=== PATIENT | male | born 1955 | race Caucasian/White ===

== ENCOUNTER 2018-02-12 11:57 | Outpatient (CLI) | payer BC ==
[~2018-02-12] VITALS: Ht 190.5 cm; Wt 103.5 kg
[2018-02-12] MEDS ORDERED: LEVO200T PO (12:11)
[2018-02-12] MEDS ORDERED: FLUO20CA25 PO (12:11)
[2018-02-12] MEDS ORDERED: TAMS0.4C2 PO (12:11)
[2018-02-12 12:22] VITALS: BP 145/84
== END 2018-02-12 12:58 | disposition home or self-care (01) ==
LOC: PREOP 11:57
PROVIDERS: ATTEND Podiatrist Foot & Ankle Surgery
DX: Z01.818 Encounter for other preprocedural examination (principal)
CPT/HCPCS: 87081

== ENCOUNTER 2018-02-24 06:19 | Day surgery (SDC) | payer BC ==
[~2018-02-24] VITALS: Ht 190.5 cm; Wt 103.5 kg
[~2018-02-24 06:19] MED LIST: FLUO20CA25 PO; LEVO200T PO; TAMS0.4C2 PO
[2018-02-24] MEDS ORDERED: LACTATED RINGERS 1,000 ML IV PRN (06:23)
[2018-02-24] MEDS ORDERED: ceFAZolin INJECTION 1,000 MG in NS (IVPB) 50 ML IV ONE (06:30)
[2018-02-24 06:35] VITALS: BP 141/84
--- OUTSIDE RECORDS SUMMARY | 2018-02-24 06:42 | XMS REPORT ---
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 Active 98563819 Problem Major depressive disorder, single episode, unspecified F32.9 Active 53008207 Problem Hypocalcemia E83.51 Active 6297581 Problem Cochlear implant in place Z96.21 Active 403821631 Problem Cellulitis of head except face L03.811 Active 201517485 Problem Malignant neoplasm of brain C71.9 Active 876402868 Problem Dermatophytosis of groin and perianal area B35.6 Active 763725977 Problem Unspecified psychosis F29 Active 07540884 Problem Neoplasm of brain D49.6 Active 125438185 Problem Tobacco abuse Z72.0 Active 109698976 Problem Tobacco abuse counseling Z71.6 Active 214747206 Problem Cardiac arrhythmia, unspecified cardiac arrhythmia type I49.9 Active 67247407 Problem Crohn's disease, unspecified, with other complication K50.918 Active 57203665 Problem Foot pain, left M79.672 Active 35830932 Problem Hypercalcemia E83.52 Active 17877045 ALLERGIES Substance Reaction Event Type Date Status Aspirin crohns Drug Allergy Jan, Active ENCOUNTERS Encounter Location Date Diagnosis [facility] [address] [place] [address] Jan, Bone spur of foot M77.50 and Foot pain, left M79.672 [facility] [address] [place] [address] Dec, Difficulty swallowing solids R13.10 ; Fatigue, unspecified type R53.83 ; Hyperparathyroidism E21.3 and 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 [facility] [address] [place] [address] [place] [address] Dec, [facility] [place] [address] [place] [address] Oct, Post- surgical hypothyroidism E89.0 [facility] [place] [address] [place] [address] May, Hyperparathyroidism E21.3 [facility] [place] [address] [place] [address] Mar, Hyperparathyroidism E21.3 ; Hypocalcemia E83.51 and Major depressive disorder, single episode, unspecified F32.9 [facility] [place] [address] [place] [address] Mar, Cellulitis of head except face L03.811 and Cochlear implant in place Z96.21 [facility] [place] [address] [place] [address] Feb, [facility] [place] [address] [place] [address] Feb, 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 [facility] [place] [address] [place] [address] Nov, Hyperparathyroidism E21.3 [facility] [place] [address] [place] [address] Oct, Hyperparathyroidism E21.3 [facility] [place] [address] [place] [address] Oct, [facility] [place] [address] [place] [address] Oct, [facility] [place] [address] [place] [address] Oct, [facility] [place] [address] [place] [address] Oct, [facility] [place] [address] [facility] [id number] [address] Oct, [facility] [place] [address] [place] [address] September, 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 [facility] [place] [address] [place] [address] September, Hypocalcemia E83.51 ; 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 and Major depressive disorder, single episode, unspecified F32.9 [facility] [address] [place] [address] September, Suicidal ideation R45.851 [facility] [address] [place] [address] Aug, Hypocalcemia E83.51 [facility] [place] [address] [place] [address] Jul, 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 [facility] [address] [place] [address] Jul, Hypercalcemia E83.52 [facility] [place] [address] [place] [address] Jul, Cellulitis of neck L03.221 [facility] [address] [place] [address] Jul, Cellulitis of other specified site L03.818 and Infected incision, initial encounter T81.4XXA [facility] [address] [place] [address] Jun, Hypercalcemia E83.52 [facility] [place] [address] [place] [address] Apr, Hypercalcemia E83.52 and Hyperparathyroidism E21.3 [facility] [place] [address] [place] [address] Apr, Hypercalcemia E83.52 [facility] [place] [address] [place] [address] Apr, Cardiac arrhythmia, unspecified cardiac arrhythmia type I49.9 and Pre-op evaluation Z01.818 [facility] [place] [address] [place] [address] 29 Oct, 2016 Cellulitis of head except face L03.811 [facility] [address] [place] [address] Oct, [facility] [address] [place] [address] Oct, Foot pain, left M79.672 ; Cardiac arrhythmia, unspecified cardiac arrhythmia type I49.9 ; Tobacco abuse Z72.0 ; Tobacco abuse counseling Z71.6 and Crohn's disease, unspecified, with other complication K50.[address] [address] Oct, Screening PSA (prostate specific antigen) Z12.[address] [address] Mar, Otitis externa of right ear H60.91 and Otitis media, right H66.[address] [address] Dec, Visit for suture removal V58.[address] [place] [address] Aug, [address] [place] [address] Aug, [facility] [address] [place] [address] Jun, [address] [place] [address] Jun, [facility] [address] [place] [address] Mar, [facility] [place] [address] [place], [place] [id number] [place] [address] Mar, [address] [address] Jan, [facility] [place] [address] [place], [place] [id number] [place] [address] Jan, [facility] [address] [place] [address] Jan, [facility] [place] [address] [facility] [id number], [place] [address] Jan, [facility] [address] [facility] [id number], [place] [address] Jan, [facility] [address] [facility] [id number], [place] [address] Dec, [facility] [place] [address] [place] [address] Dec, [facility] [place] [address] [place] [address] Dec, [facility] [address] [facility] [id number], [place] [address] Dec, [facility] [place] [address] [place] [address] Nov, [facility] [place] [address] [id number], [place] [address] Nov, [facility] [place] [address] [id number], [place] [address] Oct, [facility] [place] [address] [place] [address] Oct, [facility] [place] [address] [place] [address] Oct, [facility] [place] [address] [id number], [place] [address] Oct, [facility] [place] [address] [place] [address] September, [facility] [place] [address] [id number], [place] [address] September, [facility] [place] [address] [place] [address] Aug, [facility] [place] [address] [place] [address] Aug, [facility] [address] [id number], [place] [address] Aug, [facility] [place] [address], [place] [address] Aug, [facility] [address] [place] [address] Aug, [facility] [place] [address], [place] [address] Aug, [facility] [place] [address] May, [facility] [place] [address] [place] [address] May, [facility] [place] [address] Apr, [facility] [place] [id number] [place] [address] Apr, [facility] [place] [address] Feb, [facility] [place] [id number] [place] [address] Feb, [facility] [id number] [place] [address] Jan, [facility] [place] [address] [place] [address] Dec, [facility] [address] [place] [address] Dec, [address] [address] Dec, IMMUNIZATIONS No Known Immunizations SOCIAL HISTORY Never Assessed REASON FOR VISIT pre surgery physical , Bone spur surgery Nemo RN PLAN OF CARE Activity Details Follow Up prn Reason: VITAL SIGNS Height 73 in 2018-02-12 Weight 226.7 lbs 2018-02-12 Temperature 97.9 degrees Fahrenheit 2018-02-12 Heart Rate 67 bpm 2018-02-12 Respiratory Rate 16 2018-02-12 BMI 29.91 kg/m2 2018-02-12 Blood pressure systolic 136 mmHg 2018-02-12 Blood pressure diastolic 68 mmHg 2018-02-12 MEDICATIONS Medication Instructions Dosage Frequency Start Date End Date Duration Status Tums 500 mg Orally Four times a day 2 tablets 6h Active Synthroid 200 MCG Orally Once a day 1 tablet on an empty stomach in the morning 24h Feb, 30 day(s) Active Tamsulosin HCl 0.4 1 tab daily Active Fluoxetine HCl 20 mg Orally Once a day 1 capsule in the morning 24h 30 Active RESULTS No Results PROCEDURES No Known procedures INSTRUCTIONS MEDICATIONS ADMINISTERED No Known Medications MEDICAL (GENERAL) HISTORY Type Description Date Medical History Neoplasm of unspecified nature of brain Medical History Intracranial abscess Medical History Malignant neoplasm of brain, unspecified site Medical History Dermatophytosis of groin and perianal area Medical History Hematuria, unspecified Medical History Calculus of kidney Medical History Impacted cerumen Medical History Acute sinusitis, unspecified Medical History Fever, unspecified Medical History Unspecified psychosis Medical History Calculus of ureter Medical History Other bilateral bundle branch block Medical History Other specified cardiac dysrhythmias Medical History Benign neoplasm of bone and articular cartilage, site unspecified Medical History Regional enteritis of unspecified site Medical History Dysfunction of Eustachian tube Medical History Acute suppurative otitis media without spontaneous rupture of eardrum Medical History parathyroid/thyroid removal Medical History Intracranial abscess Medical History Dysfunction of Eustachian tube Medical History Calculus of ureter Medical History Regional enteritis of unspecified site Surgical History TUMOR REMOVAL Surgical History thyroidectomy, complete Hospitalization History Surgery(s) only
--- OUTSIDE RECORDS SUMMARY | 2018-02-24 06:42 | XMS REPORT | Referral Summary ---
Author Author [facility] Organization [facility] Address Unknown Phone Unavailable Care Team Providers Care Coroner Forensic Technician Name Role Phone Bennie Mcmillan PCP Encounter VC Date(s): 06/06/16 - 06/08/16 [facility] [address] [place] [address] Discharge Disposition: 01-Home or Self Care Attending Physician: Jeff Trevizo MD Admitting Physician: Jeff Trevizo MD Vital Signs Most recent to 1 oldest [Reference Range]: Temperature Oral 36.8 degC [35.8-37.3 degC] (06/08/16 12:27 PM) Temperature Skin 37.9 degC [36-37 degC] *HI* (06/07/16 2:15 PM) Temperature Temporal 36.4 degC Artery [36.3-37.8 (06/06/16 6:00 AM) degC] Peripheral Pulse 52 bpm Rate [60-100 bpm] *LOW* (06/08/16 12:27 PM) Heart Rate Monitored 69 bpm [60-100 bpm] (06/07/16 2:59 PM) Respiratory Rate 18 br/min [14-20 br/min] (06/08/16 12:27 PM) Blood Pressure 116/74 mmHg [90-140/60-90 mmHg] (06/08/16 12:27 PM) Mean Arterial 101 mmHg Pressure, Cuff (06/07/16 2:45 PM) SpO2 93 % (06/08/16 12:27 PM) Problem List Condition Effective Dates Status Health Status Informant Acute Active pain(Confirmed) Hypercalcemia(Confir Active patient med) Impaired skin Active integrity(Confirmed) 1 1Problem added automatically by system based on initiation of Impaired Skin Integrity Plan of Care Allergies, Adverse Reactions, Alerts No Known Medication Allergies Medications Percocet 5/325 oral tablet 1-2 tabs, Oral, q4hr, Pain Moderate (4-6), 0 Refill(s) Start Date: 06/08/16 Status: Ordered Rocaltrol 0.25 mcg oral capsule 0.5 mcg 2 caps, Oral, BID, # 120 caps, 0 Refill(s), Pharmacy: [facility], 2 caps Oral BID Start Date: 06/08/16 Status: Ordered tamsulosin 0.4 mg oral capsule 0.4 mg 1 caps, Oral, Daily, 0 Refill(s) Start Date: 06/05/16 Status: Ordered Tums 500 mg oral tablet, chewable 1,000 mg 2 tabs, Oral, QID, # 240 tabs, 0 Refill(s), Pharmacy: [facility], 2 tabs Oral QID Start Date: 06/08/16 Status: Ordered Results Hematology Most recent to 1 oldest [Reference Range]: WBC [4.8-10.8 8.0 10*3/uL 10*3/uL] (06/06/16 6:32 AM) RBC [4.60-6.20] 5.73 (06/06/16 6:32 AM) Hgb [14.0-18.0 17.0 gm/dL gm/dL] (06/06/16 6:32 AM) Hct [42.0-52.0 %] 52.0 % (06/06/16 6:32 AM) MCV [82.0-99.0 fL] 90.8 fL (06/06/16 6:32 AM) MCH [27.0-32.0 pg] 29.7 pg (06/06/16 6:32 AM) MCHC [32.0-36.0 32.7 gm/dL gm/dL] (06/06/16 6:32 AM) RDW [11.5-14.5 %] 13.1 % (06/06/16 6:32 AM) Platelet [150-400 237 10*3/uL 10*3/uL] (06/06/16 6:32 AM) MPV [9.4-12.3 fL] 10.2 fL (06/06/16 6:32 AM) Immature 0.4 % Granulocytes (06/06/16 6:32 AM) [0.0-1.0 %] Neutrophils [51-75 66 % %] (06/06/16 6:32 AM) Lymphocytes [20-46 17 % %] *LOW* (06/06/16 6:32 AM) Monocytes [4-11 %] 9 % (06/06/16 6:32 AM) Eosinophils [0-4 %] 6 % *HI* (06/06/16 6:32 AM) Basophils [0-2 %] 1 % (06/06/16 6:32 AM) Neutro Absolute 5.28 [1.90-7.00] (06/06/16 6:32 AM) Lymph Absolute 1.36 [0.80-3.30] (06/06/16 6:32 AM) Andrews Absolute 0.72 [0.30-1.00] (06/06/16 6:32 AM) Eos Absolute 0.51 [0.00-0.50] *HI* (06/06/16 6:32 AM) Baso Absolute 0.08 [0.00-0.20] (06/06/16 6:32 AM) Nucleated RBC 0.0 /100 WBC Automated [0 /100 (06/06/16 6:32 AM) WBC] Chemistry Most recent to 1 oldest [Reference Range]: Sodium Lvl [136-144 140 mEq/L mEq/L] (06/06/16 6:32 AM) Potassium Lvl 4.3 mEq/L 1 [3.6-5.1 mEq/L] (06/06/16 6:32 AM) Chloride [99-109 108 mEq/L mEq/L] (06/06/16 6:32 AM) CO2 [22-32 mEq/L] 23 mEq/L (06/06/16 6:32 AM) AGAP [3-20] 9 (06/06/16 6:32 AM) BUN [4-20 mg/dL] 12 mg/dL (06/06/16 6:32 AM) Glucose Lvl [70-100 94 mg/dL mg/dL] (06/06/16 6:32 AM) Creatinine Lvl 1.39 mg/dL [0.64-1.27 mg/dL] *HI* (06/06/16 6:32 AM) eGFR [>60] 52 2 *ABN* (06/06/16 6:32 AM) Calcium Lvl 8.4 mg/dL [8.6-10.0 mg/dL] *LOW* (06/08/16 1:26 PM) Albumin Lvl [3.5-4.8 3.7 gm/dL gm/dL] (06/06/16 6:32 AM) Total Protein 7.1 gm/dL [6.1-7.9 gm/dL] (06/06/16 6:32 AM) Globulin [1.9-4.3 3.4 gm/dL gm/dL] (06/06/16 6:32 AM) ALT [17-63 U/L] 19 U/L (06/06/16 6:32 AM) AST [15-41 U/L] 23 U/L (06/06/16 6:32 AM) Alk Phos [26-104 136 U/L U/L] *HI* (06/06/16 6:32 AM) Bili Total [0.2-1.2 0.8 mg/dL 3 mg/dL] (06/06/16 6:32 AM) Surg. Parathyroid 181.2 pg/mL Hormone (06/06/16 7:20 AM) Blood Glucose, 102 mg/dL Capillary [70-100 *HI* mg/dL] (06/07/16 10:21 AM) 1Result Comment: Hemolyzed specimen. The following tests may be affected: ALT, AST, Ammonia, Iron, Potassium, LDH, Amylase, CPK, and Total Bilirubin. 2Result Comment: Multiply eGFR results by 1.21 for race. 3Result Comment: Naproxen, specifically the metabolite O-desmethylnaproxen, may cause spurious elevation in Total Bilirubin levels. Blood Bank Results Most recent to 1 oldest [Reference Range]: ABO/Rh A POS (06/06/16 6:32 AM) Antibody Screen Tube NEG (06/06/16 6:32 AM) Immunizations Given and Recorded Vaccine Date Status Refusal Reason pneumococcal 23-polyvalent vaccine 06/08/16 Given Procedures Procedure Date Related Diagnosis Body Site Thyroidectomy1 06/07/16 Parathyroidectomy2 06/06/16 Anal fistula operation Bone3 Bone (organ)4 Colonoscopy Granuloma5 Hemorrhoidectomy 1auto-populated from documented surgical case 2auto-populated from documented surgical case 3RESTORATION - 2013 4REMOVAL R/T STAPH INFECTION 2013 5REMOVAL RAPA VATIVE GRANULOMA 2014 Social History Social History Type Response Smoking Status Current every day smoker; Tobacco use per day: 1 Pack Assessment and Plan No data available for this section
--- OUTSIDE RECORDS SUMMARY | 2018-02-24 06:42 | XMS REPORT ---
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 Active 32226951 Problem Major depressive disorder, single episode, unspecified F32.9 Active 09496186 Problem Hypocalcemia E83.51 Active 9676163 Problem Cochlear implant in place Z96.21 Active 720279622 Problem Cellulitis of head except face L03.811 Active 180457326 Problem Malignant neoplasm of brain C71.9 Active 522125638 Problem Dermatophytosis of groin and perianal area B35.6 Active 000719476 Problem Unspecified psychosis F29 Active 95904988 Problem Neoplasm of brain D49.6 Active 307657032 Problem Tobacco abuse Z72.0 Active 924552145 Problem Tobacco abuse counseling Z71.6 Active 160203055 Problem Cardiac arrhythmia, unspecified cardiac arrhythmia type I49.9 Active 20331248 Problem Crohn's disease, unspecified, with other complication K50.918 Active 34607099 Problem Foot pain, left M79.672 Active 31060003 Problem Hypercalcemia E83.52 Active 32884756 ALLERGIES Substance Reaction Event Type Date Status Aspirin crohns Drug Allergy Dec, Active ENCOUNTERS Encounter Location Date Diagnosis [facility] [address] [place] [address] Jan, [facility] [address] [place] [address] Dec, Difficulty swallowing solids R13.10 ; Fatigue, unspecified type R53.83 ; Hyperparathyroidism E21.3 and 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 [facility] [address] [address] [place] [address] Dec, [facility] [place] [address] [place] [address] Oct, Post- surgical hypothyroidism E89.0 [facility] [place] [address] [place] [address] May, Hyperparathyroidism E21.3 [facility] [place] [address] [place] [address] Mar, Hyperparathyroidism E21.3 ; Hypocalcemia E83.51 and Major depressive disorder, single episode, unspecified F32.9 [facility] [place] [address] [place] [address] Mar, Cellulitis of head except face L03.811 and Cochlear implant in place Z96.21 [facility] [place] [address] [place] [address] Feb, [facility] [place] [address] [place] [address] Feb, 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 [facility] [place] [address] [place] [address] Nov, Hyperparathyroidism E21.3 [facility] [place] [address] [place] [address] Oct, Hyperparathyroidism E21.3 [facility] [place] [address] [place] [address] Oct, [facility] [place] [address] [place] [address] Oct, [facility] [place] [address] [place] [address] Oct, [facility] [place] [address] [place] [address] Oct, [facility] [address] [facility] [id number] [place] [address] Oct, [facility] [place] [address] [place] [address] September, 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 [facility] [place] [address] [place] [address] September, Hypocalcemia E83.51 ; 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 and Major depressive disorder, single episode, unspecified F32.9 [facility] [place] [address] [place] [address] September, Suicidal ideation R45.851 [facility] [address] [place] [address] Aug, Hypocalcemia E83.51 [facility] [place] [address] [place] [address] Jul, 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 [facility] [place] [address] [place] [address] Jul, Hypercalcemia E83.52 [facility] [place] [address] [place] [address] Jul, Cellulitis of neck L03.221 [facility] [address] [place] [address] Jul, Cellulitis of other specified site L03.818 and Infected incision, initial encounter T81.4XXA [facility] [address] [place] [address] Jun, Hypercalcemia E83.52 [facility] [address] [place] [address] Apr, Hypercalcemia E83.52 and Hyperparathyroidism E21.3 [facility] [place] [address] [place] [address] Apr, Hypercalcemia E83.52 [facility] [place] [address] [place] [address] Apr, Cardiac arrhythmia, unspecified cardiac arrhythmia type I49.9 and Pre-op evaluation Z01.818 [facility] [place] [address] [place] [address] Feb, Cellulitis of head except face L03.811 [facility] [place] [address] [place] [address] Oct, [facility] [address] [place] [address] Oct, Foot pain, left M79.672 ; Cardiac arrhythmia, unspecified cardiac arrhythmia type I49.9 ; Tobacco abuse Z72.0 ; Tobacco abuse counseling Z71.6 and Crohn's disease, unspecified, with other complication K50.918 [facility] [address] [place] [address] Oct, Screening PSA (prostate specific antigen) Z12.5 [facility] [address] [address] [place] [address] Mar, Otitis externa of right ear H60.91 and Otitis media, right H66.[address] [address] Dec, Visit for suture removal V58.32 [address] [place] [address] Aug, [address] [place] [address] Aug, [facility] [address] [place] [address] Jun, [address] [place] [address] Jun, [facility] [address] [place] [address] Mar, [address] [address] Mar, [facility] [address] [place] [address] Jan, [address] [place] [address] Jan, [facility] [address] [place] [address] Jan, [place] [id number] [address] Jan, [facility] [address] [facility] [id number] [address] Jan, [facility] [address] [place] [id number] [address] Dec, [facility] [place] [address] [place] [address] Dec, [facility] [place] [address] [place] [address] Dec, [facility] [id number] [address] Dec, [facility] [place] [address] [place] [address] Nov, [facility] [id number] [address] Nov, [facility] [id number] [address] Oct, [facility] [place] [address] [place] [address] Oct, [facility] [place] [address] [place] [address] Oct, [facility] [id number] [address] Oct, [facility] [place] [address] [place] [address] September, [facility] [address] [id number] [address] September, [facility] [place] [address] [place] [address] Aug, [facility] [place] [address] [place] [address] Aug, [facility] [id number] [address] Aug, [facility] [address] [address] Aug, [facility] [address] [place] [address] Aug, [facility] [address] [address] Aug, [facility] [place] [address] May, [facility] [id number] [place] [address] May, [facility] [address] [place] [address] Apr, [facility] [address] [place] [address] [id number] [place] [address] Apr, [facility] [address] [place] [address] Feb, [place] [id number] [place] [address] Feb, [place] [id number] [place] [address] Jan, [place] [address] [place] [address] Dec, [address] [address] Dec, [address] [address] Dec, IMMUNIZATIONS No Known Immunizations SOCIAL HISTORY Never Assessed REASON FOR VISIT difficulty breathing/swallowing and neck will get sore; muscles in left leg tighten up; pt wondering if his thyroid med needs adjustment -- been on current dose since last ........lwileyrn PLAN OF CARE Activity Details Follow Up 2 Weeks Reason: VITAL SIGNS Height 73 in 2018-01-01 Weight 229.1 lbs 2018-01-01 Temperature 97.9 degrees Fahrenheit 2018-01-01 Heart Rate 64 bpm 2018-01-01 Respiratory Rate 16 2018-01-01 BMI 30.22 kg/m2 2018-01-01 Blood pressure systolic 142 mmHg 2018-01-01 Blood pressure diastolic 86 mmHg 2018-01-01 MEDICATIONS Medication Instructions Dosage Frequency Start Date End Date Duration Status Synthroid 200 MCG Orally Once a day 1 tablet on an empty stomach in the morning 24h Feb, 30 day(s) Active Tamsulosin HCl 0.4 1 tab daily Active Tums 500 mg Orally Four times a day 2 tablets 6h Active RESULTS No Results PROCEDURES Procedure Date Ordered Result Body Site X-RAY EXAM CHEST 2 VIEWS Jan 01, 2018 MANUAL CELL COUNT, EACH Jan 01, 2018 ASSAY THYROID STIM HORMONE Jan 01, 2018 COMPREHEN METABOLIC PANEL Jan 01, 2018 VENIPUNCT, ROUTINE* Jan 01, 2018 ASSAY OF FREE THYROXINE Jan 01, 2018 INSTRUCTIONS MEDICATIONS ADMINISTERED No Known Medications MEDICAL [...]
--- OUTSIDE RECORDS SUMMARY | 2018-02-24 06:42 | XMS REPORT | Referral Summary ---
Author Author Via Organization Via Address Unknown Phone Unavailable Care Team Providers Care Interior Wirer Name Role Phone Bennie Mcmillan PCP Encounter [facility] [id number] Date(s): 05/23/16 - 05/23/16 [facility] [address] [place], [place] [address] Discharge Disposition: 01-Home or Self Care Attending Physician: Bennie Mcmillan MD Vital Signs No data available for this section Problem List No data available for this section Allergies, Adverse Reactions, Alerts No data available for this section Medications No data available for this section Results No data available for this section Immunizations No data available for this section Procedures No data available for this section Social History No data available for this section Assessment and Plan No data available for this section
--- OUTSIDE RECORDS SUMMARY | 2018-02-24 06:42 | XMS REPORT ---
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 Active 38002491 Problem Cellulitis of neck L03.221 Active 60429291 Problem Difficulty swallowing solids R13.10 Active 953987583 Problem Post-surgical hypothyroidism E89.0 Active 47322399 Problem Major depressive disorder, single episode, unspecified F32.9 Active 23721183 Problem Hypocalcemia E83.51 Active 8369336 Problem Cochlear implant in place Z96.21 Active 388713744 Problem Cellulitis of head except face L03.811 Active 142503858 Problem Malignant neoplasm of brain C71.9 Active 746117169 Problem Dermatophytosis of groin and perianal area B35.6 Active 008261736 Problem Unspecified psychosis F29 Active 10120189 Problem Neoplasm of brain D49.6 Active 538435394 Problem Tobacco abuse Z72.0 Active 348812139 Problem Tobacco abuse counseling Z71.6 Active 094584704 Problem Cardiac arrhythmia, unspecified cardiac arrhythmia type I49.9 Active 62616237 Problem Crohn's disease, unspecified, with other complication K50.918 Active 61707045 Problem Foot pain, left M79.672 Active 95386062 Problem Hypercalcemia E83.52 Active 38439910 ALLERGIES No Information ENCOUNTERS Encounter Location Date Diagnosis [facility] [address] [place] [address] Jan, [facility] [address] [place] [address] Dec, Difficulty swallowing solids R13.10 ; Fatigue, unspecified type R53.83 ; Hyperparathyroidism E21.3 and 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 [facility] [place] [address] [place] [address] Dec, [facility] [place] [address] [place] [address] Oct, Post- surgical hypothyroidism E89.0 [facility] [place] [address] [place] [address] May, Hyperparathyroidism E21.3 [facility] [place] [address] [place] [address] Mar, Hyperparathyroidism E21.3 ; Hypocalcemia E83.51 and Major depressive disorder, single episode, unspecified F32.9 [facility] [place] [address] [place] [address] Mar, Cellulitis of head except face L03.811 and Cochlear implant in place Z96.21 [facility] [place] [address] [place] [address] Feb, [facility] [place] [address] [place] [address] Feb, 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 [facility] [place] [address] [place] [address] Nov, Hyperparathyroidism E21.3 [facility] [place] [address] [place] [address] Oct, Hyperparathyroidism E21.3 [facility] [place] [address] [place] [address] Oct, [facility] [place] [address] [place] [address] Oct, [facility] [place] [address] [place] [address] Oct, [facility] [place] [address] [place] [address] Oct, [facility] [address] [facility] [id number] [address] Oct, [facility] [place] [address] [place] [address] September, 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 [facility] [place] [address] [place] [address] September, Hypocalcemia E83.51 ; 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 and Major depressive disorder, single episode, unspecified F32.9 [facility] [place] [address] [place] [address] September, Suicidal ideation R45.851 [facility] [place] [address] [place] [address] Aug, Hypocalcemia E83.51 [facility] [place] [address] [place] [address] Jul, 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 [facility] [place] [address] [place] [address] Jul, Hypercalcemia E83.52 [facility] [address] [place] [address] Jul, Cellulitis of neck L03.221 [facility] [address] [place] [address] Jul, Cellulitis of other specified site L03.818 and Infected incision, initial encounter T81.4XXA [facility] [address] [place] [address] Jun, Hypercalcemia E83.52 [facility] [place] [address] [place] [address] Apr, Hypercalcemia E83.52 and Hyperparathyroidism E21.3 [facility] [address] [place] [address] Apr, Hypercalcemia E83.52 [facility] [place] [address] [place] [address] Apr, Cardiac arrhythmia, unspecified cardiac arrhythmia type I49.9 and Pre-op evaluation Z01.818 [facility] [place] [address] [place] [address] Feb, Cellulitis of head except face L03.811 [facility] [place] [address] [place] [address] Oct, [facility] [address] [place] [address] Oct, Foot pain, left M79.672 ; Cardiac arrhythmia, unspecified cardiac arrhythmia type I49.9 ; Tobacco abuse Z72.0 ; Tobacco abuse counseling Z71.6 and Crohn's disease, unspecified, with other complication K50.918 [facility] [address] [place] [address] Oct, Screening PSA (prostate specific antigen) Z12.5 [facility] [address] [place] [address] Mar, Otitis externa of right ear H60.91 and Otitis media, right H66.[address] [address] Dec, Visit for suture removal V58.32 [place] [id number] [place] [address] Aug, [place] [id number] [place] [address] Aug, [facility] [address] [place] [address] Jun, [place] [id number] [place] [address]- [address] Jun, [address] [address] Mar, [place] [id number] [place] [address] Mar, [address] [address] Jan, [place] [id number] [place] [address] Jan, [address] [address] Jan, [place] [id number] [place] [address] Jan, [facility] [address] [facility] [address] [id number] [address] Jan, [facility] [address] [place] [id number] [address] Dec, [facility] [place] [address] [place] [address] Dec, [facility] [place] [address] [place] [address] Dec, [facility] [id number] [address] Dec, [facility] [place] [address] [place] [address] Nov, [facility] [address] [id number] [address] Nov, [facility] [address] [id number], [place] [address] Oct, [facility] [place] [address] [place] [address] Oct, [facility] [place] [address] [place] [address] Oct, [facility] [address] [id number] [address] Oct, [facility] [place] [address] [place] [address] September, [facility] [address] [id number] [address] September, [facility] [place] [address] [place] [address] Aug, [facility] [place] [address] [place] [address] Aug, [facility] [id number] [address] Aug, [facility] [address] [id number] [address] Aug, [facility] [address] [place] [address] Aug, [facility] [address] [place] [id number] [place] [address] Aug, [facility] [address] [place] [address] May, [place] [id number] [place] [address] May, [facility] [address] [place] [address] Apr, [place] [id number] [place] [address] Apr, [facility] [address] [place] [address] Feb, [place] [id number] [place] [address]- [address] Feb, [address] [place] [address]- [address] Jan, [place] [id number] [place] [address] Dec, [address] [address] Dec, [address] [address] Dec, IMMUNIZATIONS No Known Immunizations SOCIAL HISTORY Never Assessed REASON FOR VISIT medication reaction PLAN OF CARE VITAL SIGNS MEDICATIONS Unknown Medications RESULTS No Results PROCEDURES No Known procedures [...]
--- OUTSIDE RECORDS SUMMARY | 2018-02-24 06:43 | XMS REPORT ---
Author Author OTIS KEMP [facility] Address [address] [place] [address] Care Team Providers Care Automotive Service Professional Name Role Phone OTIS KEMP Unavailable PROBLEMS Type Condition ICD9-CM Code IOM64-VN Code Onset Dates Condition Status SNOMED Code Problem Fever, unspecified 780.60 Active 923722239 Problem Hematuria, unspecified 599.70 Active 63803318 Problem Calculus of ureter 592.1 Active 75868925 Problem Calculus of kidney 592.0 Active 86818936 Problem Tobacco abuse Z72.0 Active 241600386 Problem Regional enteritis of unspecified site 555.9 Active 34750722 Problem Tobacco abuse counseling Z71.6 Active 966913115 Problem Acute sinusitis, unspecified 461.9 Active 19463640 Problem Cardiac arrhythmia, unspecified cardiac arrhythmia type I49.9 Active 20799191 Problem Crohn's disease, unspecified, with other complication K50.918 Active 13568734 Problem Foot pain, left M79.672 Active 83599287 Problem Major depressive disorder, single episode, unspecified F32.9 Active 53508777 Problem Hypocalcemia E83.51 Active 4781116 Problem Acute suppurative otitis media without spontaneous rupture of eardrum 382.00 Active 18735867 Problem Other bilateral bundle branch block 426.53 Active 19024079 Problem Other specified cardiac dysrhythmias 427.89 Active 634560793 Problem Hyperparathyroidism E21.3 Active 08382793 Problem Hypercalcemia E83.52 Active 17894743 Problem 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 Active 80350658 Problem Cellulitis of neck L03.221 Active 87181217 Problem 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 Active 99753971 Problem Unspecified psychosis 298.9 Active 27585939 Problem Dysfunction of Eustachian tube 381.81 Active 77675400 Problem Impacted cerumen 380.4 Active 90532589 Problem Malignant neoplasm of brain, unspecified site 191.9 Active 060538663 Problem Dermatophytosis of groin and perianal area 110.3 Active 343777050 Problem Neoplasm of unspecified nature of brain 239.6 Active 036493670 Problem Benign neoplasm of bone and articular cartilage, 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 Active 43436319 ALLERGIES No Information SOCIAL HISTORY Never Assessed PLAN OF CARE VITAL SIGNS MEDICATIONS Unknown Medications RESULTS Name Result Date Reference Range CALCIUM 2016-06-29 Request Problem Calcium, Serum PROCEDURES Procedure Date Ordered Result Body Site ASSAY OF CALCIUM Jun 29, 2016 VENIPUNCT, ROUTINE* Jun 29, 2016 IMMUNIZATIONS No Known Immunizations MEDICAL (GENERAL) HISTORY Type Description Date Medical [...] rupture of eardrum Medical History parathyroid/thyroid removal Surgical History TUMOR REMOVAL Surgical History thyroidectomy, complete Hospitalization History Surgery(s) only
--- OUTSIDE RECORDS SUMMARY | 2018-02-24 06:43 | XMS REPORT ---
Author [facility] Address [address] [place] [address] Care Team Providers Care Generation Technologist Name Role Phone OTIS KEMP Unavailable PROBLEMS Type Condition ICD9-CM Code TUT04-PN Code Onset Dates Condition Status SNOMED Code Problem Fever, unspecified 780.60 Active 422146583 Problem Hematuria, unspecified 599.70 Active 48681257 Problem Calculus of ureter 592.1 Active 11656572 Problem Calculus of kidney 592.0 Active 18249575 Problem Regional enteritis of unspecified site 555.9 Active 27571655 Problem Acute sinusitis, unspecified 461.9 Active 52567613 Problem Tobacco abuse counseling Z71.6 Active 201553945 Problem Other specified cardiac dysrhythmias 427.89 Active 369926222 Problem Foot pain, left M79.672 Active 81578250 Problem Other bilateral bundle branch block 426.53 Active 01140378 Problem Crohn's disease, unspecified, with other complication K50.918 Active 08761143 Problem Hyperparathyroidism E21.3 Active 84791448 Problem Hypercalcemia E83.52 Active 74272995 Problem Cochlear implant in place Z96.21 Active 971860112 Problem Cellulitis of head except face L03.811 Active 210103819 Problem Impacted cerumen 380.4 Active 71453387 Problem Dysfunction of Eustachian tube 381.81 Active 99073679 Problem Acute suppurative otitis media without spontaneous rupture of eardrum 382.00 Active 47217233 Problem 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 Active 85650350 Problem Cellulitis of neck L03.221 Active 64559193 Problem Major depressive disorder, single episode, unspecified F32.9 Active 79959925 Problem Hypocalcemia E83.51 Active 3923961 Problem Neoplasm of unspecified nature of brain 239.6 Active 216433797 Problem Benign neoplasm of bone and articular cartilage, 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 Active 33909980 Problem 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 Active 47995757 Problem Unspecified psychosis 298.9 Active 37041555 Problem Cardiac arrhythmia, unspecified cardiac arrhythmia type I49.9 Active 35000337 Problem Tobacco abuse Z72.0 Active 160957988 Problem Malignant neoplasm of brain, unspecified site 191.9 Active 820587819 Problem Dermatophytosis of groin and perianal area 110.3 Active 505559483 ALLERGIES Substance Reaction Event Type Date Status Aspirin crohns Drug Allergy September, Active SOCIAL HISTORY Never Assessed PLAN OF CARE Activity Details Follow Up 3 Weeks Reason:labs VITAL SIGNS Height 74 in 2016-09-26 Weight 228.6 lbs 2016-09-26 Temperature 98.9 degrees Fahrenheit 2016-09-26 Heart Rate 62 bpm 2016-09-26 Respiratory Rate 18 2016-09-26 Oximetry 98 % 2016-09-26 BMI 29.35 kg/m2 2016-09-26 Blood pressure systolic 126 mmHg 2016-09-26 Blood pressure diastolic 76 mmHg 2016-09-26 MEDICATIONS Medication Instructions Dosage Frequency Start Date End Date Duration Status Tamsulosin HCl 0.4 MG Orally Once a day 1 capsule 30 minutes after the same meal each day 24h Active Calcitriol 0.5 MCG Orally Twice a day 1 capsule 12h Active Prozac 10 MG Orally Once a day 1 capsule in the morning 24h Active Augmentin 875-125 MG Orally every 12 hrs 1 tablet 12h Active Synthroid 175 MCG Orally Once a day 1 tablet on an empty stomach in the morning 24h Active RESULTS No Results PROCEDURES Procedure Date Ordered Result Body Site MEASURE BLOOD OXYGEN LEVEL September 26, 2016 IMMUNIZATIONS No Known Immunizations MEDICAL (GENERAL) [...]
--- OUTSIDE RECORDS SUMMARY | 2018-02-24 06:43 | XMS REPORT ---
Author Author FRANCISCA SAMANIEGO Organization [facility] [address] Address [address] [place] [address] Care Team Providers Care Developer Programmer Analyst Name Role Phone FRANCISCA SAMANIEGO Unavailable PROBLEMS Type Condition ICD9-CM Code EQF07-BU Code Onset Dates Condition Status SNOMED Code Problem Hyperparathyroidism E21.3 Active 67068642 Problem 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 Active 06193057 Problem Cellulitis of neck L03.221 Active 64244808 Problem Difficulty swallowing solids R13.10 Active 086257528 Problem Post-surgical hypothyroidism E89.0 Active 43794541 Problem Major depressive disorder, single episode, unspecified F32.9 Active 95613858 Problem Hypocalcemia E83.51 Active 7151252 Problem Cochlear implant in place Z96.21 Active 162193657 Problem Cellulitis of head except face L03.811 Active 853865395 Problem Malignant neoplasm of brain C71.9 Active 405452865 Problem Dermatophytosis of groin and perianal area B35.6 Active 681198716 Problem Unspecified psychosis F29 Active 44137886 Problem Neoplasm of brain D49.6 Active 641618661 Problem Tobacco abuse Z72.0 Active 322395678 Problem Tobacco abuse counseling Z71.6 Active 169710390 Problem Cardiac arrhythmia, unspecified cardiac arrhythmia type I49.9 Active 94419559 Problem Crohn's disease, unspecified, with other complication K50.918 Active 44669708 Problem Foot pain, left M79.672 Active 91775574 Problem Hypercalcemia E83.52 Active 50215512 ALLERGIES No Information ENCOUNTERS Encounter Location Date Diagnosis [facility] [address] [place] [address] 15 Dec, 2017 Difficulty swallowing solids R13.10 ; Fatigue, unspecified type R53.83 ; Hyperparathyroidism E21.3 and 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 [facility] [address] [place] [address] Dec, [facility] [address] [place] [address] Oct, Post- surgical hypothyroidism E89.0 [facility] [address] [place] [address] May, Hyperparathyroidism E21.3 [facility] [address] [place] [address] Mar, Hyperparathyroidism E21.3 ; Hypocalcemia E83.51 and Major depressive disorder, single episode, unspecified F32.9 [facility] [address] [place] [address] Mar, Cellulitis of head except face L03.811 and [address] implant in place Z96.21 [facility] [address] [place] [address] Feb, [facility] [address] [place] [address] Feb, 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 [facility] [address] [place] [address] Nov, Hyperparathyroidism E21.3 [facility] [address] [place] [address] Oct, Hyperparathyroidism E21.3 [facility] [address] [place] [address] Oct, [facility] [address] [place] [address] Oct, [facility] [address] [place] [address] Oct, [facility] [address] [place] [address] Oct, [facility] [address] [facility] [id number] [address] Oct, [facility] [address] [place] [address] September, 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 [facility] [address] [place] [address] September, Hypocalcemia E83.51 ; 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 and Major depressive disorder, single episode, unspecified F32.[address] [address] September, Suicidal ideation R45.[address] [address] Aug, Hypocalcemia E83.[address] [address] Jul, 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 [address] Jul, Hypercalcemia E83.[address] [address] Jul, Cellulitis of neck L03.[address] [address] Jul, Cellulitis of other specified site L03.818 and Infected incision, initial encounter T81.4XXA [address] [address] Jun, Hypercalcemia E83.[address] [address] Apr, Hypercalcemia E83.52 and Hyperparathyroidism E21.[address] [address] Apr, Hypercalcemia E83.[address] [address] Apr, Cardiac arrhythmia, unspecified cardiac arrhythmia type I49.9 and Pre-op evaluation Z01.[address] [address] Feb, Cellulitis of head except face L03.[address] [address] Oct, [address] [address] 07 Oct, 2015 Foot pain, left M79.672 ; Cardiac arrhythmia, unspecified cardiac arrhythmia type I49.9 ; Tobacco abuse Z72.0 ; Tobacco abuse counseling Z71.6 and Crohn's disease, unspecified, with other complication K50.918 [facility] [address] [place] [address] Oct, Screening PSA (prostate specific antigen) Z12.[address] [address] Mar, Otitis externa of right ear H60.91 and Otitis media, right H66.[address] [address] Dec, Visit for suture removal V58.32 [facility] [place] [address] [place], [place] [id number] [place] [address] Aug, [facility] [place] [address] [place] [id number] [place] [address] Aug, [address] [address] Jun, [facility] [place] [address] [place] [id number] [place] [address] Jun, [address] [address] Mar, [facility] [place] [address] [place] [id number] [place] [address] Mar, [address] [address] Jan, [facility] [place] [address] [place] [address] [address] Jan, [address] [address] Jan, [facility] [place] [address] [place] [address] [address] Jan, [facility] [place] [address] [place] [id number] [place] [address] Jan, [facility] [place] [address] [address] Dec, [address] [address] Dec, [address] [place] [address] Dec, [facility] [address] [id number] [address] Dec, [facility] [address] [place] [address] Nov, [facility] [address] [id number] [address] Nov, [facility] [address] [id number] [address] Oct, [facility] [address] [place] [address] Oct, [facility] [address] [place] [address] Oct, [facility] [address] [id number] [address] Oct, [facility] [address] [place] [address] September, [facility] [address] [id number] [address] September, [facility] [address] [place] [address] Aug, [facility] [address] [place] [address] Aug, [facility] [address] [id number] [address] Aug, [facility] [address] [id number] [address] Aug, [facility] [address] [place] [address] Aug, [facility] [address] [id number] [address] Aug, [facility] [address] [place] [address] May, [facility] [address] [id number] [address] May, [facility] [address] [place] [address] Apr, [facility] [place] [address] [place] [id number] [address] Apr, [address] [address] Feb, [id number] [address] Feb, [address] [id number] [address] Jan, [address] [id number] [place] [address] Dec, [address] [address] Dec, [address] [address] Dec, IMMUNIZATIONS No Known Immunizations SOCIAL HISTORY Never Assessed REASON FOR VISIT Lab (walk-in) Shiela, please fax results to Dr Trevizo at [phone] PLAN OF CARE Activity Details Follow Up prn Reason: VITAL SIGNS MEDICATIONS No Known Medications RESULTS Name Result Date Reference Range TSH 2017-11-11 TSH 0.02 0.40-4.50 PROCEDURES Procedure Date Ordered Result Body Site ASSAY THYROID STIM HORMONE November 11, 2017 VENIPUNCT, ROUTINE* November 11, 2017 INSTRUCTIONS MEDICATIONS ADMINISTERED No Known Medications MEDICAL [...]
--- OUTSIDE RECORDS SUMMARY | 2018-02-24 06:43 | XMS REPORT ---
Author Author ROSALIE CRAIN Organization [facility] Address [address] [place] [address] Care Team Providers Care Vp Ad Sales West Name Role Phone ROSALIE CRAIN Unavailable PROBLEMS Type Condition ICD9-CM Code ZOY59-TS Code Onset Dates Condition Status SNOMED Code Problem Fever, unspecified 780.60 Active 431559035 Problem Hematuria, unspecified 599.70 Active 24424184 Problem Calculus of ureter 592.1 Active 82576706 Problem Calculus of kidney 592.0 Active 14156814 Problem Tobacco abuse Z72.0 Active 507567849 Problem Regional enteritis of unspecified site 555.9 Active 31390672 Problem Tobacco abuse counseling Z71.6 Active 639469153 Problem Acute sinusitis, unspecified 461.9 Active 58147192 Problem Cardiac arrhythmia, unspecified cardiac arrhythmia type I49.9 Active 47504759 Problem Crohn's disease, unspecified, with other complication K50.918 Active 82561384 Problem Foot pain, left M79.672 Active 15107624 Problem Major depressive disorder, single episode, unspecified F32.9 Active 58383059 Problem Hypocalcemia E83.51 Active 6262900 Problem Acute suppurative otitis media without spontaneous rupture of eardrum 382.00 Active 34809004 Problem Other bilateral bundle branch block 426.53 Active 32746323 Problem Other specified cardiac dysrhythmias 427.89 Active 497205233 Problem Hyperparathyroidism E21.3 Active 84071284 Problem Hypercalcemia E83.52 Active 61437766 Problem 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 Active 02576962 Problem Cellulitis of neck L03.221 Active 59163738 Problem 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 Active 04526462 Problem Unspecified psychosis 298.9 Active 85111866 Problem Dysfunction of Eustachian tube 381.81 Active 28518751 Problem Impacted cerumen 380.4 Active 40659019 Problem Malignant neoplasm of brain, unspecified site 191.9 Active 288337348 Problem Dermatophytosis of groin and perianal area 110.3 Active 792782897 Problem Neoplasm of unspecified nature of brain 239.6 Active 805679545 Problem Benign neoplasm of bone and articular cartilage, 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 Active 70125097 ALLERGIES Substance Reaction Event Type Date Status Aspirin crohns Drug Allergy Jul, Active SOCIAL HISTORY Never Assessed PLAN OF CARE Activity Details Follow Up prn Reason: VITAL SIGNS Height 74 in 2016 Weight 241.8 lbs 2016 Temperature 98.2 degrees Fahrenheit 2016 Heart Rate 64 bpm 2016 Respiratory Rate 18 2016 BMI 31.04 kg/m2 2016 Blood pressure systolic 128 mmHg 2016 Blood pressure diastolic 78 mmHg 2016 MEDICATIONS Medication Instructions Dosage Frequency Start Date End Date Duration Status Synthroid 125 MCG Orally Once a day 1 tablet on an empty stomach in the morning 24h Active Tamsulosin HCl 0.4 MG Orally Once a day 1 capsule 30 minutes after the same meal each day 24h Active Cephalexin 250 MG Orally Four times a day 1 capsule 6h Active Lortab 5 500-5 MG Orally every 6 hrs 1 tablet as needed 6h Active Cephalexin 500 MG Orally every 12 hrs 1 capsule 12h Jul, Jul, 10 day(s) Active RESULTS No Results PROCEDURES No Known procedures IMMUNIZATIONS No Known Immunizations MEDICAL (GENERAL) HISTORY [...]
--- OUTSIDE RECORDS SUMMARY | 2018-02-24 06:43 | XMS REPORT ---
Author Author [facility]P [facility] Address [address] [place] [address] Care Team Providers Care Linux Network Administrator Name Role Phone OTIS KEMP Unavailable PROBLEMS Type Condition ICD9-CM Code ZAN96-WR Code Onset Dates Condition Status SNOMED Code Problem Fever, unspecified 780.60 Active 659921263 Problem Hematuria, unspecified 599.70 Active 22950061 Problem Calculus of ureter 592.1 Active 86873968 Problem Calculus of kidney 592.0 Active 78123592 Problem Regional enteritis of unspecified site 555.9 Active 63958940 Problem Acute sinusitis, unspecified 461.9 Active 94262025 Problem Tobacco abuse counseling Z71.6 Active 799265472 Problem Other specified cardiac dysrhythmias 427.89 Active 487763627 Problem Foot pain, left M79.672 Active 01879217 Problem Other bilateral bundle branch block 426.53 Active 43471640 Problem Crohn's disease, unspecified, with other complication K50.918 Active 89989141 Problem Hyperparathyroidism E21.3 Active 21171781 Problem Hypercalcemia E83.52 Active 09688633 Problem Cochlear implant in place Z96.21 Active 850326263 Problem Cellulitis of head except face L03.811 Active 527675635 Problem Impacted cerumen 380.4 Active 77749084 Problem Dysfunction of Eustachian tube 381.81 Active 99912277 Problem Acute suppurative otitis media without spontaneous rupture of eardrum 382.00 Active 28268888 Problem 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 Active 83320526 Problem Cellulitis of neck L03.221 Active 25696149 Problem Major depressive disorder, single episode, unspecified F32.9 Active 55975733 Problem Hypocalcemia E83.51 Active 3828062 Problem Neoplasm of unspecified nature of brain 239.6 Active 443724805 Problem Benign neoplasm of bone and articular cartilage, 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 Active 52127640 Problem 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 Active 84989785 Problem Unspecified psychosis 298.9 Active 55620141 Problem Cardiac arrhythmia, unspecified cardiac arrhythmia type I49.9 Active 86302668 Problem Tobacco abuse Z72.0 Active 440523210 Problem Malignant neoplasm of brain, unspecified site 191.9 Active 367322073 Problem Dermatophytosis of groin and perianal area 110.3 Active 219968976 ALLERGIES No Information ENCOUNTERS Encounter Location Date Diagnosis [facility] [place] [address] [place] [address] [address] [id number] [place] [id number] May, Hyperparathyroidism E21.3 [facility] [place] [address] [place] [address] [address] [id number] [place] [id number] Mar, Hyperparathyroidism E21.3 ; Hypocalcemia E83.51 and Major depressive disorder, single episode, unspecified F32.9 [facility] [place] [address] [place] [address] C [id number] [place] [id number] Mar, Cellulitis of head except face L03.811 and Cochlear implant in place Z96.21 [facility] [place] [address] [place] [address] [address] [id number] [place] [id number] Feb, [facility] [place] [address] [place] [address] [address] [id number] [place] [id number] Feb, 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 [facility] [place] [address] [place] [address] [address] [id number] [place] [id number] Nov, Hyperparathyroidism E21.3 [facility] [place] [address] [place] [address] C [id number] [place] [id number] Oct, Hyperparathyroidism E21.3 [facility] [place] [address] [place] [address] [address] [id number] [place] [id number] Oct, [facility] [place] [address] [place] [address] [address] [id number] [place] [id number] Oct, [facility] [place] [address] [place] [address] [address] [id number] [place] [id number] Oct, [facility] [place] [address] [place] [address] [address] [id number] [place] [id number] Oct, [facility] [address] [facility] [id number] [place] [address] Oct, [facility] [place] [address] [facility] C [id number] [place] [id number] September, 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 [facility] [place] [address] [place] [address] C [id number] [place] [id number] September, Hypocalcemia E83.51 ; 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 and Major depressive disorder, single episode, unspecified F32.9 [facility] [place] [address] [place] [address] [address] [id number] [place] [id number] September, Suicidal ideation R45.851 [facility] [place] [address] [place] [address] C [id number] [place] [id number] Aug, Hypocalcemia E83.51 [facility] [place] [address] [place] [address] C [id number] [place] [id number] Jul, 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 [facility] [place] [address] [place] [address] [address] [id number] [place] [id number] Jul, Hypercalcemia E83.52 [facility] [place] [address] [place] [address] C [id number] [place] [id number] Jul, Cellulitis of neck L03.221 [facility] [place] [address] [place] [address] C [id number] [place] [id number] Jul, Cellulitis of other specified site L03.818 and Infected incision, initial encounter T81.4XXA [facility] [place] [address] [place] [address] [address] [id number] [place] [id number] Jun, Hypercalcemia E83.52 [facility] [place] [address] [place] [address] C [id number] [place] [id number] Apr, Hypercalcemia E83.52 and Hyperparathyroidism E21.3 [facility] [place] [address] [place] [address] C [id number] [place] [id number] Apr, Hypercalcemia E83.52 [facility] [place] [address] [place] [address] C [id number] [place] [id number] Apr, Cardiac arrhythmia, unspecified cardiac arrhythmia type I49.9 and Pre-op evaluation Z01.818 [facility] [place] [address] [facility] [address] [id number] [place] [id number] Feb, Cellulitis of head except face L03.811 [facility] [place] [address] [facility] [address] [id number] [place] [id number] Oct, [facility] [place] [address] [facility] [address] [id number] [place] [id number] Oct, Foot pain, left M79.672 ; Cardiac arrhythmia, unspecified cardiac arrhythmia type I49.9 ; Tobacco abuse Z72.0 ; Tobacco abuse counseling Z71.6 and Crohn's disease, unspecified, with other complication K50.918 [facility] [place] [address] [facility] [address] [id number] [place] [id number] Oct, Screening PSA (prostate specific antigen) Z12.5 [facility] [place] [address] [place] [address] [address] [id number] [place] [id number] Mar, Otitis externa of right ear H60.91 and Otitis media, right H66.91 [facility] [place] [address] [place] [address] [address] [id number] [place] [id number] Dec, Visit for suture removal V58.32 [facility] [address] [address] Aug, [facility] [id number] [address] Aug, [facility] [place] [address] [place] [address] [address] [id number] [place] [id number] Jun, [facility] [address] [facility] [id number] [address] Jun, [facility] [place] [address] [place] [address] [address] [id number] [place] [id number] Mar, [facility] [address] [address] Mar, [facility] [place] [address] [facility] [address] [id number] [place] [id number] Jan, [facility] [place] [facility] [address] [id number] [place] [address] Jan, [facility] [place] [address] [id number] [place] [id number] Jan, [facility] [place] [facility] [address] [id number] [place] [address] Jan, [facility] [place] [facility] [address] [id number] [place] [address] Jan, [facility] [place] [facility] [address] [id number] [place] [address] Dec, [facility] [place] [address] [id number] [place] [id number] Dec, [facility] [place] [address] [id number] [place] [id number] Dec, [facility] [place] [facility] [address] [id number] [place] [address] Dec, [facility] [place] [address] [id number] [place] [id number] Nov, [facility] [place] [facility] [address] [id number] [place] [address] Nov, [facility] [place] [facility] [address] [id number] [place] [address] Oct, [facility] [place] [address] [id number] [place] [id number] Oct, [facility] [place] [address] [id number] [place] [id number] Oct, [facility] [place] [facility] [address] [id number] [place] [address] Oct, [facility] [place] [address] [id number] [place] [id number] September, [facility] [place] [facility] [address] [id number] [place] [address] September, [facility] [place] [address] [id number] [place] [id number] Aug, [facility] [place] [address] [facility] [address] [id number] [place] [id number] Aug, [facility] [place] [facility] [address] [id number] [facility] [place] [address] Aug, [facility] [address] [facility] [id number] [facility] [place] [address] Aug, [facility] [place] [address] [facility] [address] [id number] [place] [id number] Aug, [facility] [address] [id number] [place] [address] Aug, [facility] [place] [address] [facility] [address] [id number] [place] [id number] May, [facility] [address] [facility] [id number] [place] [address] May, [facility] [place] [address] [facility] [address] [id number] [place] [id number] Apr, [facility] [address] [facility] [id number] [facility] [place] [address] Apr, [facility] [place] [address] [facility] [address] [id number] [place] [id number] Feb, [facility] [address] [facility] [id number] [place] [address] Feb, [facility] [address] [facility] [id number] [place] [address] Jan, [facility] [address] [facility] [id number] [place] [address] Dec, [facility] [place] [address] [facility] [address] [id number] [place] [id number] Dec, [facility] [place] [address] [facility] [address] [id number] [place] [id number] Dec, IMMUNIZATIONS No Known Immunizations SOCIAL HISTORY Never Assessed REASON FOR VISIT Lab (walk-in), [facility] PLAN OF CARE Activity Details Follow Up prn Reason: VITAL SIGNS MEDICATIONS Unknown Medications RESULTS Name Result Date Reference Range TSH 2016-11-19 TSH 1.620 0.450-4.500 PROCEDURES Procedure Date Ordered Result Body Site VENIPUNCT, ROUTINE* November 19, 2016 ASSAY THYROID STIM HORMONE November 19, 2016 INSTRUCTIONS MEDICATIONS ADMINISTERED No Known Medications MEDICAL [...]
--- OUTSIDE RECORDS SUMMARY | 2018-02-24 06:43 | XMS REPORT ---
Author Author OTIS KEMP [facility] Address [address] [place] [address] Care Team Providers Care Tuber Helper Name Role Phone OTIS KEMP Unavailable PROBLEMS Type Condition ICD9-CM Code WIP48-VX Code Onset Dates Condition Status SNOMED Code Problem Fever, unspecified 780.60 Active 293492049 Problem Hematuria, unspecified 599.70 Active 78687490 Problem Calculus of ureter 592.1 Active 15280315 Problem Calculus of kidney 592.0 Active 08337902 Problem Tobacco abuse Z72.0 Active 808791228 Problem Regional enteritis of unspecified site 555.9 Active 32936263 Problem Tobacco abuse counseling Z71.6 Active 038595131 Problem Acute sinusitis, unspecified 461.9 Active 60323992 Problem Cardiac arrhythmia, unspecified cardiac arrhythmia type I49.9 Active 91812908 Problem Crohn's disease, unspecified, with other complication K50.918 Active 07399352 Problem Foot pain, left M79.672 Active 81469157 Problem Major depressive disorder, single episode, unspecified F32.9 Active 13182485 Problem Hypocalcemia E83.51 Active 1045038 Problem Acute suppurative otitis media without spontaneous rupture of eardrum 382.00 Active 04197078 Problem Other bilateral bundle branch block 426.53 Active 27373282 Problem Other specified cardiac dysrhythmias 427.89 Active 642950787 Problem Hyperparathyroidism E21.3 Active 27737665 Problem Hypercalcemia E83.52 Active 44503768 Problem 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 Active 49924760 Problem Cellulitis of neck L03.221 Active 55977045 Problem 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 Active 14372667 Problem Unspecified psychosis 298.9 Active 81470234 Problem Dysfunction of Eustachian tube 381.81 Active 25871264 Problem Impacted cerumen 380.4 Active 24224730 Problem Malignant neoplasm of brain, unspecified site 191.9 Active 702499107 Problem Dermatophytosis of groin and perianal area 110.3 Active 046229979 Problem Neoplasm of unspecified nature of brain 239.6 Active 842883513 Problem Benign neoplasm of bone and articular cartilage, 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
--- OUTSIDE RECORDS SUMMARY | 2018-02-24 06:44 | XMS REPORT ---
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 Active Problem Malignant neoplasm of brain, unspecified site 191.9 Active Problem Neoplasm of unspecified nature of brain 239.6 Active Problem Calculus of kidney 592.0 Active Problem Impacted cerumen 380.4 Active Problem Dermatophytosis of groin and perianal area 110.3 Active Problem Hematuria, unspecified 599.70 Active Assessment Visit for suture removal V58.32 Active Problem Acute suppurative otitis media without spontaneous rupture of eardrum 382.00 Active Problem Benign neoplasm of bone and articular cartilage, 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 Active Problem Other specified cardiac dysrhythmias 427.89 Active Problem Dysfunction of Eustachian tube 381.81 Active Problem Other bilateral bundle branch block 426.53 Active Problem Regional enteritis of unspecified site 555.9 Active Problem Calculus of ureter 592.1 Active Medications No Known Medications Procedures Procedure Coding System Code Date Office Visit, Est Pt., Level 3 CPT-4 79025 Jan 11, 2015 REMOV SUTS; NOT WHO CLOS WND CPT-4 S0630 Jan 11, 2015 Vital Signs Date/Time: Jan 11, 2015 Temperature 98.5 F Weight 222.4 lbs Height 74 in BMI 28.55 Index Blood Pressure Diastolic 70 mmHg Blood Pressure Systolic 110 mmHg Cardiac Monitoring Heart Rate 60 bpm Results Name Result Date Reference Range Unit Abnormality Flag SUTURE REMOVAL Summary Purpose [employer] Submission
--- OUTSIDE RECORDS SUMMARY | 2018-02-24 06:44 | XMS REPORT ---
Author TARAN Zambrano [facility] [employer] Address Unknown Phone Unavailable Care Team Providers Care Linux Architect Name Role Phone TARAN RAMIREZ CP Unavailable Allergies, Adverse Reactions, Alerts Substance Reaction Event Type Aspirin crohns Drug Allergy Problems Problem Type Condition Code Onset Dates Condition Status Problem Hematuria, unspecified 599.70 Active Problem Malignant neoplasm of brain, unspecified site 191.9 Active Problem Dermatophytosis of groin and perianal area 110.3 Active Problem Cardiac arrhythmia, unspecified cardiac arrhythmia type I49.9 Active Problem Dysfunction of Eustachian tube 381.81 Active Problem Tobacco abuse Z72.0 Active Problem Acute suppurative otitis media without spontaneous rupture of eardrum 382.00 Active Assessment Cellulitis of head except face L03.811 Active Problem Foot pain, left M79.672 Active Problem Neoplasm of unspecified nature of brain 239.6 Active Problem 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 Active Problem Tobacco abuse counseling Z71.6 Active Problem Crohn's disease, unspecified, with other complication K50.918 Active Problem Other specified cardiac dysrhythmias 427.89 Active Problem Other bilateral bundle branch block 426.53 Active Problem Regional enteritis of unspecified site 555.9 Active Problem Benign neoplasm of bone and articular cartilage, 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 Active Problem Fever, unspecified 780.60 Active Problem Acute sinusitis, unspecified 461.9 Active Problem Calculus of ureter 592.1 Active Problem Impacted cerumen 380.4 Active Problem Unspecified psychosis 298.9 Active Problem Calculus of kidney 592.0 Active Medications Medication Code System Code Instructions Start Date End Date Status Dosage Cephalexin [facility] [address]-17 500 MG Orally 3 times a day Mar 17, 2016 Mar 24, 2016 1 capsule Chantix Starting Month Albino [facility] [address]-70 0.5 MG X 11 & 1 MG X 42 Orally October 25, 2015 as directed Tamsulosin HCl [facility] [address]-62 0.4 MG Orally Once a day 1 capsule 30 minutes after the same meal each day Procedures Procedure Coding System Code Date Office Visit, Est Pt., Level 3 CPT-4 45241 Mar 17, 2016 Vital Signs Date/Time: Mar 17, 2016 Cardiac Monitoring Heart Rate 62 bpm Weight 230.4 lbs Height 74 in BMI 29.58 Index Blood Pressure Diastolic 87 mmHg Blood Pressure Systolic 123 mmHg Results No Known Results Summary Purpose [employer] Submission
--- OUTSIDE RECORDS SUMMARY | 2018-02-24 06:44 | XMS REPORT ---
Author Author OTIS KEMP [facility] [employer] Address Unknown Phone Unavailable Care Team Providers Care Pari Mutuel Ticket Seller Name Role Phone OTIS KEMP CP Unavailable Allergies, Adverse Reactions, Alerts Substance Reaction Event Type Aspirin crohns Drug Allergy Problems Problem Type Condition Code Onset Dates Condition Status Assessment Crohn's disease, unspecified, with other complication K50.918 Active Assessment Tobacco abuse counseling Z71.6 Active Problem Impacted cerumen 380.4 Active Assessment Tobacco abuse Z72.0 Active Problem Calculus of kidney 592.0 Active Assessment Cardiac arrhythmia, unspecified cardiac arrhythmia type I49.9 Active Problem Hematuria, unspecified 599.70 Active Problem Malignant neoplasm of brain, unspecified site 191.9 Active Problem Dermatophytosis of groin and perianal area 110.3 Active Problem Cardiac arrhythmia, unspecified cardiac arrhythmia type I49.9 Active Problem Tobacco abuse Z72.0 Active Problem Dysfunction of Eustachian tube 381.81 Active Problem Acute suppurative otitis media without spontaneous rupture of eardrum 382.00 Active Problem Foot pain, left M79.672 Active Assessment Foot pain, left M79.672 Active Problem Neoplasm [...] Problem Calculus of ureter 592.1 Active Problem Unspecified psychosis 298.9 Active Medications Medication Code System Code Instructions Start Date End Date Status Dosage Chantix Starting Month [facility] [address]-09 0.5 MG X 11 & 1 MG X 42 Orally October 25, 2015 as directed Tamsulosin HCl [facility] [address]-06 0.4 MG Orally Once a day 1 capsule 30 minutes after the same meal each day Procedures Procedure Coding System Code Date Office Visit, Est Pt., Level 3 CPT-4 35762 October 25, 2015 ASSAY OF BLOOD/URIC ACID CPT-4 35726 October 25, 2015 X-RAY EXAM OF FOOT CPT-4 76127 October 25, 2015 VENIPUNCT, ROUTINE* CPT-4 60823 October 25, 2015 Vital Signs Date/Time: October 25, 2015 Cardiac Monitoring Heart Rate 78 bpm Weight 229.2 lbs Height 74 in Blood Pressure Diastolic 76 mmHg Blood Pressure Systolic 134 mmHg Results No Known Results Summary Purpose [employer] Submission
--- OUTSIDE RECORDS SUMMARY | 2018-02-24 06:44 | XMS REPORT ---
Author [facility]P [facility] Address [address] [place] [address] Care Team Providers Care Log Deckman Name Role Phone OTIS KEMP Unavailable PROBLEMS Type Condition ICD9-CM Code [id number] Code Onset Dates Condition Status SNOMED Code Problem Fever, unspecified 780.60 Active 356099932 Problem Hematuria, unspecified 599.70 Active 03216781 Problem Calculus of ureter 592.1 Active 25145298 Problem Calculus of kidney 592.0 Active 19049499 Problem Regional enteritis of unspecified site 555.9 Active 60963269 Problem Acute sinusitis, unspecified 461.9 Active 12548066 Problem Tobacco abuse counseling Z71.6 Active 518824573 Problem Other specified cardiac dysrhythmias 427.89 Active 832349688 Problem Foot pain, left M79.672 Active 53696589 Problem Other bilateral bundle branch block 426.53 Active 00554947 Problem Crohn's disease, unspecified, with other complication K50.918 Active 37127293 Problem Hyperparathyroidism E21.3 Active 44820772 Problem Hypercalcemia E83.52 Active 92354547 Problem Cochlear implant in place Z96.21 Active 770658612 Problem Cellulitis of head except face L03.811 Active 859164583 Problem Impacted cerumen 380.4 Active 74344732 Problem Dysfunction of Eustachian tube 381.81 Active 98313849 Problem Acute suppurative otitis media without spontaneous rupture of eardrum 382.00 Active 70156363 Problem 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 Active 61345721 Problem Cellulitis of neck L03.221 Active 97885906 Problem Major depressive disorder, single episode, unspecified F32.9 Active 33227862 Problem Hypocalcemia E83.51 Active 3223929 Problem Neoplasm of unspecified nature of brain 239.6 Active 717770733 Problem Benign neoplasm of bone and articular cartilage, 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 Active 68926638 Problem 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 Active 69984389 Problem Unspecified psychosis 298.9 Active 84038396 Problem Cardiac arrhythmia, unspecified cardiac arrhythmia type I49.9 Active 83329584 Problem Tobacco abuse Z72.0 Active 127246608 Problem Malignant neoplasm of brain, unspecified site 191.9 Active 399002589 Problem Dermatophytosis of groin and perianal area 110.3 Active 773245864 ALLERGIES No Information SOCIAL HISTORY Never Assessed PLAN OF CARE VITAL SIGNS MEDICATIONS Medication Instructions Dosage Frequency Start Date End Date Duration Status Synthroid 25 MCG Orally Once a day 1 tablet on an empty stomach in the morning 24h Active RESULTS No Results PROCEDURES No Known [...]
--- OUTSIDE RECORDS SUMMARY | 2018-02-24 06:44 | XMS REPORT ---
Author Author [facility] Address [address] [place] [address] Care Team Providers Care [employer] Teacher Name Role Phone OTIS KEMP Unavailable PROBLEMS Type Condition ICD9-CM Code [id number] Code Onset Dates Condition Status SNOMED Code Problem Fever, unspecified 780.60 Active 501820626 Problem Hematuria, unspecified 599.70 Active 59373807 Problem Calculus of ureter 592.1 Active 72647050 Problem Calculus of kidney 592.0 Active 37697128 Problem Regional enteritis of unspecified site 555.9 Active 33660986 Problem Acute sinusitis, unspecified 461.9 Active 32545264 Problem Tobacco abuse counseling Z71.6 Active 647040042 Problem Other specified cardiac dysrhythmias 427.89 Active 915983955 Problem Foot pain, left M79.672 Active 48595763 Problem Other bilateral bundle branch block 426.53 Active 36740581 Problem Crohn's disease, unspecified, with other complication K50.918 Active 54408594 Problem Hyperparathyroidism E21.3 Active 34133789 Problem Hypercalcemia E83.52 Active 35768687 Problem Cochlear implant in place Z96.21 Active 854999168 Problem Cellulitis of head except face L03.811 Active 420006068 Problem Impacted cerumen 380.4 Active 86528677 Problem Dysfunction of Eustachian tube 381.81 Active 68058594 Problem Acute suppurative otitis media without spontaneous rupture of eardrum 382.00 Active 43651895 Problem 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 Active 83031973 Problem Cellulitis of neck L03.221 Active 84963857 Problem Major depressive disorder, single episode, unspecified F32.9 Active 76845540 Problem Hypocalcemia E83.51 Active 5702092 Problem Neoplasm of unspecified nature of brain 239.6 Active 315983165 Problem Benign neoplasm of bone and articular cartilage, 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 Active 34253728 Problem 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 Active 24577808 Problem Unspecified psychosis 298.9 Active 53689068 Problem Cardiac arrhythmia, unspecified cardiac arrhythmia type I49.9 Active 26385806 Problem Tobacco abuse Z72.0 Active 488549011 Problem Malignant neoplasm of brain, unspecified site 191.9 Active 356345665 Problem Dermatophytosis of groin and perianal area 110.3 Active 214599264 ALLERGIES No Information ENCOUNTERS Encounter Location Date Diagnosis [facility] [place] [address] [place] [address] [address] [id number] [place] [id number] May, Hyperparathyroidism E21.[address] [facility] [place] [address] [place] [address] [address] [id number] [place] [id number] Mar, Hyperparathyroidism E21.3 ; Hypocalcemia E83.51 and Major depressive disorder, single episode, unspecified F32.9 [facility] [place] [address] [place] [address] [address] [id number] [place] [id number] Mar, Cellulitis of head except face L03.811 and Cochlear implant in place Z96.21 [facility] [place] [address] [place] [address] [address] [id number] [place] [id number] Feb, [facility] [place] [address] [place] [address] [address] [id number] [place] [id number] Feb, 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 [facility] [place] [address] [place] [address] [address] [id number] [place] [id number] Nov, Hyperparathyroidism E21.3 [facility] [place] [address] [place] [address] [address] [id number] [place] [id number] Oct, Hyperparathyroidism E21.3 [facility] [place] [address] [place] [address] [address] [id number] [place] [id number] Oct, [facility] [place] [address] [place] [address] [address] [id number] [place] [id number] Oct, [facility] [place] [address] [place] [address] [address] [id number] [place] [id number] Oct, [facility] [place] [address] [place] [address] [address] [id number] [place] [id number] Oct, [facility] [address] [facility] [id number] [place] [address] Oct, [facility] [place] [address] [facility] [address] [id number] [place] [id number] September, 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 [facility] [place] [address] [place] [address] C [id number] [place] [id number] September, Hypocalcemia E83.51 ; 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 and Major depressive disorder, single episode, unspecified F32.9 [facility] [place] [address] [place] [address] [address] [id number] [place] [id number] September, Suicidal ideation R45.851 [facility] [place] [address] [place] [address] C [id number] [place] [id number] Aug, Hypocalcemia E83.51 [facility] [place] [address] [place] [address] [address] [id number] [place] [id number] Jul, 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 [facility] [place] [address] [place] [address] [address] [id number] [place] [id number] Jul, Hypercalcemia E83.52 [facility] [place] [address] [place] [address] C [id number] [place] [id number] Jul, Cellulitis of neck L03.221 [facility] [place] [address] [place] [address] C [id number] [place] [id number] Jul, Cellulitis of other specified site L03.818 and Infected incision, initial encounter T81.4XXA [facility] [place] [address] [place] [address] [address] [id number] [place] [id number] Jun, Hypercalcemia E83.52 [facility] [place] [address] [place] [address] C [id number] [place] [id number] Apr, Hypercalcemia E83.52 and Hyperparathyroidism E21.3 [facility] [place] [address] [place] [address] C [id number] [place] [id number] Apr, Hypercalcemia E83.52 [facility] [place] [address] [place] [address] C [id number] [place] [id number] Apr, Cardiac arrhythmia, unspecified cardiac arrhythmia type I49.9 and Pre-op evaluation Z01.818 [facility] [place] [address] [facility] [address] [id number] [place] [id number] Feb, Cellulitis of head except face L03.811 [facility] [place] [address] [facility] [address] [id number] [place] [id number] Oct, [facility] [place] [address] [facility] [address] [id number] [place] [id number] Oct, Foot pain, left M79.672 ; Cardiac arrhythmia, unspecified cardiac arrhythmia type I49.9 ; Tobacco abuse Z72.0 ; Tobacco abuse counseling Z71.6 and Crohn's disease, unspecified, with other complication K50.918 [facility] [place] [address] [facility] [address] [id number] [place] [id number] Oct, Screening PSA (prostate specific antigen) Z12.5 [facility] [place] [address] [place] [address] [address] [id number] [place] [id number] Mar, Otitis externa of right ear H60.91 and Otitis media, right H66.91 [facility] [place] [address] [place] [address] [address] [id number] [place] [id number] Dec, Visit for suture removal V58.32 [facility] [address] [address] Aug, [facility] [address] [id number] [address] Aug, [facility] [place] [address] [place] [address] [address] [id number] [place] [id number] Jun, [facility] [address] [facility] [id number], [place] [address] Jun, [facility] [place] [address] [place] [address] [address] [id number] [place] [id number] Mar, [facility] [address] [address] Mar, [facility] [place] [address] [facility] [address] [id number] [place] [id number] Jan, [facility] [place] [facility] [address] [id number] [place] [address] Jan, [facility] [place] [address] [id number] [place] [id number] Jan, [facility] [place] [facility] [address] [id number] [place] [address] Jan, [facility] [place] [facility] [address] [id number] [place] [address] Jan, [facility] [place] [facility] [address] [id number] [place] [address] Dec, [facility] [place] [address] [id number] [place] [id number] Dec, [facility] [place] [address] [id number] [place] [id number] Dec, [facility] [place] [facility] [address] [id number] [place] [address] Dec, [facility] [place] [address] [id number] [place] [id number] Nov, [facility] [place] [facility] [address] [id number] [place] [address] Nov, [facility] [place] [facility] [address] [id number] [place] [address] Oct, [facility] [place] [address] [id number] [place] [id number] Oct, [facility] [place] [address] [id number] [place] [id number] Oct, [facility] [place] [facility] [address] [id number] [place] [address] Oct, [facility] [place] [address] [id number] [place] [id number] September, [facility] [place] [facility] [address] [id number] [place] [address] September, [facility] [place] [address] [id number] [place] [id number] Aug, [facility] [place] [address] [facility] [address] [id number] [place] [id number] Aug, [facility] [address] [facility] [id number] [facility] [place] [address] Aug, [facility] [address] [facility] [id number] [place] [address] Aug, [facility] [place] [address] [facility] [address] [id number] [place] [id number] Aug, [facility] [address] [facility] [id number] [place] [address] Aug, [facility] [place] [address] [facility] [address] [id number] [place] [id number] May, [facility] [address] [facility] [id number] [facility] [place] [address] May, [facility] [place] [address] [facility] [address] [id number] [place] [id number] Apr, [facility] [address] [facility] [id number] [place] [address] Apr, [facility] [place] [address] [facility] [address] [id number] [place] [id number] Feb, [facility] [address] [facility] [id number] [facility] [place] [address] Feb, [facility] [address] [facility] [id number] [facility] [place] [address] Jan, [facility] [address] [facility] [id number] [place] [address] Dec, [facility] [place] [address] [facility] [address] [id number] [place] [id number] Dec, [facility] [place] [address] [facility] [address] [id number] [place] [id number] Dec, IMMUNIZATIONS No Known Immunizations SOCIAL HISTORY Never Assessed REASON FOR VISIT labs ordered by dr quiñones via randy Richardson RN PLAN OF CARE VITAL SIGNS MEDICATIONS Medication Instructions Dosage Frequency Start Date End Date Duration Status Lortab 5 500-5 MG Orally every 6 hrs 1 tablet as needed 6h Not- Taking Bactroban 2 % Externally Three times a day 1 application to affected area 8h Jul, Not-Taking Tums 500 mg Orally Four times a day 2 tablets 6h Not-Taking Tamsulosin HCl 0.4 1 tab daily Active Tamsulosin HCl 0.4 MG Orally Once a day 1 capsule 30 minutes after the same meal each day 24h Active Prozac 10 MG Orally Once a day 1 capsule in the morning 24h Active Calcitriol 0.5 MCG Orally Twice a day 1 capsule 12h Active Augmentin 875-125 MG Orally every 12 hrs 1 tablet 12h Active Synthroid 25 MCG Orally Once a day 1 tablet on an empty stomach in the morning 24h Active RESULTS Name Result Date Reference Range TSH 2017-03-08 TSH 0.13 0.40-4.50 PROCEDURES Procedure Date Ordered Result Body Site ROUTINE VENIPUNCTURE 2017-03-08 N/A ASSAY THYROID STIM HORMONE Mar 08, 2017 INSTRUCTIONS MEDICATIONS ADMINISTERED No Known Medications [...]
--- OUTSIDE RECORDS SUMMARY | 2018-02-24 06:44 | XMS REPORT ---
Author Author [facility]EMP [facility] Address [address] [place] [address] Care Team Providers Care Clinical Specialty Rep Name Role Phone OTIS KEMP Unavailable PROBLEMS Type Condition ICD9-CM Code KUG70-KM Code Onset Dates Condition Status SNOMED Code Problem Fever, unspecified 780.60 Active 159721218 Problem Hematuria, unspecified 599.70 Active 59502511 Problem Calculus of ureter 592.1 Active 61066949 Problem Calculus of kidney 592.0 Active 78474846 Problem Tobacco abuse Z72.0 Active 168351018 Problem Regional enteritis of unspecified site 555.9 Active 75002273 Problem Tobacco abuse counseling Z71.6 Active 626398864 Problem Acute sinusitis, unspecified 461.9 Active 84704398 Problem Cardiac arrhythmia, unspecified cardiac arrhythmia type I49.9 Active 53223846 Problem Crohn's disease, unspecified, with other complication K50.918 Active 14212729 Problem Foot pain, left M79.672 Active 94502604 Problem Major depressive disorder, single episode, unspecified F32.9 Active 43379489 Problem Hypocalcemia E83.51 Active 6279855 Problem Acute suppurative otitis media without spontaneous rupture of eardrum 382.00 Active 50895685 Problem Other bilateral bundle branch block 426.53 Active 07380403 Problem Other specified cardiac dysrhythmias 427.89 Active 556297965 Problem Hyperparathyroidism E21.3 Active 53234006 Problem Hypercalcemia E83.52 Active 60153981 Problem 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 Active 40220609 Problem Cellulitis of neck L03.221 Active 01793840 Problem 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 Active 11022308 Problem Unspecified psychosis 298.9 Active 04303739 Problem Dysfunction of Eustachian tube 381.81 Active 77209849 Problem Impacted cerumen 380.4 Active 35805342 Problem Malignant neoplasm of brain, unspecified site 191.9 Active 833605501 Problem Dermatophytosis of groin and perianal area 110.3 Active 196237370 Problem Neoplasm of unspecified nature of brain 239.6 Active 768366056 Problem Benign neoplasm of bone and articular cartilage, 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
--- OUTSIDE RECORDS SUMMARY | 2018-02-24 06:45 | XMS REPORT ---
Author Author OTIS KEMP [facility] Address [address] [place] [address] Care Team Providers Care Chopper Feeder Name Role Phone OTIS KEMP Unavailable PROBLEMS Type Condition ICD9-CM Code EPI02-SU Code Onset Dates Condition Status SNOMED Code Problem Fever, unspecified 780.60 Active 420432569 Problem Hematuria, unspecified 599.70 Active 58322968 Problem Calculus of ureter 592.1 Active 37055911 Problem Calculus of kidney 592.0 Active 95513137 Problem Regional enteritis of unspecified site 555.9 Active 46628544 Problem Acute sinusitis, unspecified 461.9 Active 50650342 Problem Tobacco abuse counseling Z71.6 Active 163720284 Problem Other specified cardiac dysrhythmias 427.89 Active 518724637 Problem Foot pain, left M79.672 Active 62732266 Problem Other bilateral bundle branch block 426.53 Active 70585946 Problem Crohn's disease, unspecified, with other complication K50.918 Active 65141552 Problem Hyperparathyroidism E21.3 Active 48921488 Problem Hypercalcemia E83.52 Active 10019401 Problem Cochlear implant in place Z96.21 Active 390330831 Problem Cellulitis of head except face L03.811 Active 377072854 Problem Impacted cerumen 380.4 Active 45262659 Problem Dysfunction of Eustachian tube 381.81 Active 02578926 Problem Acute suppurative otitis media without spontaneous rupture of eardrum 382.00 Active 55653409 Problem 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 Active 91719970 Problem Cellulitis of neck L03.221 Active 51236103 Problem Major depressive disorder, single episode, unspecified F32.9 Active 74859730 Problem Hypocalcemia E83.51 Active 8725604 Problem Neoplasm of unspecified nature of brain 239.6 Active 995941968 Problem Benign neoplasm of bone and articular cartilage, 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 Active 26778825 Problem 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 Active 72630073 Problem Unspecified psychosis 298.9 Active 18771754 Problem Cardiac arrhythmia, unspecified cardiac arrhythmia type I49.9 Active 75318801 Problem Tobacco abuse Z72.0 Active 114836737 Problem Malignant neoplasm of brain, unspecified site 191.9 Active 800661180 Problem Dermatophytosis of groin and perianal area 110.3 Active 490795634 ALLERGIES No Information ENCOUNTERS Encounter Location Date Diagnosis [facility] [place] [address] [place] [address] [address] [id number] [place] [id number] May, Hyperparathyroidism E21.3 [facility] [place] [address] [place] [address] [address] [id number] [place] [id number] Mar, Hyperparathyroidism E21.3 ; Hypocalcemia E83.51 and Major depressive disorder, single episode, unspecified F32.9 [facility] [place] [address] [place] [address] C [id number] [place] [id number] Mar, Cellulitis of head except face L03.811 and [address] implant in place Z96.21 [facility] [place] [address] [place] [address] [address] [id number] [place] [id number] Feb, [facility] [place] [address] [place] [address] [address] [id number] [place] [id number] Feb, 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 [facility] [place] [address] [place] [address] [address] [id number] [place] [id number] Nov, Hyperparathyroidism E21.3 [facility] [place] [address] [place] [address] C [id number] [place] [id number] Oct, Hyperparathyroidism E21.3 [facility] [place] [address] [place] [address] [address] [id number] [place] [id number] Oct, [facility] [place] [address] [place] [address] [address] [id number] [place] [id number] Oct, [facility] [place] [address] [place] [address] [address] [id number] [place] [id number] Oct, [facility] [place] [address] [place] [address] [address] [id number] [place] [id number] Oct, [facility] [address] [facility] [id number] [place] [address] Oct, [facility] [place] [address] [facility] C [id number] [place] [id number] September, 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 [facility] [place] [address] [place] [address] C [id number] [place] [id number] September, Hypocalcemia E83.51 ; 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 and Major depressive disorder, single episode, unspecified F32.9 [facility] [place] [address] [place] [address] [address] [id number] [place] [id number] September, Suicidal ideation R45.851 [facility] [place] [address] [place] [address] C [id number] [place] [id number] Aug, Hypocalcemia E83.51 [facility] [place] [address] [place] [address] C [id number] [place] [id number] Jul, 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 [facility] [place] [address] [place] [address] [address] [id number] [place] [id number] Jul, Hypercalcemia E83.52 [facility] [place] [address] [place] [address] C [id number] [place] [id number] Jul, Cellulitis of neck L03.221 [facility] [place] [address] [place] [address] C [id number] [place] [id number] Jul, Cellulitis of other specified site L03.818 and Infected incision, initial encounter T81.4XXA [facility] [place] [address] [place] [address] [address] [id number] [place] [id number] Jun, Hypercalcemia E83.52 [facility] [place] [address] [place] [address] C [id number] [place] [id number] Apr, Hypercalcemia E83.52 and Hyperparathyroidism E21.3 [facility] [place] [address] [place] [address] C [id number] [place] [id number] Apr, Hypercalcemia E83.52 [facility] [place] [address] [place] [address] C [id number] [place] [id number] Apr, Cardiac arrhythmia, unspecified cardiac arrhythmia type I49.9 and Pre-op evaluation Z01.818 [facility] [place] [address] [facility] [address] [id number] [place] [id number] Feb, Cellulitis of head except face L03.811 [facility] [place] [address] [facility] [address] [id number] [place] [id number] Oct, [facility] [place] [address] [facility] [address] [id number] [place] [id number] Oct, Foot pain, left M79.672 ; Cardiac arrhythmia, unspecified cardiac arrhythmia type I49.9 ; Tobacco abuse Z72.0 ; Tobacco abuse counseling Z71.6 and Crohn's disease, unspecified, with other complication K50.918 [facility] [place] [address] [facility] [address] [id number] [place] [id number] Oct, Screening PSA (prostate specific antigen) Z12.5 [facility] [place] [address] [place] [address] [address] [id number] [place] [id number] Mar, Otitis externa of right ear H60.91 and Otitis media, right H66.91 [facility] [place] [address] [place] [address] [address] [id number] [place] [id number] Dec, Visit for suture removal V58.32 [facility] [address] [address] Aug, [facility] [address] [id number] [address] Aug, [facility] [place] [address] [place] [address] [address] [id number] [place] [id number] Jun, [facility] [address] [facility] [id number] [address] Jun, [facility] [place] [address] [place] [address] [address] [id number] [place] [id number] Mar, [facility] [address] [address] Mar, [facility] [place] [address] [facility] [address] [id number] [place] [id number] Jan, [facility] [place] [facility] [address] [id number] [place] [address] Jan, [facility] [place] [address] [id number] [place] [id number] Jan, [facility] [place] [facility] [address] [id number] [place] [address] Jan, [facility] [place] [facility] [address] [id number] [place] [address] Jan, [facility] [place] [facility] [address] [id number] [place] [address] Dec, [facility] [place] [address] [id number] [place] [id number] Dec, [facility] [place] [address] [id number] [place] [id number] Dec, [facility] [place] [facility] [address] [id number] [place] [address] Dec, [facility] [place] [address] [id number] [place] [id number] Nov, [facility] [place] [facility] [address] [id number] [place] [address] Nov, [facility] [place] [facility] [address] [id number] [place] [address] Oct, [facility] [place] [address] [id number] [place] [id number] Oct, [facility] [place] [address] [id number] [place] [id number] Oct, [facility] [place] [facility] [address] [id number] [place] [address] Oct, [facility] [place] [address] [id number] [place] [id number] September, [facility] [place] [facility] [address] [id number] [place] [address] September, [facility] [place] [address] [id number] [place] [id number] Aug, [facility] [place] [address] [facility] [address] [id number] [place] [id number] Aug, [facility] [place] [facility] [address] [facility] [id number] [place] [address] Aug, [facility] [address] [facility] [id number] [place] [address] Aug, [facility] [place] [address] [facility] [address] [id number] [place] [id number] Aug, [facility] [address] [facility] [id number] [place] [address] Aug, [facility] [place] [address] [facility] [address] [id number] [place] [id number] May, [facility] [address] [facility] [id number] [place] [address] May, [facility] [place] [address] [facility] [address] [id number] [place] [id number] Apr, [facility] [address] [facility] [id number] [place] [address] Apr, [facility] [place] [address] [facility] [address] [id number] [place] [id number] Feb, [facility] [address] [facility] [id number] [place] [address] Feb, [facility] [address] [facility] [id number] [place] [address] Jan, [facility] [address] [facility] [id number] [place] [address] Dec, [facility] [place] [address] [facility] [address] [id number] [place] [id number] Dec, [facility] [place] [address] [facility] [address] [id number] [place] [id number] Dec, IMMUNIZATIONS No Known Immunizations SOCIAL HISTORY Never Assessed REASON FOR VISIT labs, Dian Dylan RN PLAN OF CARE Activity Details Follow Up prn Reason: VITAL SIGNS MEDICATIONS Unknown Medications RESULTS No Results PROCEDURES Procedure Date Ordered Result Body Site ROUTINE VENIPUNCTURE 2016-10-17 N/A ASSAY THYROID STIM HORMONE October 17, 2016 FREE ASSAY (FT-3) October 17, 2016 ASSAY OF FREE THYROXINE October 17, 2016 ASSAY OF PARATHORMONE October 17, 2016 ASSAY OF CALCIUM October 17, 2016 INSTRUCTIONS MEDICATIONS ADMINISTERED No Known Medications [...]
--- OUTSIDE RECORDS SUMMARY | 2018-02-24 06:45 | XMS REPORT ---
Author Author [facility]P [facility] Address [address] [place] [address] Care Team Providers Care Sheet Rock Layer Name Role Phone OTIS KEMP Unavailable PROBLEMS Type Condition ICD9-CM Code [id number] Code Onset Dates Condition Status SNOMED Code Problem Fever, unspecified 780.60 Active 070919150 Problem Hematuria, unspecified 599.70 Active 86846593 Problem Calculus of ureter 592.1 Active 40791066 Problem Calculus of kidney 592.0 Active 18146960 Problem Regional enteritis of unspecified site 555.9 Active 01867776 Problem Acute sinusitis, unspecified 461.9 Active 94835723 Problem Tobacco abuse counseling Z71.6 Active 556311726 Problem Other specified cardiac dysrhythmias 427.89 Active 072132313 Problem Foot pain, left M79.672 Active 63915612 Problem Other bilateral bundle branch block 426.53 Active 35571761 Problem Crohn's disease, unspecified, with other complication K50.918 Active 28483613 Problem Hyperparathyroidism E21.3 Active 50120158 Problem Hypercalcemia E83.52 Active 72959984 Problem Cochlear implant in place Z96.21 Active 552763377 Problem Cellulitis of head except face L03.811 Active 540101157 Problem Impacted cerumen 380.4 Active 22438095 Problem Dysfunction of Eustachian tube 381.81 Active 14705306 Problem Acute suppurative otitis media without spontaneous rupture of eardrum 382.00 Active 92807698 Problem 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 Active 00956021 Problem Cellulitis of neck L03.221 Active 90085757 Problem Major depressive disorder, single episode, unspecified F32.9 Active 16170593 Problem Hypocalcemia E83.51 Active 8864853 Problem Neoplasm of unspecified nature of brain 239.6 Active 326866735 Problem Benign neoplasm of bone and articular cartilage, 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
--- OUTSIDE RECORDS SUMMARY | 2018-02-24 06:45 | XMS REPORT ---
Author Author [facility] Address [address] [place] [address] Care Team Providers Care Assembly Room Supervisor Name Role Phone OTIS KEMP Unavailable PROBLEMS Type Condition ICD9-CM Code PWL16-DE Code Onset Dates Condition Status SNOMED Code Problem Fever, unspecified 780.60 Active 745773729 Problem Hematuria, unspecified 599.70 Active 04120352 Problem Calculus of ureter 592.1 Active 40738882 Problem Calculus of kidney 592.0 Active 42407383 Problem Regional enteritis of unspecified site 555.9 Active 49265943 Problem Acute sinusitis, unspecified 461.9 Active 94706973 Problem Tobacco abuse counseling Z71.6 Active 792869952 Problem Other specified cardiac dysrhythmias 427.89 Active 873828516 Problem Foot pain, left M79.672 Active 30535325 Problem Other bilateral bundle branch block 426.53 Active 40269042 Problem Crohn's disease, unspecified, with other complication K50.918 Active 72773876 Problem Hyperparathyroidism E21.3 Active 26169709 Problem Hypercalcemia E83.52 Active 09093933 Problem Cochlear implant in place Z96.21 Active 803969297 Problem Cellulitis of head except face L03.811 Active 839004864 Problem Impacted cerumen 380.4 Active 08015599 Problem Dysfunction of Eustachian tube 381.81 Active 56391806 Problem Acute suppurative otitis media without spontaneous rupture of eardrum 382.00 Active 61813590 Problem 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 Active 37535697 Problem Cellulitis of neck L03.221 Active 08255877 Problem Major depressive disorder, single episode, unspecified F32.9 Active 68908409 Problem Hypocalcemia E83.51 Active 9207949 Problem Neoplasm of unspecified nature of brain 239.6 Active 365156644 Problem Benign neoplasm of bone and articular cartilage, 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 Active 76479872 Problem 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 Active 78037453 Problem Unspecified psychosis 298.9 Active 72186099 Problem Cardiac arrhythmia, unspecified cardiac arrhythmia type I49.9 Active 92825201 Problem Tobacco abuse Z72.0 Active 055666835 Problem Malignant neoplasm of brain, unspecified site 191.9 Active 358832496 Problem Dermatophytosis of groin and perianal area 110.3 Active 594950428 ALLERGIES No Information ENCOUNTERS Encounter Location Date Diagnosis [facility] [place] [address] [place] [address] [address] [id number] [place] [id number] May, Hyperparathyroidism E21.3 [facility] [place] [address] [place] [address] [address] [id number] [place] [id number] Mar, Hyperparathyroidism E21.3 ; Hypocalcemia E83.51 and Major depressive disorder, single episode, unspecified F32.9 [facility] [place] [address] [place] [address] C [id number] [place] [id number] Mar, Cellulitis of head except face L03.811 and [address] implant in place Z96.21 [facility] [place] [address] [place] [address] [address] [id number] [place] [id number] Feb, [facility] [place] [address] [place] [address] [address] [id number] [place] [id number] Feb, 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 [facility] [place] [address] [place] [address] [address] [id number] [place] [id number] Nov, Hyperparathyroidism E21.[address] [facility] [place] [address] [place] [address] C [id number] [place] [id number] Oct, Hyperparathyroidism E21.3 [facility] [place] [address] [place] [address] [address] [id number] [place] [id number] Oct, [facility] [place] [address] [place] [address] [address] [id number] [place] [id number] Oct, [facility] [place] [address] [place] [address] [address] [id number] [place] [id number] Oct, [facility] [place] [address] [place] [address] [address] [id number] [place] [id number] Oct, [facility] [address] [facility] [id number] [place] [address] Oct, [facility] [place] [address] [facility] [address] [id number] [place] [id number] September, 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 [facility] [place] [address] [place] [address] C [id number] [place] [id number] September, Hypocalcemia E83.51 ; 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 and Major depressive disorder, single episode, unspecified F32.9 [facility] [place] [address] [place] [address] [address] [id number] [place] [id number] September, Suicidal ideation R45.851 [facility] [place] [address] [place] [address] C [id number] [place] [id number] Aug, Hypocalcemia E83.51 [facility] [place] [address] [place] [address] C [id number] [place] [id number] Jul, 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 [facility] [place] [address] [place] [address] [address] [id number] [place] [id number] Jul, Hypercalcemia E83.52 [facility] [place] [address] [place] [address] C [id number] [place] [id number] Jul, Cellulitis of neck L03.221 [facility] [place] [address] [place] [address] C [id number] [place] [id number] Jul, Cellulitis of other specified site L03.818 and Infected incision, initial encounter T81.4XXA [facility] [place] [address] [place] [address] [address] [id number] [place] [id number] Jun, Hypercalcemia E83.52 [facility] [place] [address] [place] [address] C [id number] [place] [id number] Apr, Hypercalcemia E83.52 and Hyperparathyroidism E21.3 [facility] [place] [address] [place] [address] C [id number] [place] [id number] Apr, Hypercalcemia E83.52 [facility] [place] [address] [place] [address] C [id number] [place] [id number] Apr, Cardiac arrhythmia, unspecified cardiac arrhythmia type I49.9 and Pre-op evaluation Z01.818 [facility] [place] [address] [facility] [address] [id number] [place] [id number] Feb, Cellulitis of head except face L03.811 [facility] [place] [address] [facility] [address] [id number] [place] [id number] Oct, [facility] [place] [address] [facility] [address] [id number] [place] [id number] Oct, Foot pain, left M79.672 ; Cardiac arrhythmia, unspecified cardiac arrhythmia type I49.9 ; Tobacco abuse Z72.0 ; Tobacco abuse counseling Z71.6 and Crohn's disease, unspecified, with other complication K50.918 [facility] [place] [address] [facility] [address] [id number] [place] [id number] Oct, Screening PSA (prostate specific antigen) Z12.5 [facility] [place] [address] [place] [address] [address] [id number] [place] [id number] Mar, Otitis externa of right ear H60.91 and Otitis media, right H66.91 [facility] [place] [address] [place] [address] [address] [id number] [place] [id number] Dec, Visit for suture removal V58.32 [facility] [address], [place] [address] Aug, [facility] [address] [id number] [address] Aug, [facility] [place] [address] [place] [address] [address] [id number] [place] [id number] Jun, [facility] [address] [facility] [id number], [place] [address] Jun, [facility] [place] [address] [place] [address] [address] [id number] [place] [id number] Mar, [facility] [address], [place] [address] Mar, [facility] [place] [address] [facility] [address] [id number] [place] [id number] Jan, [facility] [place] [facility] [address] [id number] [place] [address] Jan, [facility] [place] [address] [id number] [place] [id number] Jan, [facility] [place] [facility] [address] [id number] [place] [address] Jan, [facility] [place] [facility] [address] [id number] [place] [address] Jan, [facility] [place] [facility] [address] [id number] [place] [address] Dec, [facility] [place] [address] [id number] [place] [id number] Dec, [facility] [place] [address] [id number] [place] [id number] Dec, [facility] [place] [facility] [address] [id number] [place] [address] Dec, [facility] [place] [address] [id number] [place] [id number] Nov, [facility] [place] [facility] [address] [id number] [place] [address] Nov, [facility] [place] [facility] [address] [id number] [place] [address] Oct, [facility] [place] [address] [id number] [place] [id number] Oct, [facility] [place] [address] [id number] [place] [id number] Oct, [facility] [place] [facility] [address] [id number] [place] [address] Oct, [facility] [place] [address] [id number] [place] [id number] September, [facility] [place] [facility] [address] [id number] [place] [address] September, [facility] [place] [address] [id number] [place] [id number] Aug, [facility] [place] [address] [facility] [address] [id number] [place] [id number] Aug, [facility] [address] [facility] [id number] [facility] [place] [address] Aug, [facility] [place] [facility] [address] [facility] [id number] [facility] [place] [address] Aug, [facility] [place] [address] [facility] [address] [id number] [place] [id number] Aug, [facility] [place] [facility] [address] [facility] [id number] [place] [address] Aug, [facility] [place] [address] [facility] [address] [id number] [place] [id number] May, [facility] [address] [facility] [id number] [facility] [place] [address] May, [facility] [place] [address] [facility] [address] [id number] [place] [id number] Apr, [facility] [address] [facility] [id number] [facility] [place] [address] Apr, [facility] [place] [address] [facility] [address] [id number] [place] [id number] Feb, [facility] [address] [facility] [id number] [place] [address] Feb, [facility] [address] [facility] [id number] [place] [address] Jan, [facility] [place] [facility] [address] [facility] [id number] [place] [address] Dec, [facility] [place] [address] [facility] [address] [id number] [place] [id number] Dec, [facility] [place] [address] [facility] [address] [id number] [place] [id number] Dec, IMMUNIZATIONS No Known Immunizations SOCIAL HISTORY Never Assessed REASON FOR VISIT PTH redraw labs, needs thyroid labs drawn on 10/17/16 faxed to [facility] [employer] [facility] [phone] -MAYELIN Pastor PLAN OF CARE Activity Details Follow Up prn Reason: VITAL SIGNS MEDICATIONS Unknown Medications RESULTS Name Result Date Reference Range PTH (INTACT) 2016-11-15 PTH, Intact 37 15-65 PROCEDURES Procedure Date Ordered Result Body Site ASSAY OF PARATHORMONE November 15, 2016 VENIPUNCT, ROUTINE* November 15, 2016 INSTRUCTIONS MEDICATIONS ADMINISTERED No Known Medications [...]
--- OUTSIDE RECORDS SUMMARY | 2018-02-24 06:45 | XMS REPORT ---
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 Active 57694196 Problem Crohn's disease, unspecified, with other complication K50.918 Active 14525587 Problem Other specified cardiac dysrhythmias 427.89 Active 956012337 Problem Tobacco abuse counseling Z71.6 Active 531473391 Problem Other bilateral bundle branch block 426.53 Active 41598164 Problem Tobacco abuse Z72.0 Active 714832826 Problem Foot pain, left M79.672 Active 16781574 Problem Cardiac arrhythmia, unspecified cardiac arrhythmia type I49.9 Active 43991218 Problem Major depressive disorder, single episode, unspecified F32.9 Active 57159402 Problem Hypocalcemia E83.51 Active 5751481 Problem Fever, unspecified 780.60 Active 636240835 Problem Unspecified psychosis 298.9 Active 73400583 Problem Calculus of ureter 592.1 Active 60121707 Problem Hyperparathyroidism E21.3 Active 50596886 Problem Hypercalcemia E83.52 Active 16268253 Problem 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 Active 38729401 Problem Cellulitis of neck L03.221 Active 79766359 Problem Calculus of kidney 592.0 Active 54478926 Problem Hematuria, unspecified 599.70 Active 06572056 Problem Acute sinusitis, unspecified 461.9 Active 14563056 Problem Impacted cerumen 380.4 Active 32662805 Problem 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 Active 30500551 Problem Neoplasm of unspecified nature of brain 239.6 Active 432620945 Problem Dermatophytosis of groin and perianal area 110.3 Active 061604185 Problem Malignant neoplasm of brain, unspecified site 191.9 Active 935137001 ALLERGIES Substance Reaction Event Type Date Status Aspirin crohns Drug Allergy Apr, Active SOCIAL HISTORY No smoking Hx information available PLAN OF CARE Activity Details Follow Up 2 Weeks, prn Reason: VITAL SIGNS Height 74 in 2016-05-11 Weight 237.4 lbs 2016-05-11 Temperature 98.0 degrees Fahrenheit 2016-05-11 Heart Rate 80 bpm 2016-05-11 Respiratory Rate 20 2016-05-11 BMI 30.48 kg/m2 2016-05-11 Blood pressure systolic 144 mmHg 2016-05-11 Blood pressure diastolic 88 mmHg 2016-05-11 MEDICATIONS Medication Instructions Dosage Frequency Start Date End Date Duration Status Lortab 5 500-5 MG Orally every 6 hrs 1 tablet as needed 6h Active Tamsulosin HCl 0.4 MG Orally Once a day 1 capsule 30 minutes after the same meal each day 24h Active Cephalexin 250 MG Orally Four times a day 1 capsule 6h Active RESULTS Name Result Date Reference Range TSH W/ FREE T4 2016-05-11 TSH 0.741 0.450-4.500 T4,Free(Direct) 1.47 0.82-1.77 NUCLEAR MED: Parathyroid Scan 2016-05-23 PROCEDURES Procedure Date Ordered Related Diagnosis Body Site Office Visit, Est Pt., Level 3 May 11, 2016 ASSAY THYROID STIM HORMONE May 11, 2016 VENIPUNCT, ROUTINE* May 11, 2016 ASSAY OF FREE THYROXINE May 11, 2016 IMMUNIZATIONS No Known Immunizations
--- OUTSIDE RECORDS SUMMARY | 2018-02-24 06:45 | XMS REPORT ---
Author Author [facility] Address [address] [place] [address] Care Team Providers Care Business Editor Name Role Phone OTIS KEMP Unavailable PROBLEMS Type Condition ICD9-CM Code NVH52-YB Code Onset Dates Condition Status SNOMED Code Problem Fever, unspecified 780.60 Active 300318291 Problem Hematuria, unspecified 599.70 Active 48465401 Problem Calculus of ureter 592.1 Active 34906551 Problem Calculus of kidney 592.0 Active 94518590 Problem Regional enteritis of unspecified site 555.9 Active 49663226 Problem Acute sinusitis, unspecified 461.9 Active 89999790 Problem Tobacco abuse counseling Z71.6 Active 679779260 Problem Other specified cardiac dysrhythmias 427.89 Active 241699490 Problem Foot pain, left M79.672 Active 02067437 Problem Other bilateral bundle branch block 426.53 Active 29948516 Problem Crohn's disease, unspecified, with other complication K50.918 Active 55153635 Problem Hyperparathyroidism E21.3 Active 97952918 Problem Hypercalcemia E83.52 Active 47905121 Problem Cochlear implant in place Z96.21 Active 995193000 Problem Cellulitis of head except face L03.811 Active 635115578 Problem Impacted cerumen 380.4 Active 49157893 Problem Dysfunction of Eustachian tube 381.81 Active 05039217 Problem Acute suppurative otitis media without spontaneous rupture of eardrum 382.00 Active 64027980 Problem 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 Active 91454032 Problem Cellulitis of neck L03.221 Active 61854070 Problem Major depressive disorder, single episode, unspecified F32.9 Active 35168438 Problem Hypocalcemia E83.51 Active 3981255 Problem Neoplasm of unspecified nature of brain 239.6 Active 476475616 Problem Benign neoplasm of bone and articular cartilage, 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 Active 10801522 Problem 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 Active 54335820 Problem Unspecified psychosis 298.9 Active 78407563 Problem Cardiac arrhythmia, unspecified cardiac arrhythmia type I49.9 Active 72893725 Problem Tobacco abuse Z72.0 Active 081404056 Problem Malignant neoplasm of brain, unspecified site 191.9 Active 706774646 Problem Dermatophytosis of groin and perianal area 110.3 Active 724983340 ALLERGIES No Information ENCOUNTERS Encounter Location Date Diagnosis [facility] [place] [address] [place] [address] [address] [id number] [place] [id number] May, Hyperparathyroidism E21.3 [facility] [place] [address] [place] [address] [address] [id number] [place] [id number] Mar, Hyperparathyroidism E21.3 ; Hypocalcemia E83.51 and Major depressive disorder, single episode, unspecified F32.9 [facility] [place] [address] [place] [address] C [id number] [place] [id number] Mar, Cellulitis of head except face L03.811 and Cochlear implant in place Z96.21 [facility] [place] [address] [place] [address] [address] [id number] [place] [id number] Feb, [facility] [place] [address] [place] [address] [address] [id number] [place] [id number] Feb, 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 [facility] [place] [address] [place] [address] [address] [id number] [place] [id number] Nov, Hyperparathyroidism E21.[address] [facility] [place] [address] [place] [address] C [id number] [place] [id number] Oct, Hyperparathyroidism E21.3 [facility] [place] [address] [place] [address] [address] [id number] [place] [id number] Oct, [facility] [place] [address] [place] [address] [address] [id number] [place] [id number] Oct, [facility] [place] [address] [place] [address] [address] [id number] [place] [id number] Oct, [facility] [place] [address] [place] [address] [address] [id number] [place] [id number] Oct, [facility] [address] [facility] [id number] [place] [address] Oct, [facility] [place] [address] [facility] C [id number] [place] [id number] September, 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 [facility] [place] [address] [place] [address] C [id number] [place] [id number] September, Hypocalcemia E83.51 ; 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 and Major depressive disorder, single episode, unspecified F32.9 [facility] [place] [address] [place] [address] [address] [id number] [place] [id number] September, Suicidal ideation R45.851 [facility] [place] [address] [place] [address] C [id number] [place] [id number] Aug, Hypocalcemia E83.51 [facility] [place] [address] [place] [address] C [id number] [place] [id number] Jul, 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 [facility] [place] [address] [place] [address] [address] [id number] [place] [id number] Jul, Hypercalcemia E83.52 [facility] [place] [address] [place] [address] C [id number] [place] [id number] Jul, Cellulitis of neck L03.221 [facility] [place] [address] [place] [address] C [id number] [place] [id number] Jul, Cellulitis of other specified site L03.818 and Infected incision, initial encounter T81.4XXA [facility] [place] [address] [place] [address] [address] [id number] [place] [id number] Jun, Hypercalcemia E83.52 [facility] [place] [address] [place] [address] C [id number] [place] [id number] Apr, Hypercalcemia E83.52 and Hyperparathyroidism E21.3 [facility] [place] [address] [place] [address] C [id number] [place] [id number] Apr, Hypercalcemia E83.52 [facility] [place] [address] [place] [address] C [id number] [place] [id number] Apr, Cardiac arrhythmia, unspecified cardiac arrhythmia type I49.9 and Pre-op evaluation Z01.818 [facility] [place] [address] [facility] [address] [id number] [place] [id number] Feb, Cellulitis of head except face L03.811 [facility] [place] [address] [facility] [address] [id number] [place] [id number] Oct, [facility] [place] [address] [facility] [address] [id number] [place] [id number] Oct, Foot pain, left M79.672 ; Cardiac arrhythmia, unspecified cardiac arrhythmia type I49.9 ; Tobacco abuse Z72.0 ; Tobacco abuse counseling Z71.6 and Crohn's disease, unspecified, with other complication K50.918 [facility] [place] [address] [facility] [address] [id number] [place] [id number] Oct, Screening PSA (prostate specific antigen) Z12.5 [facility] [place] [address] [place] [address] [address] [id number] [place] [id number] Mar, Otitis externa of right ear H60.91 and Otitis media, right H66.91 [facility] [place] [address] [place] [address] [address] [id number] [place] [id number] Dec, Visit for suture removal V58.32 [facility] [address] [address] Aug, [facility] [address] [id number] [address] Aug, [facility] [place] [address] [place] [address] [address] [id number] [place] [id number] Jun, [facility] [address] [facility] [id number], [place] [address] Jun, [facility] [place] [address] [place] [address] [address] [id number] [place] [id number] Mar, [facility] [address] [address] Mar, [facility] [place] [address] [facility] [address] [id number] [place] [id number] Jan, [facility] [place] [facility] [address] [id number] [place] [address] Jan, [facility] [place] [address] [id number] [place] [id number] Jan, [facility] [place] [facility] [address] [id number] [place] [address] Jan, [facility] [place] [facility] [address] [id number] [place] [address] Jan, [facility] [place] [facility] [address] [id number] [place] [address] Dec, [facility] [place] [address] [id number] [place] [id number] Dec, [facility] [place] [address] [id number] [place] [id number] Dec, [facility] [place] [facility] [address] [id number] [place] [address] Dec, [facility] [place] [address] [id number] [place] [id number] Nov, [facility] [place] [facility] [address] [id number] [place] [address] Nov, [facility] [place] [facility] [address] [id number] [place] [address] Oct, [facility] [place] [address] [id number] [place] [id number] Oct, [facility] [place] [address] [id number] [place] [id number] Oct, [facility] [place] [facility] [address] [id number] [place] [address] Oct, [facility] [place] [address] [id number] [place] [id number] September, [facility] [place] [facility] [address] [id number] [place] [address] September, [facility] [place] [address] [id number] [place] [id number] Aug, [facility] [place] [address] [facility] [address] [id number] [place] [id number] Aug, [facility] [address] [facility] [id number] [place] [address] Aug, [facility] [place] [facility] [address] [facility] [id number] [facility] [place] [address] Aug, [facility] [place] [address] [facility] [address] [id number] [place] [id number] Aug, [facility] [place] [facility] [address] [facility] [id number] [place] [address] Aug, [facility] [place] [address] [facility] [address] [id number] [place] [id number] May, [facility] [address] [facility] [id number] [place] [address] May, [facility] [place] [address] [facility] [address] [id number] [place] [id number] Apr, [facility] [place] [facility] [address] [facility] [id number] [place] [address] Apr, [facility] [place] [address] [facility] [address] [id number] [place] [id number] Feb, [facility] [address] [facility] [id number] [place] [address] Feb, [facility] [address] [facility] [id number] [place] [address] Jan, [facility] [place] [facility] [address] [facility] [id number] [place] [address] Dec, [facility] [place] [address] [facility] [address] [id number] [place] [id number] Dec, [facility] [place] [address] [facility] [address] [id number] [place] [id number] Dec, IMMUNIZATIONS No Known Immunizations SOCIAL HISTORY Never Assessed REASON FOR VISIT Lab (walk-in)/has orders with him, [facility] PLAN OF CARE Activity Details Follow Up prn Reason: VITAL SIGNS MEDICATIONS Unknown Medications RESULTS Name Result Date Reference Range TSH 2017-06-12 TSH 0.11 0.40-4.50 PROCEDURES Procedure Date Ordered Result Body Site ASSAY THYROID STIM HORMONE Jun 12, 2017 VENIPUNCT, ROUTINE* Jun 12, 2017 INSTRUCTIONS MEDICATIONS ADMINISTERED No Known Medications [...]
--- OUTSIDE RECORDS SUMMARY | 2018-02-24 06:45 | XMS REPORT ---
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 Active 37045625 Problem Crohn's disease, unspecified, with other complication K50.918 Active 86249008 Problem Other specified cardiac dysrhythmias 427.89 Active 293715533 Problem Tobacco abuse counseling Z71.6 Active 734854509 Problem Other bilateral bundle branch block 426.53 Active 81049812 Problem Tobacco abuse Z72.0 Active 634608514 Problem Foot pain, left M79.672 Active 34740573 Problem Cardiac arrhythmia, unspecified cardiac arrhythmia type I49.9 Active 47480531 Problem Major depressive disorder, single episode, unspecified F32.9 Active 91558346 Problem Hypocalcemia E83.51 Active 7512868 Problem Fever, unspecified 780.60 Active 087288752 Problem Unspecified psychosis 298.9 Active 56614036 Problem Calculus of ureter 592.1 Active 17568972 Problem Hyperparathyroidism E21.3 Active 68810315 Problem Hypercalcemia E83.52 Active 66873698 Problem 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 Active 31009973 Problem Cellulitis of neck L03.221 Active 22624013 Problem Calculus of kidney 592.0 Active 58513320 Problem Hematuria, unspecified 599.70 Active 27311176 Problem Acute sinusitis, unspecified 461.9 Active 18395609 Problem Impacted cerumen 380.4 Active 43836109 Problem 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 Active 77631905 Problem Neoplasm of unspecified nature of brain 239.6 Active 142104631 Problem Dermatophytosis of groin and perianal area 110.3 Active 135910745 Problem Malignant neoplasm of brain, unspecified site 191.9 Active 783002691 ALLERGIES Unknown Allergies SOCIAL HISTORY No smoking Hx information available PLAN OF CARE Activity Details Follow Up prn Reason: VITAL SIGNS MEDICATIONS Unknown Medications RESULTS Name Result Date Reference Range PTH (INTACT) 2016-05-03 PTH, Intact 130 15-65 PROCEDURES Procedure Date Ordered Related Diagnosis Body Site ROUTINE VENIPUNCTURE 2016-05-03 N/A ASSAY OF PARATHORMONE May 03, 2016 VENIPUNCT, ROUTINE* May 03, 2016 IMMUNIZATIONS No Known Immunizations
--- OUTSIDE RECORDS SUMMARY | 2018-02-24 06:46 | XMS REPORT ---
Author Author [facility] Address [address] [place] [address] Care Team Providers Care Ice Cream Mixer Name Role Phone OTIS KEMP Unavailable PROBLEMS Type Condition ICD9-CM Code AZR81-CR Code Onset Dates Condition Status SNOMED Code Problem Fever, unspecified 780.60 Active 051375991 Problem Hematuria, unspecified 599.70 Active 50420736 Problem Calculus of ureter 592.1 Active 60435056 Problem Calculus of kidney 592.0 Active 13753461 Problem Regional enteritis of unspecified site 555.9 Active 27935427 Problem Acute sinusitis, unspecified 461.9 Active 33407213 Problem Tobacco abuse counseling Z71.6 Active 913568398 Problem Other specified cardiac dysrhythmias 427.89 Active 452794020 Problem Foot pain, left M79.672 Active 56823632 Problem Other bilateral bundle branch block 426.53 Active 06473360 Problem Crohn's disease, unspecified, with other complication K50.918 Active 48925863 Problem Hyperparathyroidism E21.3 Active 61079354 Problem Hypercalcemia E83.52 Active 22890936 Problem Cochlear implant in place Z96.21 Active 629426887 Problem Cellulitis of head except face L03.811 Active 305698947 Problem Impacted cerumen 380.4 Active 85767007 Problem Dysfunction of Eustachian tube 381.81 Active 53171315 Problem Acute suppurative otitis media without spontaneous rupture of eardrum 382.00 Active 13583437 Problem 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 Active 52640869 Problem Cellulitis of neck L03.221 Active 82031813 Problem Major depressive disorder, single episode, unspecified F32.9 Active 79435853 Problem Hypocalcemia E83.51 Active 2834348 Problem Neoplasm of unspecified nature of brain 239.6 Active 664546842 Problem Benign neoplasm of bone and articular cartilage, 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 Active 15540568 Problem 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 Active 50889295 Problem Unspecified psychosis 298.9 Active 30629252 Problem Cardiac arrhythmia, unspecified cardiac arrhythmia type I49.9 Active 19817865 Problem Tobacco abuse Z72.0 Active 223053235 Problem Malignant neoplasm of brain, unspecified site 191.9 Active 746301440 Problem Dermatophytosis of groin and perianal area 110.3 Active 834323532 ALLERGIES No Information ENCOUNTERS Encounter Location Date Diagnosis [facility] [place] [address] [place] [address] [address] [id number] [place] [id number] May, Hyperparathyroidism E21.3 [facility] [place] [address] [place] [address] [address] [id number] [place] [id number] Mar, Hyperparathyroidism E21.3 ; Hypocalcemia E83.51 and Major depressive disorder, single episode, unspecified F32.9 [facility] [place] [address] [place] [address] C [id number] [place] [id number] Mar, Cellulitis of head except face L03.811 and Cochlear implant in place Z96.21 [facility] [place] [address] [place] [address] [address] [id number] [place] [id number] Feb, [facility] [place] [address] [place] [address] [address] [id number] [place] [id number] Feb, 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 [facility] [place] [address] [place] [address] [address] [id number] [place] [id number] Nov, Hyperparathyroidism E21.3 [facility] [place] [address] [place] [address] C [id number] [place] [id number] Oct, Hyperparathyroidism E21.3 [facility] [place] [address] [place] [address] [address] [id number] [place] [id number] Oct, [facility] [place] [address] [place] [address] [address] [id number] [place] [id number] Oct, [facility] [place] [address] [place] [address] [address] [id number] [place] [id number] Oct, [facility] [place] [address] [place] [address] [address] [id number] [place] [id number] Oct, [facility] [address] [facility]NOTE 3] [id number] [place] [address] Oct, [facility] [place] [address] [facility] [address] [id number] [place] [id number] September, 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 [facility] [place] [address] [place] [address] C [id number] [place] [id number] September, Hypocalcemia E83.51 ; 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 and Major depressive disorder, single episode, unspecified F32.9 [facility] [place] [address] [place] [address] [address] [id number] [place] [id number] September, Suicidal ideation R45.851 [facility] [place] [address] [place] [address] C [id number] [place] [id number] Aug, Hypocalcemia E83.51 [facility] [place] [address] [place] [address] C [id number] [place] [id number] Jul, 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 [facility] [place] [address] [place] [address] [address] [id number] [place] [id number] Jul, Hypercalcemia E83.52 [facility] [place] [address] [place] [address] C [id number] [place] [id number] Jul, Cellulitis of neck L03.221 [facility] [place] [address] [place] [address] C [id number] [place] [id number] Jul, Cellulitis of other specified site L03.818 and Infected incision, initial encounter T81.4XXA [facility] [place] [address] [place] [address] [address] [id number] [place] [id number] Jun, Hypercalcemia E83.52 [facility] [place] [address] [place] [address] C [id number] [place] [id number] Apr, Hypercalcemia E83.52 and Hyperparathyroidism E21.3 [facility] [place] [address] [place] [address] C [id number] [place] [id number] Apr, Hypercalcemia E83.52 [facility] [place] [address] [place] [address] C [id number] [place] [id number] Apr, Cardiac arrhythmia, unspecified cardiac arrhythmia type I49.9 and Pre-op evaluation Z01.818 [facility] [place] [address] [facility] [address] [id number] [place] [id number] Feb, Cellulitis of head except face L03.[address] [facility] [place] [address] [facility] [address] [id number] [place] [id number] Oct, [facility] [place] [address] [facility] [address] [id number] [place] [id number] Oct, Foot pain, left M79.672 ; Cardiac arrhythmia, unspecified cardiac arrhythmia type I49.9 ; Tobacco abuse Z72.0 ; Tobacco abuse counseling Z71.6 and Crohn's disease, unspecified, with other complication K50.918 [facility] [place] [address] [facility] [address] [id number] [place] [id number] Oct, Screening PSA (prostate specific antigen) Z12.5 [facility] [place] [address] [place] [address] [address] [id number] [place] [id number] Mar, Otitis externa of right ear H60.91 and Otitis media, right H66.91 [facility] [place] [address] [place] [address] [address] [id number] [place] [id number] Dec, Visit for suture removal V58.32 [facility] [address] [address] Aug, [facility] [id number] [address] Aug, [facility] [place] [address] [place] [address] [address] [id number] [place] [id number] Jun, [facility] [address] [facility]NOTE 3] [id number] [address] Jun, [facility] [place] [address] [place] [address] [address] [id number] [place] [id number] Mar, [facility] [address] [address] Mar, [facility] [place] [address] [facility] [address] [id number] [place] [id number] Jan, [facility] [place] [facility] [address] [id number] [place] [address] Jan, [facility] [place] [address] [id number] [place] [id number] Jan, [facility] [place] [facility] [address] [id number] [place] [address] Jan, [facility] [place] [facility] [address] [id number] [place] [address] Jan, [facility] [place] [facility] [address] [id number] [place] [address] Dec, [facility] [place] [address] [id number] [place] [id number] Dec, [facility] [place] [address] [id number] [place] [id number] Dec, [facility] [place] [facility] [address] [id number] [place] [address] Dec, [facility] [place] [address] [id number] [place] [id number] Nov, [facility] [place] [facility] [address] [id number] [place] [address] Nov, [facility] [place] [facility] [address] [id number] [place] [address] Oct, [facility] [place] [address] [id number] [place] [id number] Oct, [facility] [place] [address] [id number] [place] [id number] Oct, [facility] [place] [facility] [address] [id number] [place] [address] Oct, [facility] [place] [address] [id number] [place] [id number] September, [facility] [place] [facility] [address] [id number] [place] [address] September, [facility] [place] [address] [id number] [place] [id number] Aug, [facility] [place] [address] [facility] [address] [id number] [place] [id number] Aug, [facility] [place] [facility] [address] [facility][NOTE 3] [id number] [place] [address] Aug, [facility] [address] [facility]NOTE 3] [id number] [facility] [place] [address] Aug, [facility] [place] [address] [facility] [address] [id number] [place] [id number] Aug, [facility] [address] [facility]NOTE 3] [id number] [place] [address] Aug, [facility] [place] [address] [facility] [address] [id number] [place] [id number] May, [facility] [address] [facility][NOTE 3] [id number] [place] [address] May, [facility] [place] [address] [facility] [address] [id number] [place] [id number] Apr, [facility] [address] [facility][NOTE 3] [id number] [place] [address] Apr, [facility] [place] [address] [facility] [address] [id number] [place] [address] Feb, [facility] [address] [facility][NOTE 3] [id number] [place] [address] Feb, [facility] [address] [facility][NOTE 3] [id number] [place] [address] Jan, [facility] [address] [facility][NOTE 3] [id number] [place] [address] Dec, [facility] [place] [address] [facility] [address] [id number] [place] [address] Dec, [facility] [place] [address] [facility] [address] [id number] [place] [id number] Dec, IMMUNIZATIONS No Known Immunizations SOCIAL HISTORY Never Assessed REASON FOR VISIT PLAN OF CARE VITAL SIGNS MEDICATIONS Medication Instructions Dosage Frequency Start Date End Date Duration Status Synthroid 200 MCG Orally Once a day 1 tablet on an empty stomach in the morning 24h Feb, 30 day(s) Active RESULTS No Results PROCEDURES No [...]
--- OUTSIDE RECORDS SUMMARY | 2018-02-24 06:46 | XMS REPORT ---
Author Author YUDI BORREGO [facility] Address Unknown Phone Unavailable Care Team Providers Care Stationary Fireman Name Role Phone YUDI BORREGO CP Unavailable Allergies, Adverse Reactions, Alerts Substance Reaction Event Type Aspirin crohns Drug Allergy Problems Problem Type Condition Code Onset Dates Condition Status Problem Unspecified [...] Active Problem Hematuria, unspecified 599.70 Active Assessment Otitis externa of right ear H60.91 Active Problem Acute suppurative otitis media without spontaneous rupture of eardrum 382.00 Active Assessment Otitis media, right H66.91 Active Problem Benign neoplasm of bone and articular cartilage, 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 [address]-00 0.4 MG Orally Once a day 1 capsule 30 minutes after the same meal each day Cortisporin [facility] [address]-36 3.5-98732-6 Otic Three times a day Mar 24, 2015 4 drops into affected ear Zithromax Tri-Albino [facility] [address]-24 500 MG Orally Once a day 1 TAB Procedures Procedure Coding System Code Date Office Visit, Est Pt., Level 3 CPT-4 79398 Mar 24, 2015 Vital Signs Date/Time: Mar 24, 2015 Temperature 97.8 F Weight 220.6 lbs Height 74 in BMI 28.32 Index Blood Pressure Diastolic 76 mmHg Blood Pressure Systolic 114 mmHg Cardiac Monitoring Heart Rate 76 bpm Results No Known Results Summary Purpose eClinicalWorks Submission
--- OUTSIDE RECORDS SUMMARY | 2018-02-24 06:46 | XMS REPORT ---
Author Author [facility]P [facility] Address [address] [place] [address] Care Team Providers Care University Demonstrator Name Role Phone OTIS KEMP Unavailable PROBLEMS Type Condition ICD9-CM Code EMN13-ZZ Code Onset Dates Condition Status SNOMED Code Problem Fever, unspecified 780.60 Active 125448513 Problem Hematuria, unspecified 599.70 Active 06243563 Problem Calculus of ureter 592.1 Active 75679305 Problem Calculus of kidney 592.0 Active 63230291 Problem Regional enteritis of unspecified site 555.9 Active 61495371 Problem Acute sinusitis, unspecified 461.9 Active 35625294 Problem Tobacco abuse counseling Z71.6 Active 522864206 Problem Other specified cardiac dysrhythmias 427.89 Active 295708192 Problem Foot pain, left M79.672 Active 43737867 Problem Other bilateral bundle branch block 426.53 Active 40193268 Problem Crohn's disease, unspecified, with other complication K50.918 Active 73015681 Problem Hyperparathyroidism E21.3 Active 66008202 Problem Hypercalcemia E83.52 Active 44773617 Problem Cochlear implant in place Z96.21 Active 295990625 Problem Cellulitis of head except face L03.811 Active 452516793 Problem Impacted cerumen 380.4 Active 94103636 Problem Dysfunction of Eustachian tube 381.81 Active 68765757 Problem Acute suppurative otitis media without spontaneous rupture of eardrum 382.00 Active 58823056 Problem 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 Active 43915848 Problem Cellulitis of neck L03.221 Active 47303098 Problem Major depressive disorder, single episode, unspecified F32.9 Active 10925738 Problem Hypocalcemia E83.51 Active 0105647 Problem Neoplasm of unspecified nature of brain 239.6 Active 705744410 Problem Benign neoplasm of bone and articular cartilage, 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
--- OUTSIDE RECORDS SUMMARY | 2018-02-24 06:47 | XMS REPORT | Clinical Summary ---
Author Author Admin, E Organization [facility] Address Unknown Phone Unavailable Allergies, Adverse Reactions, Alerts Allergy Name Reaction Description Start Date Severity Status Provider IMURAN Critical Active Leonila Mckeon MD Conditions or Problems Problem Name Problem Code Onset Date Status Entry Date Provider Comment Standard Description Annotate HEMATURIA 599.70 Active Leonila Mckeon MD Hematuria, unspecified U T I-ACUTE 599.0 Active Leonila Mckeon MD Urinary tract infection, site not specified CALCULUS OF KIDNEY 592.0 Active Leonila Mckeon MD Calculus of kidney RENAL CALCULUS 592.9 Active Leonila Mckeon MD Urinary calculus, unspecified URETERAL CALCULUS 592.1 Active Leonila Mckeon MD Calculus of ureter [facility] Active Leonila Mckeon MD Hypertrophy ( benign) of prostate without urinary obstruction and other lower urinary tract ( LUTS) Hx of kidney stones V13.01 Active Leonila Mckeon MD Personal history of urinary calculi Medication List Medication Instructions Start Date Stop Date Generic Name NDC Status Provider Patient Instruction SYNTHROID 200 MCG ORAL TABLET 1 tablet by mouth daily LEVOTHYROXINE SODIUM 75087399161 Active Leonila Mckeon MD Active TAMSULOSIN HCL 0.4 MG ORAL CAPSULE Take one tablet daily TAMSULOSIN HCL 87823130536 Active Leonila Mckeon MD Active TAMSULOSIN HCL 0.4 MG ORAL CAPSULE 1 cap 30min after the same meal each day, once a day TAMSULOSIN HCL 58665407666 No Longer Active Leonila Mckeon MD Active SEROQUEL 100 MG ORAL TABLET QUETIAPINE FUMARATE 59677500513 No Longer Active Leonila Mckeon MD Active ROCEPHIN 1 GM INJECTION SOLUTION RECONSTITUTED CEFTRIAXONE SODIUM 44509584042 No Longer Active Leonila Mckeon MD Active BENADRYL ALLERGY 25 MG ORAL CAPSULE 2 caps DIPHENHYDRAMINE HCL 80919314921 No Longer Active Leonila Mckeon MD Active COLACE 100 MG ORAL CAPSULE BID DOCUSATE SODIUM 12875034973 No Longer Active Leonila Mckeon MD Active PEPCID 40 MG ORAL TABLET FAMOTIDINE 07316937978 No Longer Active Leonila Mckeon MD Active TAMSULOSIN HCL 0.4 MG ORAL CAPSULE 1 tab daily TAMSULOSIN HCL 94902103435 No Longer Active Leonila Mckeon MD Active METHOTREXATE SODIUM 25 MG/ML SOLN 1 ml injection 1 x weekly METHOTREXATE SODIUM 15670369166 No Longer Active Leonila Mckeon MD Active FLAGYL 500 MG ORAL TABLET 1 tablet by mouth bid METRONIDAZOLE 77183193656 No Longer Active Leonila Mckeon MD Active KEFLEX 500 MG ORAL CAPSULE 1 tablet three times a day CEPHALEXIN 05598870851 No Longer Active Steph GORE Active HUMIRA PEN 40 MG/0.8ML KIT 1 pen subcutaneous q 14 days ADALIMUMAB 93721735508 No Longer Active Leonila Mckeon MD Active FLAGYL 500 MG ORAL TABLET 1 tablet by mouth bid FLAGYL 500 MG ORAL TABLET 889775 METRONIDAZOLE Inactive METHOTREXATE SODIUM 25 MG/ML SOLN 1 ml injection 1 x weekly METHOTREXATE SODIUM 25 MG/ML SOLN METHOTREXATE SODIUM Inactive PEPCID 40 MG ORAL TABLET PEPCID 40 MG ORAL TABLET 617067 FAMOTIDINE Inactive COLACE 100 MG ORAL CAPSULE BID COLACE 100 MG ORAL CAPSULE 0418757 DOCUSATE SODIUM Inactive BENADRYL ALLERGY 25 MG ORAL CAPSULE 2 caps BENADRYL ALLERGY 25 MG ORAL CAPSULE 4649863 DIPHENHYDRAMINE HCL Inactive ROCEPHIN 1 GM INJECTION SOLUTION RECONSTITUTED ROCEPHIN 1 GM INJECTION SOLUTION RECONSTITUTED 5149564 CEFTRIAXONE SODIUM Inactive SEROQUEL 100 MG ORAL TABLET SEROQUEL 100 MG ORAL TABLET 057189 QUETIAPINE FUMARATE Inactive TAMSULOSIN HCL 0.4 MG ORAL CAPSULE 1 cap 30min after the same meal each day, once a day TAMSULOSIN HCL 0.4 MG ORAL CAPSULE 731372 TAMSULOSIN HCL Inactive HUMIRA PEN 40 MG/0.8ML KIT 1 pen subcutaneous q 14 days HUMIRA PEN 40 MG/0.8ML KIT ADALIMUMAB Inactive KEFLEX 500 MG ORAL CAPSULE 1 tablet three times a day KEFLEX 500 MG ORAL CAPSULE 708026 CEPHALEXIN Inactive TAMSULOSIN HCL 0.4 MG ORAL CAPSULE 1 tab daily TAMSULOSIN HCL 0.4 MG ORAL CAPSULE 330140 TAMSULOSIN HCL Inactive Advance Directives Directive Description Start Date PERMISSION TO SHARE Vital Signs Date Name Value Unit Range Description blood pressure, diastolic, repeated by physician 85 BP dunne blood pressure, diastolic 85 mm[Hg] BP dunne blood pressure, systolic, repeated by physician 152 BP sys blood pressure, systolic 152 mm[Hg] BP sys height E&M 73 [in_us] Bdy height pulse rate E&M 55 /min Heart rate temperature E&M 97.6 [degF] Body temperature weight E&M 226 [lb_av] Weight Measured Encounters Code Encounter Date Provider Facility CPT-74082 Level 3 Est. Patient 16:00:06 CDT Leonila Mckeno MD [facility] CPT-42947 Level 3 Est. Patient 02:50:42 CDT Leonila Mckeon MD [facility] CPT-17173 Level 3 Est. Patient 15:47:48 CDT Leonila Mckeon MD [facility] CPT-36463 Level 3 Est. Patient 18:22:46 CDT Leonila Mckeon MD [facility] CPT-15457 Level 3 Est. Patient 07:54:29 CDT Leonila Mckeon MD [facility] CPT-40292 Level 3 Est. Patient 19:49:47 CDT Leonila Mckeon MD [facility] [place] CPT-68145 Level 3 Est. Patient 16:58:22 CDT Leonila Mckeon MD [facility] [place] Procedures Code Procedure Name Date Entry Date Standard Description CPT-62480 Bladder Scan 16:00:06 CDT CPT-02912 Abdomen, 1 view 15:23:45 CDT CPT-23503 Postop F/U Visit 17:25:50 CDT CPT-55912 Abd single AP View 13:20:43 CDT CPT-48249 Postop F/U Visit 15:06:29 CDT CPT-31363 Abd single AP View 08:57:17 CDT CPT-13901 Cystoscopy 19:49:47 CDT CPT-37779 Bladder Scan 19:49:47 CDT CPT-93121 Urine Dip (Floor Use Only) 16:58:22 CDT
--- OUTSIDE RECORDS SUMMARY | 2018-02-24 06:47 | XMS REPORT | Clinical Summary ---
Author Author Admin, E Organization [facility] [place] Address Unknown Phone Unavailable Allergies, Adverse Reactions, [...] Instructions Start Date Stop Date Generic Name ND Status Provider Patient Instruction SYNTHROID 200 MCG ORAL TABLET 1 tablet by mouth daily LEVOTHYROXINE SODIUM 80303921959 Active Leonila Mckeon MD Active TAMSULOSIN HCL 0.4 MG ORAL CAPSULE Take one tablet daily TAMSULOSIN HCL 41019448607 Active Yvonne Brown Active TAMSULOSIN HCL 0.4 MG ORAL CAPSULE 1 cap 30min after the same meal each day, once a day TAMSULOSIN HCL 80300769205 No Longer Active Leonila Mckeon MD Active SEROQUEL 100 MG ORAL TABLET QUETIAPINE FUMARATE 19025096292 No Longer Active Leonila Mckeon MD Active ROCEPHIN 1 GM INJECTION SOLUTION RECONSTITUTED CEFTRIAXONE SODIUM 61343479854 No Longer Active Leonila Mckeon MD Active BENADRYL ALLERGY 25 MG ORAL CAPSULE 2 caps DIPHENHYDRAMINE HCL 39415200513 No Longer Active Leonila Mckeon MD Active COLACE 100 MG ORAL CAPSULE BID DOCUSATE SODIUM 13169976688 No Longer Active Leonila Mckeon MD Active PEPCID 40 MG ORAL TABLET FAMOTIDINE 51057156190 No Longer Active Leonila Mckeon MD Active TAMSULOSIN HCL 0.4 MG ORAL CAPSULE 1 tab daily TAMSULOSIN HCL 15563391662 No Longer Active Leonila Mckeon MD Active METHOTREXATE SODIUM 25 MG/ML SOLN 1 ml injection 1 x weekly METHOTREXATE SODIUM 10098364506 No Longer Active Leonila Mckeon MD Active FLAGYL 500 MG ORAL TABLET 1 tablet by mouth bid METRONIDAZOLE 48538159653 No Longer Active Leonila Mckeon MD Active KEFLEX 500 MG ORAL CAPSULE 1 tablet three times a day CEPHALEXIN 71328151731 No Longer Active Steph GORE Active HUMIRA PEN 40 MG/0.8ML KIT 1 pen subcutaneous q 14 days ADALIMUMAB 27098008517 No Longer Active Leonila Mckeon MD Active FLAGYL 500 MG ORAL TABLET 1 tablet by mouth bid FLAGYL 500 MG ORAL TABLET 528930 METRONIDAZOLE Inactive METHOTREXATE SODIUM 25 MG/ML SOLN 1 ml injection 1 x weekly METHOTREXATE SODIUM 25 MG/ML SOLN METHOTREXATE SODIUM Inactive PEPCID 40 MG ORAL TABLET PEPCID 40 MG ORAL TABLET 474547 FAMOTIDINE Inactive COLACE 100 MG ORAL CAPSULE BID COLACE 100 MG ORAL CAPSULE 0868844 DOCUSATE SODIUM Inactive BENADRYL ALLERGY 25 MG ORAL CAPSULE 2 caps BENADRYL ALLERGY 25 MG ORAL CAPSULE 8419772 DIPHENHYDRAMINE HCL Inactive ROCEPHIN 1 GM INJECTION SOLUTION RECONSTITUTED ROCEPHIN 1 GM INJECTION SOLUTION RECONSTITUTED 9290281 CEFTRIAXONE SODIUM Inactive SEROQUEL 100 MG ORAL TABLET SEROQUEL 100 MG ORAL TABLET 294426 QUETIAPINE FUMARATE Inactive TAMSULOSIN HCL 0.4 MG ORAL CAPSULE 1 cap 30min after the same meal each day, once a day TAMSULOSIN HCL 0.4 MG ORAL CAPSULE 376613 TAMSULOSIN HCL Inactive HUMIRA PEN 40 MG/0.8ML KIT 1 pen subcutaneous q 14 days HUMIRA PEN 40 MG/0.8ML KIT ADALIMUMAB Inactive KEFLEX 500 MG ORAL CAPSULE 1 tablet three times a day KEFLEX 500 MG ORAL CAPSULE 369823 CEPHALEXIN Inactive TAMSULOSIN HCL 0.4 MG ORAL CAPSULE 1 tab daily TAMSULOSIN HCL 0.4 MG ORAL CAPSULE 903170 TAMSULOSIN HCL Inactive Advance Directives Directive Description Start Date PERMISSION TO SHARE Vital Signs Date Name Value Unit Range Description blood pressure, diastolic 78 mm[Hg] BP dunne blood pressure, systolic 122 mm[Hg] BP sys temperature E&M 98.8 [degF] Body temperature weight E&M 224 [lb_av] Weight Measured Encounters Code Encounter Date Provider Facility CPT-67793 Level 3 Est. Patient 16:00:06 CDT Leonila Mckeon MD [facility] CPT-77078 Level 3 Est. Patient 02:50:42 CDT Leonila Mckoen MD [facility] CPT-28268 Level 3 Est. Patient 15:47:48 CDT Leonila Mckeon MD [facility] CPT-10807 Level 3 Est. Patient 18:22:46 CDT Leonila Mckeon MD [facility] CPT-74904 Level 3 Est. Patient 07:54:29 CDT Leonila Mckeon MD [facility] CPT-52524 Level 3 Est. Patient 19:49:47 CDT Leonila Mckeon MD [facility] CPT-83256 Level 3 Est. Patient 16:58:22 CDT Leonila Mckeon MD [facility] [place] Procedures Code Procedure Name Date Entry Date Standard Description CPT-38328 Bladder Scan 16:00:06 CDT CPT-63450 Abdomen, 1 view 15:23:45 CDT CPT-93113 Postop F/U Visit 17:25:50 CDT CPT-58390 Abd single AP View 13:20:43 CDT CPT-74614 Postop F/U Visit 15:06:29 CDT CPT-96114 Abd single AP View 08:57:17 CDT CPT-76016 Cystoscopy 19:49:47 CDT CPT-95103 Bladder Scan 19:49:47 CDT CPT-35672 Urine Dip (Floor Use Only) 16:58:22 CDT
--- OUTSIDE RECORDS SUMMARY | 2018-02-24 06:47 | XMS REPORT | Clinical Summary ---
Author Author Admin, E Organization [facility] [place] Address Unknown Phone Unavailable Allergies, Adverse Reactions, [...] 1 tablet by mouth daily LEVOTHYROXINE SODIUM 98531387705 Active Leonila Mckeon MD Active TAMSULOSIN HCL 0.4 MG ORAL CAPSULE Take one tablet daily TAMSULOSIN HCL 25171020485 Active Leonila Mckeon MD Active TAMSULOSIN HCL 0.4 MG ORAL CAPSULE 1 cap 30min after the same meal each day, once a day TAMSULOSIN HCL 41567380958 No Longer Active Leonila Mckeon MD Active SEROQUEL 100 MG ORAL TABLET QUETIAPINE FUMARATE 19505409636 No Longer Active Leonila Mckeon MD Active ROCEPHIN 1 GM INJECTION SOLUTION RECONSTITUTED CEFTRIAXONE SODIUM 45948491921 No Longer Active Leonila Mckeon MD Active BENADRYL ALLERGY 25 MG ORAL CAPSULE 2 caps DIPHENHYDRAMINE HCL 27501136147 No Longer Active Leonila Mckeon MD Active COLACE 100 MG ORAL CAPSULE BID DOCUSATE SODIUM 25808949019 No Longer Active Leonila Mckeon MD Active PEPCID 40 MG ORAL TABLET FAMOTIDINE 15944000838 No Longer Active Leonila Mckeon MD Active TAMSULOSIN HCL 0.4 MG ORAL CAPSULE 1 tab daily TAMSULOSIN HCL 65159912539 No Longer Active Leonila Mckeon MD Active METHOTREXATE SODIUM 25 MG/ML SOLN 1 ml injection 1 x weekly METHOTREXATE SODIUM 42263011710 No Longer Active Leonila Mckeon MD Active FLAGYL 500 MG ORAL TABLET 1 tablet by mouth bid METRONIDAZOLE 93002026264 No Longer Active Leonila Mckeon MD Active KEFLEX 500 MG ORAL CAPSULE 1 tablet three times a day CEPHALEXIN 76875422077 No Longer Active Steph GORE Active HUMIRA PEN 40 MG/0.8ML KIT 1 pen subcutaneous q 14 days ADALIMUMAB 08794601403 No Longer Active Leonila Mckeon MD Active FLAGYL 500 MG ORAL TABLET 1 tablet by mouth bid FLAGYL 500 MG ORAL TABLET 052086 METRONIDAZOLE Inactive METHOTREXATE SODIUM 25 MG/ML SOLN 1 ml injection 1 x weekly METHOTREXATE SODIUM 25 MG/ML SOLN METHOTREXATE SODIUM Inactive PEPCID 40 MG ORAL TABLET PEPCID 40 MG ORAL TABLET 918308 FAMOTIDINE Inactive COLACE 100 MG ORAL CAPSULE BID COLACE 100 MG ORAL CAPSULE 8172472 DOCUSATE SODIUM Inactive BENADRYL ALLERGY 25 MG ORAL CAPSULE 2 caps BENADRYL ALLERGY 25 MG ORAL CAPSULE 0231057 DIPHENHYDRAMINE HCL Inactive ROCEPHIN 1 GM INJECTION SOLUTION RECONSTITUTED ROCEPHIN 1 GM INJECTION SOLUTION RECONSTITUTED 6775229 CEFTRIAXONE SODIUM Inactive SEROQUEL 100 MG ORAL TABLET SEROQUEL 100 MG ORAL TABLET 487593 QUETIAPINE FUMARATE Inactive TAMSULOSIN HCL 0.4 MG ORAL CAPSULE 1 cap 30min after the same meal each day, once a day TAMSULOSIN HCL 0.4 MG ORAL CAPSULE 138498 TAMSULOSIN HCL Inactive HUMIRA PEN 40 MG/0.8ML KIT 1 pen subcutaneous q 14 days HUMIRA PEN 40 MG/0.8ML KIT ADALIMUMAB Inactive KEFLEX 500 MG ORAL CAPSULE 1 tablet three times a day KEFLEX 500 MG ORAL CAPSULE 376784 CEPHALEXIN Inactive TAMSULOSIN HCL 0.4 MG ORAL CAPSULE 1 tab daily TAMSULOSIN HCL 0.4 MG ORAL CAPSULE 200693 TAMSULOSIN HCL Inactive Advance Directives Directive Description [...] temperature weight E&M 226 [lb_av] Weight Measured blood pressure, diastolic 78 mm[Hg] BP dunne blood pressure, systolic 122 mm[Hg] BP sys temperature E&M 98.8 [degF] Body temperature weight E&M 224 [lb_av] Weight Measured Encounters Code Encounter Date Provider Facility CPT-95661 Level 3 Est. Patient 16:00:06 ALEX Mckeon MD [facility] CPT-41190 Level 3 Est. Patient 02:50:42 CDT Leonila Mckeon MD [facility] CPT-26700 Level 3 Est. Patient 15:47:48 CDT Leonila Mckeon MD [facility] CPT-23316 Level 3 Est. Patient 18:22:46 CDT Leonila Mckeon MD [facility] CPT-20940 Level 3 Est. Patient 07:54:29 CDT Leonila Mckeon MD [facility] CPT-89497 Level 3 Est. Patient 19:49:47 CDT Leonila Mckeon MD [facility] CPT-13018 Level 3 Est. Patient 16:58:22 CDT Leonila Mckeon MD [facility] Procedures Code Procedure Name Date Entry Date Standard Description CPT-53411 Bladder Scan 16:00:06 CDT CPT-59445 Abdomen, 1 view 15:23:45 CDT CPT-64802 Postop F/U Visit 17:25:50 CDT CPT-54250 Abd single AP View 13:20:43 CDT CPT-15515 Postop F/U Visit 15:06:29 CDT CPT-04561 Abd single AP View 08:57:17 CDT CPT-32096 Cystoscopy 19:49:47 CDT CPT-04659 Bladder Scan 19:49:47 CDT CPT-52745 Urine Dip (Floor Use Only) 16:58:22 CDT
--- OUTSIDE RECORDS SUMMARY | 2018-02-24 06:48 | XMS REPORT | Clinical Summary ---
Author Author Admin, E Organization [facility] [employer] [place] Address Unknown Phone Unavailable Allergies, Adverse Reactions, [...] specified CALCULUS OF KIDNEY 592.0 Active Leonila Mckoen MD Calculus of kidney RENAL CALCULUS 592.9 [...] 1 tablet by mouth daily LEVOTHYROXINE SODIUM 97781710173 Active Leonila Mckeon MD Active TAMSULOSIN HCL 0.4 MG ORAL CAPSULE Take one tablet daily TAMSULOSIN HCL 97968859436 Active Yvonne Brown Active TAMSULOSIN HCL 0.4 MG ORAL CAPSULE 1 cap 30min after the same meal each day, once a day TAMSULOSIN HCL 82528293512 No Longer Active Leonila Mckeon MD Active SEROQUEL 100 MG ORAL TABLET QUETIAPINE FUMARATE 88411667805 No Longer Active Leonila Mckeon MD Active ROCEPHIN 1 GM INJECTION SOLUTION RECONSTITUTED CEFTRIAXONE SODIUM 58238155058 No Longer Active Leonila Mckeon MD Active BENADRYL ALLERGY 25 MG ORAL CAPSULE 2 caps DIPHENHYDRAMINE HCL 61391865308 No Longer Active Leonila Mckeon MD Active COLACE 100 MG ORAL CAPSULE BID DOCUSATE SODIUM 05347463982 No Longer Active Leonila Mckeon MD Active PEPCID 40 MG ORAL TABLET FAMOTIDINE 31871948249 No Longer Active Leonila Mckeon MD Active TAMSULOSIN HCL 0.4 MG ORAL CAPSULE 1 tab daily TAMSULOSIN HCL 92001424907 No Longer Active Leonila Mckeon MD Active METHOTREXATE SODIUM 25 MG/ML SOLN 1 ml injection 1 x weekly METHOTREXATE SODIUM 25520726343 No Longer Active Leonila Mckeon MD Active FLAGYL 500 MG ORAL TABLET 1 tablet by mouth bid METRONIDAZOLE 38010192240 No Longer Active Leonila Mckeon MD Active KEFLEX 500 MG ORAL CAPSULE 1 tablet three times a day CEPHALEXIN 18623795466 No Longer Active Steph GORE Active HUMIRA PEN 40 MG/0.8ML KIT 1 pen subcutaneous q 14 days ADALIMUMAB 02035610767 No Longer Active Leonila Mckeon MD Active FLAGYL 500 MG ORAL TABLET 1 tablet by mouth bid FLAGYL 500 MG ORAL TABLET 674774 METRONIDAZOLE Inactive METHOTREXATE SODIUM 25 MG/ML SOLN 1 ml injection 1 x weekly METHOTREXATE SODIUM 25 MG/ML SOLN METHOTREXATE SODIUM Inactive PEPCID 40 MG ORAL TABLET PEPCID 40 MG ORAL TABLET 608217 FAMOTIDINE Inactive COLACE 100 MG ORAL CAPSULE BID COLACE 100 MG ORAL CAPSULE 3809847 DOCUSATE SODIUM Inactive BENADRYL ALLERGY 25 MG ORAL CAPSULE 2 caps BENADRYL ALLERGY 25 MG ORAL CAPSULE 1609779 DIPHENHYDRAMINE HCL Inactive ROCEPHIN 1 GM INJECTION SOLUTION RECONSTITUTED ROCEPHIN 1 GM INJECTION SOLUTION RECONSTITUTED 5898469 CEFTRIAXONE SODIUM Inactive SEROQUEL 100 MG ORAL TABLET SEROQUEL 100 MG ORAL TABLET 943777 QUETIAPINE FUMARATE Inactive TAMSULOSIN HCL 0.4 MG ORAL CAPSULE 1 cap 30min after the same meal each day, once a day TAMSULOSIN HCL 0.4 MG ORAL CAPSULE 883500 TAMSULOSIN HCL Inactive HUMIRA PEN 40 MG/0.8ML KIT 1 pen subcutaneous q 14 days HUMIRA PEN 40 MG/0.8ML KIT ADALIMUMAB Inactive KEFLEX 500 MG ORAL CAPSULE 1 tablet three times a day KEFLEX 500 MG ORAL CAPSULE 602369 CEPHALEXIN Inactive TAMSULOSIN HCL 0.4 MG ORAL CAPSULE 1 tab daily TAMSULOSIN HCL 0.4 MG ORAL CAPSULE 991892 TAMSULOSIN HCL Inactive Advance Directives Directive Description Start Date PERMISSION TO SHARE Vital Signs Date Name Value Unit Range Description blood pressure, diastolic 78 mm[Hg] BP dunne blood pressure, systolic 122 mm[Hg] BP sys temperature E&M 98.8 [degF] Body temperature weight E&M 224 [lb_av] Weight Measured Encounters Code Encounter Date Provider Facility CPT-95683 Level 3 Est. Patient 16:00:06 CDT Leonila Mckeon MD [facility] CPT-96929 Level 3 Est. Patient 02:50:42 CDT Leonila Mckeon MD [facility] CPT-92161 Level 3 Est. Patient 15:47:48 CDT Leonila Mckeon MD [facility] CPT-41878 Level 3 Est. Patient 18:22:46 CDT Leonila Mckeon MD [facility] CPT-47846 Level 3 Est. Patient 07:54:29 CDT Leonila Mckeon MD [facility] CPT-54960 Level 3 Est. Patient 19:49:47 CDT Leonila Mckeon MD [facility] CPT-05331 Level 3 Est. Patient 16:58:22 CDT Leonila Mckeon MD [facility] [place] Procedures Code Procedure Name Date Entry Date Standard Description CPT-43332 Bladder Scan 16:00:06 CDT CPT-07252 Abdomen, 1 view 15:23:45 CDT CPT-81210 Postop F/U Visit 17:25:50 CDT CPT-16432 Abd single AP View 13:20:43 CDT CPT-14371 Postop F/U Visit 15:06:29 CDT CPT-66673 Abd single AP View 08:57:17 CDT CPT-80636 Cystoscopy 19:49:47 CDT CPT-28971 Bladder Scan 19:49:47 CDT CPT-92861 Urine Dip (Floor Use Only) 16:58:22 CDT
--- OUTSIDE RECORDS SUMMARY | 2018-02-24 06:48 | XMS REPORT | Clinical Summary ---
Author Author Admin, E Organization [facility] [employer] [place] Address Unknown Phone Unavailable Allergies, Adverse Reactions, [...] and other lower urinary tract ( LUTS) Medication List Medication Instructions Start Date Stop Date Generic Name NDC Status Provider Patient Instruction TAMSULOSIN HCL 0.4 MG CAPS 1 cap 30min after the same meal each day, once a day TAMSULOSIN HCL 70255478375 No Longer Active Leonila Mckeon MD Active SEROQUEL 100 MG TABS QUETIAPINE FUMARATE 42907946366 No Longer Active Leonila Mckeon MD Active ROCEPHIN 1 GM INJ SOLR CEFTRIAXONE SODIUM 88249999785 No Longer Active Leonila Mckeon MD Active BENADRYL ALLERGY 25 MG CAPS 2 caps DIPHENHYDRAMINE HCL 21766787039 No Longer Active Leonila Mckeon MD Active COLACE 100 MG CAPS BID DOCUSATE SODIUM 58311918429 No Longer Active Leonila Mckeon MD Active PEPCID 40 MG TABS FAMOTIDINE 39727174246 No Longer Active Leonila Mckeon MD Active TAMSULOSIN HCL 0.4 MG CAPS 1 tab daily TAMSULOSIN HCL 90259175089 Active Leonila Mckeon MD Active METHOTREXATE SODIUM 25 MG/ML SOLN 1 ml injection 1 x weekly METHOTREXATE SODIUM 43141053480 No Longer Active Leonila Mckeon MD Active FLAGYL 500 MG TAB 1 tablet by mouth bid METRONIDAZOLE 93225175519 No Longer Active Leonila Mckeon MD Active KEFLEX 500 MG CAPS 1 tablet three times a day CEPHALEXIN 75039742287 No Longer Active Steph GORE Active HUMIRA PEN 40 MG/0.8ML KIT 1 pen subcutaneous q 14 days ADALIMUMAB 18744870157 No Longer Active Leonila Mckeon MD Active FLAGYL 500 MG TAB 1 tablet by mouth bid FLAGYL 500 MG TAB 341099 METRONIDAZOLE Inactive METHOTREXATE SODIUM 25 MG/ML SOLN 1 ml injection 1 x weekly METHOTREXATE SODIUM 25 MG/ML SOLN METHOTREXATE SODIUM Inactive PEPCID 40 MG TABS PEPCID 40 MG TABS 970706 FAMOTIDINE Inactive COLACE 100 MG CAPS BID COLACE 100 MG CAPS 9885423 DOCUSATE SODIUM Inactive BENADRYL ALLERGY 25 MG CAPS 2 caps BENADRYL ALLERGY 25 MG CAPS 4345087 DIPHENHYDRAMINE HCL Inactive ROCEPHIN 1 GM INJ SOLR ROCEPHIN 1 GM INJ SOLR 6609845 CEFTRIAXONE SODIUM Inactive SEROQUEL 100 MG TABS SEROQUEL 100 MG TABS 768999 QUETIAPINE FUMARATE Inactive TAMSULOSIN HCL 0.4 MG CAPS 1 cap 30min after the same meal each day, once a day TAMSULOSIN HCL 0.4 MG CAPS 693407 TAMSULOSIN HCL Inactive HUMIRA PEN 40 MG/0.8ML KIT 1 pen subcutaneous q 14 days HUMIRA PEN 40 MG/0.8ML KIT ADALIMUMAB Inactive KEFLEX 500 MG CAPS 1 tablet three times a day KEFLEX 500 MG CAPS 836164 CEPHALEXIN Inactive Advance Directives Directive Description Start Date PERMISSION TO SHARE Vital Signs Date Name Value Unit Range Description blood pressure, diastolic - 8462-4 75 mm[Hg] BP dunne blood pressure, systolic - 8480-6 120 mm[Hg] BP sys pulse rate E&M - 8867-4 70 /min Heart rate temperature E&M 97.6 [degF] Body temperature weight E&M - 3141-9 230 [lb_av] Weight Measured Diagnostic Results Date Name Value Unit Range Description Clinical Summary: Nurse Note - Chemistry RBC, urine, dipstick 1+ protein, total urine random negative mg/dL Clinical Summary: Nurse Note - Urinalysis pH, urine, semiquantitative 5 specific gravity, urine 1.005 urinalysis, routine Clean Catch culture status Yes ketones, urine, by test strip negative bilirubin, urine negative glucose, urine, semiquantitative negative urine color yellow appearance, urine clear leukocyte esterase, urine, by dipstick 2+ nitrite, urine, semiquantitative negative urobilinogen, urine, semiquantitative (dipstick) 0.2 protein, urine, semiquantitative (dipstick) negative Office Visit: Follow up tamsulosin - Chemistry protein, total urine random negative mg/dL RBC, urine, dipstick 1+ Office Visit: Follow up tamsulosin - Urinalysis ketones, urine, by test strip negative bilirubin, urine negative glucose, urine, semiquantitative negative urine color yellow appearance, urine clear leukocyte esterase, urine, by dipstick 1+ nitrite, urine, semiquantitative negative urobilinogen, urine, semiquantitative (dipstick) negative protein, urine, semiquantitative (dipstick) negative pH, urine, semiquantitative 5 specific gravity, urine 1.005 urinalysis, routine Clean Catch culture status No Encounters Code Encounter Date Provider Facility CPT-94282 Level 3 Est. Patient 15:47:48 CDT Leonila Mckeon MD [facility] CPT-78307 Level 3 Est. Patient 18:22:46 CDT Leonila Mckeon MD [facility]-67271 Level 3 Est. Patient 07:54:29 CDT Leonila Mckeon MD [facility]-69273 Level 3 Est. Patient 19:49:47 CDT Leonila Mckeon MD [facility] CPT-97230 Level 3 Est. Patient 16:58:22 CDT Leonila Mckeon MD [facility] Procedures Code Procedure Name Date Entry Date Standard Description CPT-35290 Abd single AP View 13:20:43 CDT CPT-35331 Postop F/U Visit 15:06:29 CDT CPT-80812 Abd single AP View 08:57:17 CDT CPT-43872 Cystoscopy 19:49:47 CDT CPT-50575 Bladder Scan 19:49:47 CDT CPT-45680 Urine Dip (Floor Use Only) 16:58:22 CDT
--- OUTSIDE RECORDS SUMMARY | 2018-02-24 06:48 | XMS REPORT | Clinical Summary ---
Author Author Admin, E Organization [facility] Address Unknown Phone Unavailable Allergies, Adverse Reactions, [...] 1 tablet by mouth daily LEVOTHYROXINE SODIUM 36106589581 Active Leonila Mckeon MD Active TAMSULOSIN HCL 0.4 MG ORAL CAPSULE Take one tablet daily TAMSULOSIN HCL 54516757787 Active Yvonne Brown Active TAMSULOSIN HCL 0.4 MG ORAL CAPSULE 1 cap 30min after the same meal each day, once a day TAMSULOSIN HCL 31461923448 No Longer Active Leonila Mckeon MD Active SEROQUEL 100 MG ORAL TABLET QUETIAPINE FUMARATE 99012280037 No Longer Active Leonila Mckeon MD Active ROCEPHIN 1 GM INJECTION SOLUTION RECONSTITUTED CEFTRIAXONE SODIUM 89476874749 No Longer Active Leonila Mckeon MD Active BENADRYL ALLERGY 25 MG ORAL CAPSULE 2 caps DIPHENHYDRAMINE HCL 35215693126 No Longer Active Leonila Mckeon MD Active COLACE 100 MG ORAL CAPSULE BID DOCUSATE SODIUM 85188575503 No Longer Active Leonila Mckeon MD Active PEPCID 40 MG ORAL TABLET FAMOTIDINE 12602057545 No Longer Active Leonila Mckeon MD Active TAMSULOSIN HCL 0.4 MG ORAL CAPSULE 1 tab daily TAMSULOSIN HCL 87694160288 No Longer Active Leonila Mckeon MD Active METHOTREXATE SODIUM 25 MG/ML SOLN 1 ml injection 1 x weekly METHOTREXATE SODIUM 79248105679 No Longer Active Leonila Mckeon MD Active FLAGYL 500 MG ORAL TABLET 1 tablet by mouth bid METRONIDAZOLE 06155896976 No Longer Active Leonila Mckeon MD Active KEFLEX 500 MG ORAL CAPSULE 1 tablet three times a day CEPHALEXIN 71912512332 No Longer Active Steph GORE Active HUMIRA PEN 40 MG/0.8ML KIT 1 pen subcutaneous q 14 days ADALIMUMAB 75557153289 No Longer Active Leonila Mckeon MD Active FLAGYL 500 MG ORAL TABLET 1 tablet by mouth bid FLAGYL 500 MG ORAL TABLET 037697 METRONIDAZOLE Inactive METHOTREXATE SODIUM 25 MG/ML SOLN 1 ml injection 1 x weekly METHOTREXATE SODIUM 25 MG/ML SOLN METHOTREXATE SODIUM Inactive PEPCID 40 MG ORAL TABLET PEPCID 40 MG ORAL TABLET 172416 FAMOTIDINE Inactive COLACE 100 MG ORAL CAPSULE BID COLACE 100 MG ORAL CAPSULE 9433848 DOCUSATE SODIUM Inactive BENADRYL ALLERGY 25 MG ORAL CAPSULE 2 caps BENADRYL ALLERGY 25 MG ORAL CAPSULE 1666765 DIPHENHYDRAMINE HCL Inactive ROCEPHIN 1 GM INJECTION SOLUTION RECONSTITUTED ROCEPHIN 1 GM INJECTION SOLUTION RECONSTITUTED 4141973 CEFTRIAXONE SODIUM Inactive SEROQUEL 100 MG ORAL TABLET SEROQUEL 100 MG ORAL TABLET 869987 QUETIAPINE FUMARATE Inactive TAMSULOSIN HCL 0.4 MG ORAL CAPSULE 1 cap 30min after the same meal each day, once a day TAMSULOSIN HCL 0.4 MG ORAL CAPSULE 886691 TAMSULOSIN HCL Inactive HUMIRA PEN 40 MG/0.8ML KIT 1 pen subcutaneous q 14 days HUMIRA PEN 40 MG/0.8ML KIT ADALIMUMAB Inactive KEFLEX 500 MG ORAL CAPSULE 1 tablet three times a day KEFLEX 500 MG ORAL CAPSULE 354987 CEPHALEXIN Inactive TAMSULOSIN HCL 0.4 MG ORAL CAPSULE 1 tab daily TAMSULOSIN HCL 0.4 MG ORAL CAPSULE 986915 TAMSULOSIN HCL Inactive Advance Directives Directive Description Start Date PERMISSION TO SHARE Vital Signs Date Name Value Unit Range Description blood pressure, diastolic 78 mm[Hg] BP dunne blood pressure, systolic 122 mm[Hg] BP sys temperature E&M 98.8 [degF] Body temperature weight E&M 224 [lb_av] Weight Measured Encounters Code Encounter Date Provider Facility CPT-44672 Level 3 Est. Patient 02:50:42 CDT Leonila Mckeon MD [facility] CPT-55084 Level 3 Est. Patient 15:47:48 CDT Leonila Mckeon MD [facility] CPT-88473 Level 3 Est. Patient 18:22:46 CDT Leonila Mckeon MD [facility] CPT-77668 Level 3 Est. Patient 07:54:29 CDT Leonila Mckeon MD [facility] CPT-39721 Level 3 Est. Patient 19:49:47 CDT Leonila Mckeon MD [facility] CPT-57641 Level 3 Est. Patient 16:58:22 CDT Leonila Mckeon MD [facility] Procedures Code Procedure Name Date Entry Date Standard Description CPT-98836 Abdomen, 1 view 15:23:45 CDT CPT-78655 Postop F/U Visit 17:25:50 CDT CPT-74807 Abd single AP View 13:20:43 CDT CPT-45393 Postop F/U Visit 15:06:29 CDT CPT-25595 Abd single AP View 08:57:17 CDT CPT-98751 Cystoscopy 19:49:47 CDT CPT-54863 Bladder Scan 19:49:47 CDT CPT-20422 Urine Dip (Floor Use Only) 16:58:22 CDT
--- OUTSIDE RECORDS SUMMARY | 2018-02-24 06:48 | XMS REPORT | Clinical Summary ---
Author Author Admin, E Organization [facility] [employer] Address Unknown Phone Unavailable Allergies, Adverse Reactions, [...] 1 tablet by mouth daily LEVOTHYROXINE SODIUM 05813890548 Active Leonila Mckeon MD Active TAMSULOSIN HCL 0.4 MG ORAL CAPSULE Take one tablet daily TAMSULOSIN HCL 29214210513 Active Yvonne Brown Active TAMSULOSIN HCL 0.4 MG ORAL CAPSULE 1 cap 30min after the same meal each day, once a day TAMSULOSIN HCL 81626144384 No Longer Active Leonila Mckeon MD Active SEROQUEL 100 MG ORAL TABLET QUETIAPINE FUMARATE 36508321793 No Longer Active Leonila Mckeon MD Active ROCEPHIN 1 GM INJECTION SOLUTION RECONSTITUTED CEFTRIAXONE SODIUM 80664251769 No Longer Active Leonila Mckeon MD Active BENADRYL ALLERGY 25 MG ORAL CAPSULE 2 caps DIPHENHYDRAMINE HCL 82939068831 No Longer Active Leonila Mckeon MD Active COLACE 100 MG ORAL CAPSULE BID DOCUSATE SODIUM 56942094447 No Longer Active Leonila Mckeon MD Active PEPCID 40 MG ORAL TABLET FAMOTIDINE 83119881044 No Longer Active Leonila Mckeon MD Active TAMSULOSIN HCL 0.4 MG ORAL CAPSULE 1 tab daily TAMSULOSIN HCL 11549650235 No Longer Active Leonila Mckeon MD Active METHOTREXATE SODIUM 25 MG/ML SOLN 1 ml injection 1 x weekly METHOTREXATE SODIUM 83211715216 No Longer Active Leonila Mckeon MD Active FLAGYL 500 MG ORAL TABLET 1 tablet by mouth bid METRONIDAZOLE 83117873408 No Longer Active Leonila Mckeon MD Active KEFLEX 500 MG ORAL CAPSULE 1 tablet three times a day CEPHALEXIN 11919819105 No Longer Active Steph GORE Active HUMIRA PEN 40 MG/0.8ML KIT 1 pen subcutaneous q 14 days ADALIMUMAB 51955080228 No Longer Active Leonila Mckeon MD Active FLAGYL 500 MG ORAL TABLET 1 tablet by mouth bid FLAGYL 500 MG ORAL TABLET 364025 METRONIDAZOLE Inactive METHOTREXATE SODIUM 25 MG/ML SOLN 1 ml injection 1 x weekly METHOTREXATE SODIUM 25 MG/ML SOLN METHOTREXATE SODIUM Inactive PEPCID 40 MG ORAL TABLET PEPCID 40 MG ORAL TABLET 879399 FAMOTIDINE Inactive COLACE 100 MG ORAL CAPSULE BID COLACE 100 MG ORAL CAPSULE 9788760 DOCUSATE SODIUM Inactive BENADRYL ALLERGY 25 MG ORAL CAPSULE 2 caps BENADRYL ALLERGY 25 MG ORAL CAPSULE 0196566 DIPHENHYDRAMINE HCL Inactive ROCEPHIN 1 GM INJECTION SOLUTION RECONSTITUTED ROCEPHIN 1 GM INJECTION SOLUTION RECONSTITUTED 6311161 CEFTRIAXONE SODIUM Inactive SEROQUEL 100 MG ORAL TABLET SEROQUEL 100 MG ORAL TABLET 495236 QUETIAPINE FUMARATE Inactive TAMSULOSIN HCL 0.4 MG ORAL CAPSULE 1 cap 30min after the same meal each day, once a day TAMSULOSIN HCL 0.4 MG ORAL CAPSULE 401587 TAMSULOSIN HCL Inactive HUMIRA PEN 40 MG/0.8ML KIT 1 pen subcutaneous q 14 days HUMIRA PEN 40 MG/0.8ML KIT ADALIMUMAB Inactive KEFLEX 500 MG ORAL CAPSULE 1 tablet three times a day KEFLEX 500 MG ORAL CAPSULE 574180 CEPHALEXIN Inactive TAMSULOSIN HCL 0.4 MG ORAL CAPSULE 1 tab daily TAMSULOSIN HCL 0.4 MG ORAL CAPSULE 031531 TAMSULOSIN HCL Inactive Advance Directives Directive Description Start Date PERMISSION TO SHARE Vital Signs Date Name Value Unit Range Description blood pressure, diastolic 78 mm[Hg] BP dunne blood pressure, systolic 122 mm[Hg] BP sys temperature E&M 98.8 [degF] Body temperature weight E&M 224 [lb_av] Weight Measured Encounters Code Encounter Date Provider Facility CPT-27002 Level 3 Est. Patient 16:00:06 CDT Leonila Mcekon MD [facility] CPT-31241 Level 3 Est. Patient 02:50:42 CDT Leonila Mckeon MD [facility] CPT-69960 Level 3 Est. Patient 15:47:48 CDT Leonila Mckeon MD [facility] CPT-44471 Level 3 Est. Patient 18:22:46 CDT Leonila Mckeon MD [facility] CPT-46383 Level 3 Est. Patient 07:54:29 CDT Leonila Mckeon MD [facility] CPT-67289 Level 3 Est. Patient 19:49:47 CDT Leonila Mckeon MD [facility] CPT-56036 Level 3 Est. Patient 16:58:22 CDT Leonila Mckeon MD [facility] [place] Procedures Code Procedure Name Date Entry Date Standard Description CPT-93812 Bladder Scan 16:00:06 CDT CPT-31575 Abdomen, 1 view 15:23:45 CDT CPT-71267 Postop F/U Visit 17:25:50 CDT CPT-70909 Abd single AP View 13:20:43 CDT CPT-25931 Postop F/U Visit 15:06:29 CDT CPT-37264 Abd single AP View 08:57:17 CDT CPT-92125 Cystoscopy 19:49:47 CDT CPT-09901 Bladder Scan 19:49:47 CDT CPT-29638 Urine Dip (Floor Use Only) 16:58:22 CDT
--- OUTSIDE RECORDS SUMMARY | 2018-02-24 06:49 | XMS REPORT | Clinical Summary ---
Author Author Admin, E Organization [facility] Address Unknown Phone Unavailable Allergies, Adverse [...] Name NDC Status Provider Patient Instruction SYNTHROID 0.2 MG TAB 1 tablet by mouth daily LEVOTHYROXINE SODIUM 17308051235 Active Leonila Mckeon MD Active TAMSULOSIN HCL 0.4 MG CAPS Take one tablet daily TAMSULOSIN HCL 30355887036 Active Yvonne Brown Active TAMSULOSIN HCL 0.4 MG CAPS 1 cap 30min after the same meal each day, once a day TAMSULOSIN HCL 20605409577 No Longer Active Leonila Mckeon MD Active SEROQUEL 100 MG TABS QUETIAPINE FUMARATE 30093746601 No Longer Active Leonila Mckeon MD Active ROCEPHIN 1 GM INJ SOLR CEFTRIAXONE SODIUM 68709795857 No Longer Active Leonila Mckeon MD Active BENADRYL ALLERGY 25 MG CAPS 2 caps DIPHENHYDRAMINE HCL 59006937474 No Longer Active Leonila Mckeon MD Active COLACE 100 MG CAPS BID DOCUSATE SODIUM 34584051929 No Longer Active Leonila Mckeon MD Active PEPCID 40 MG TABS FAMOTIDINE 98635439819 No Longer Active Leonila Mckeon MD Active TAMSULOSIN HCL 0.4 MG CAPS 1 tab daily TAMSULOSIN HCL 36145774254 No Longer Active Leonila Mckeon MD Active METHOTREXATE SODIUM 25 MG/ML SOLN 1 ml injection 1 x weekly METHOTREXATE SODIUM 85542748269 No Longer Active Leonila Mckeon MD Active FLAGYL 500 MG TAB 1 tablet by mouth bid METRONIDAZOLE 15107474317 No Longer Active Leonila Mckeon MD Active KEFLEX 500 MG CAPS 1 tablet three times a day CEPHALEXIN 88371125552 No Longer Active Steph GORE Active HUMIRA PEN 40 MG/0.8ML KIT 1 pen subcutaneous q 14 days ADALIMUMAB 43447250849 No Longer Active Leonila Mckeon MD Active FLAGYL 500 MG TAB 1 tablet by mouth bid FLAGYL 500 MG TAB 177846 METRONIDAZOLE Inactive METHOTREXATE SODIUM 25 MG/ML SOLN 1 ml injection 1 x weekly METHOTREXATE SODIUM 25 MG/ML SOLN METHOTREXATE SODIUM Inactive PEPCID 40 MG TABS PEPCID 40 MG TABS 579313 FAMOTIDINE Inactive COLACE 100 MG CAPS BID COLACE 100 MG CAPS 7024181 DOCUSATE SODIUM Inactive BENADRYL ALLERGY 25 MG CAPS 2 caps BENADRYL ALLERGY 25 MG CAPS 2385015 DIPHENHYDRAMINE HCL Inactive ROCEPHIN 1 GM INJ SOLR ROCEPHIN 1 GM INJ SOLR 5292039 CEFTRIAXONE SODIUM Inactive SEROQUEL 100 MG TABS SEROQUEL 100 MG TABS 327198 QUETIAPINE FUMARATE Inactive TAMSULOSIN HCL 0.4 MG CAPS 1 cap 30min after the same meal each day, once a day TAMSULOSIN HCL 0.4 MG CAPS 174021 TAMSULOSIN HCL Inactive HUMIRA PEN 40 MG/0.8ML KIT 1 pen subcutaneous q 14 days HUMIRA PEN 40 MG/0.8ML KIT ADALIMUMAB Inactive KEFLEX 500 MG CAPS 1 tablet three times a day KEFLEX 500 MG CAPS 234315 CEPHALEXIN Inactive TAMSULOSIN HCL 0.4 MG CAPS 1 tab daily TAMSULOSIN HCL 0.4 MG CAPS 935376 TAMSULOSIN HCL Inactive Advance Directives Directive Description Start Date PERMISSION TO SHARE Vital Signs Date Name Value Unit Range Description blood pressure, diastolic 78 mm[Hg] BP dunne blood pressure, systolic 122 mm[Hg] BP sys temperature E&M 98.8 [degF] Body temperature weight E&M 224 [lb_av] Weight Measured blood pressure, diastolic 70 mm[Hg] BP dunne blood pressure, systolic 115 mm[Hg] BP sys pulse rate E&M 70 /min Heart rate temperature E&M 98.1 [degF] Body temperature weight E&M 229 [lb_av] Weight Measured Encounters Code Encounter Date Provider Facility CPT-87817 Level 3 Est. Patient 02:50:42 CDT Leonila Mckeon MD [facility] CPT-89639 Level 3 Est. Patient 15:47:48 CDT Leonila Mckeon MD [facility] CPT-40203 Level 3 Est. Patient 18:22:46 CDT Leonila Mckeon MD [facility] CPT-21771 Level 3 Est. Patient 07:54:29 CDT Leonila Mckeon MD [facility] CPT-79356 Level 3 Est. Patient 19:49:47 CDT Leonila Mckeon MD [facility] CPT-44970 Level 3 Est. Patient 16:58:22 CDT Leonila Mckeon MD [facility] Procedures Code Procedure Name Date Entry Date Standard Description CPT-98783 Postop F/U Visit 17:25:50 CDT CPT-46635 Abd single AP View 13:20:43 CDT CPT-89843 Postop F/U Visit 15:06:29 CDT CPT-44555 Abd single AP View 08:57:17 CDT CPT-46936 Cystoscopy 19:49:47 CDT CPT-13902 Bladder Scan 19:49:47 CDT CPT-98251 Urine Dip (Floor Use Only) 16:58:22 CDT
--- OUTSIDE RECORDS SUMMARY | 2018-02-24 06:49 | XMS REPORT | Clinical Summary ---
Author Author Admin, E Organization [facility] Address Unknown Phone Unavailable Allergies, Adverse Reactions, [...] 1 tablet by mouth daily LEVOTHYROXINE SODIUM 45577244881 Active Leonila Mckeon MD Active TAMSULOSIN HCL 0.4 MG CAPS Take one tablet daily TAMSULOSIN HCL 97367601623 Active Yvonne Brown Active TAMSULOSIN HCL 0.4 MG CAPS 1 cap 30min after the same meal each day, once a day TAMSULOSIN HCL 63663455022 No Longer Active Leonila Mckeon MD Active SEROQUEL 100 MG TABS QUETIAPINE FUMARATE 73681723204 No Longer Active Leonila Mckeon MD Active ROCEPHIN 1 GM INJ SOLR CEFTRIAXONE SODIUM 92100283091 No Longer Active Leonila Mckeon MD Active BENADRYL ALLERGY 25 MG CAPS 2 caps DIPHENHYDRAMINE HCL 73461139057 No Longer Active Leonila Mckeon MD Active COLACE 100 MG CAPS BID DOCUSATE SODIUM 20380769775 No Longer Active Leonila Mckeon MD Active PEPCID 40 MG TABS FAMOTIDINE 84802074410 No Longer Active Leonila Mckeon MD Active TAMSULOSIN HCL 0.4 MG CAPS 1 tab daily TAMSULOSIN HCL 81288019993 No Longer Active Leonila Mckeon MD Active METHOTREXATE SODIUM 25 MG/ML SOLN 1 ml injection 1 x weekly METHOTREXATE SODIUM 88948337277 No Longer Active Leonila Mckeon MD Active FLAGYL 500 MG TAB 1 tablet by mouth bid METRONIDAZOLE 88928163048 No Longer Active Leonila Mckeon MD Active KEFLEX 500 MG CAPS 1 tablet three times a day CEPHALEXIN 11480494014 No Longer Active Steph GORE Active HUMIRA PEN 40 MG/0.8ML KIT 1 pen subcutaneous q 14 days ADALIMUMAB 15682025774 No Longer Active Leonila Mckeon MD Active FLAGYL 500 MG TAB 1 tablet by mouth bid FLAGYL 500 MG TAB 094006 METRONIDAZOLE Inactive METHOTREXATE SODIUM 25 MG/ML SOLN 1 ml injection 1 x weekly METHOTREXATE SODIUM 25 MG/ML SOLN METHOTREXATE SODIUM Inactive PEPCID 40 MG TABS PEPCID 40 MG TABS 621030 FAMOTIDINE Inactive COLACE 100 MG CAPS BID COLACE 100 MG CAPS 8014739 DOCUSATE SODIUM Inactive BENADRYL ALLERGY 25 MG CAPS 2 caps BENADRYL ALLERGY 25 MG CAPS 2784651 DIPHENHYDRAMINE HCL Inactive ROCEPHIN 1 GM INJ SOLR ROCEPHIN 1 GM INJ SOLR 1067367 CEFTRIAXONE SODIUM Inactive SEROQUEL 100 MG TABS SEROQUEL 100 MG TABS 849250 QUETIAPINE FUMARATE Inactive TAMSULOSIN HCL 0.4 MG CAPS 1 cap 30min after the same meal each day, once a day TAMSULOSIN HCL 0.4 MG CAPS 987556 TAMSULOSIN HCL Inactive HUMIRA PEN 40 MG/0.8ML KIT 1 pen subcutaneous q 14 days HUMIRA PEN 40 MG/0.8ML KIT ADALIMUMAB Inactive KEFLEX 500 MG CAPS 1 tablet three times a day KEFLEX 500 MG CAPS 538215 CEPHALEXIN Inactive TAMSULOSIN HCL 0.4 MG CAPS 1 tab daily TAMSULOSIN HCL 0.4 MG CAPS 712849 TAMSULOSIN HCL Inactive Advance Directives Directive Description [...] Measured Encounters Code Encounter Date Provider Facility CPT-42956 Level 3 Est. Patient 02:50:42 CDT Leonila Mckeon MD [facility] CPT-14218 Level 3 Est. Patient 15:47:48 CDT Leonila Mckeon MD [facility] CPT-50699 Level 3 Est. Patient 18:22:46 CDT Leonila Mckeon MD [facility] CPT-42059 Level 3 Est. Patient 07:54:29 CDT Leonila Mckeon MD [facility] CPT-11296 Level 3 Est. Patient 19:49:47 CDT Leonila Mckeon MD [facility] CPT-48290 Level 3 Est. Patient 16:58:22 CDT Leonila Mckeon MD [facility] [place] Procedures Code Procedure Name Date Entry Date Standard Description CPT-78280 Postop F/U Visit 17:25:50 CDT CPT-29512 Abd single AP View 13:20:43 CDT CPT-14508 Postop F/U Visit 15:06:29 CDT CPT-85350 Abd single AP View 08:57:17 CDT CPT-82211 Cystoscopy 19:49:47 CDT CPT-53404 Bladder Scan 19:49:47 CDT CPT-13643 Urine Dip (Floor Use Only) 16:58:22 CDT
--- OUTSIDE RECORDS SUMMARY | 2018-02-24 06:49 | XMS REPORT | Clinical Summary ---
Author Author Admin, E Organization [facility] [employer] [place] Address Unknown Phone Unavailable Allergies, Adverse Reactions, [...] each day, once a day TAMSULOSIN HCL 82256532920 No Longer Active Leonila Mckeon MD Active SEROQUEL 100 MG TABS QUETIAPINE FUMARATE 52185623133 No Longer Active Leonila Mckeon MD Active ROCEPHIN 1 GM INJ SOLR CEFTRIAXONE SODIUM 89093774445 No Longer Active Leonila Mckeon MD Active BENADRYL ALLERGY 25 MG CAPS 2 caps DIPHENHYDRAMINE HCL 18775501297 No Longer Active Leonila Mckeon MD Active COLACE 100 MG CAPS BID DOCUSATE SODIUM 77314853591 No Longer Active Leonila Mckeon MD Active PEPCID 40 MG TABS FAMOTIDINE 65689691074 No Longer Active Leonila Mckeon MD Active TAMSULOSIN HCL 0.4 MG CAPS 1 tab daily TAMSULOSIN HCL 98671606882 Active Leonila Mckeon MD Active METHOTREXATE SODIUM 25 MG/ML SOLN 1 ml injection 1 x weekly METHOTREXATE SODIUM 07481694003 No Longer Active Leonila Mckeon MD Active FLAGYL 500 MG TAB 1 tablet by mouth bid METRONIDAZOLE 38349401221 No Longer Active Leonlia Mckeon MD Active KEFLEX 500 MG CAPS 1 tablet three times a day CEPHALEXIN 68455790602 No Longer Active Steph GORE Active HUMIRA PEN 40 MG/0.8ML KIT 1 pen subcutaneous q 14 days ADALIMUMAB 61093461298 No Longer Active Leonila Mckeon MD Active FLAGYL 500 MG TAB 1 tablet by mouth bid FLAGYL 500 MG TAB 250656 METRONIDAZOLE Inactive METHOTREXATE SODIUM 25 MG/ML SOLN 1 ml injection 1 x weekly METHOTREXATE SODIUM 25 MG/ML SOLN METHOTREXATE SODIUM Inactive PEPCID 40 MG TABS PEPCID 40 MG TABS 582983 FAMOTIDINE Inactive COLACE 100 MG CAPS BID COLACE 100 MG CAPS 6442128 DOCUSATE SODIUM Inactive BENADRYL ALLERGY 25 MG CAPS 2 caps BENADRYL ALLERGY 25 MG CAPS 6157754 DIPHENHYDRAMINE HCL Inactive ROCEPHIN 1 GM INJ SOLR ROCEPHIN 1 GM INJ SOLR 7049468 CEFTRIAXONE SODIUM Inactive SEROQUEL 100 MG TABS SEROQUEL 100 MG TABS 958796 QUETIAPINE FUMARATE Inactive TAMSULOSIN HCL 0.4 MG CAPS 1 cap 30min after the same meal each day, once a day TAMSULOSIN HCL 0.4 MG CAPS 139597 TAMSULOSIN HCL Inactive HUMIRA PEN 40 MG/0.8ML KIT 1 pen subcutaneous q 14 days HUMIRA PEN 40 MG/0.8ML KIT ADALIMUMAB Inactive KEFLEX 500 MG CAPS 1 tablet three times a day KEFLEX 500 MG CAPS 048573 CEPHALEXIN Inactive Advance Directives Directive Description Start [...] No Encounters Code Encounter Date Provider Facility CPT-23870 Level 3 Est. Patient 15:47:48 CDT Leonila Mckeon MD [facility] CPT-00101 Level 3 Est. Patient 18:22:46 CDT Leonila Mckeon MD [facility]-82810 Level 3 Est. Patient 07:54:29 CDT Leonila Mckeon MD [facility]-53560 Level 3 Est. Patient 19:49:47 CDT Leonila Mckeon MD [facility] CPT-58122 Level 3 Est. Patient 16:58:22 CDT Leonila Mckeon MD [facility] Procedures Code Procedure Name Date Entry Date Standard Description CPT-28776 Abd single AP View 13:20:43 CDT CPT-85906 Postop F/U Visit 15:06:29 CDT CPT-00845 Abd single AP View 08:57:17 CDT CPT-36573 Cystoscopy 19:49:47 CDT CPT-25228 Bladder Scan 19:49:47 CDT CPT-04926 Urine Dip (Floor Use Only) 16:58:22 CDT
--- OUTSIDE RECORDS SUMMARY | 2018-02-24 06:50 | XMS REPORT | Clinical Summary ---
Author Author Admin, E Organization [facility] Address Unknown Phone Unavailable Allergies, Adverse Reactions, [...] 1 tablet by mouth daily LEVOTHYROXINE SODIUM 62817813373 Active Leonila Mckeon MD Active TAMSULOSIN HCL 0.4 MG CAPS Take one tablet daily TAMSULOSIN HCL 69002301773 Active Yvonne Brown Active TAMSULOSIN HCL 0.4 MG CAPS 1 cap 30min after the same meal each day, once a day TAMSULOSIN HCL 60115181098 No Longer Active Leonila Mckeon MD Active SEROQUEL 100 MG TABS QUETIAPINE FUMARATE 34813346349 No Longer Active Leonila Mckeon MD Active ROCEPHIN 1 GM INJ SOLR CEFTRIAXONE SODIUM 76536593121 No Longer Active Leonila Mckeon MD Active BENADRYL ALLERGY 25 MG CAPS 2 caps DIPHENHYDRAMINE HCL 15555313251 No Longer Active Leonila Mckeon MD Active COLACE 100 MG CAPS BID DOCUSATE SODIUM 56788868209 No Longer Active Leonila Mckeon MD Active PEPCID 40 MG TABS FAMOTIDINE 56627537443 No Longer Active Leonila Mckeon MD Active TAMSULOSIN HCL 0.4 MG CAPS 1 tab daily TAMSULOSIN HCL 92546703800 No Longer Active Leonila Mckeon MD Active METHOTREXATE SODIUM 25 MG/ML SOLN 1 ml injection 1 x weekly METHOTREXATE SODIUM 82849442021 No Longer Active Leonila Mckeon MD Active FLAGYL 500 MG TAB 1 tablet by mouth bid METRONIDAZOLE 83659504751 No Longer Active Leonila Mckeon MD Active KEFLEX 500 MG CAPS 1 tablet three times a day CEPHALEXIN 20547481588 No Longer Active Steph GORE Active HUMIRA PEN 40 MG/0.8ML KIT 1 pen subcutaneous q 14 days ADALIMUMAB 20845082454 No Longer Active Leonila Mckeon MD Active FLAGYL 500 MG TAB 1 tablet by mouth bid FLAGYL 500 MG TAB 699440 METRONIDAZOLE Inactive METHOTREXATE SODIUM 25 MG/ML SOLN 1 ml injection 1 x weekly METHOTREXATE SODIUM 25 MG/ML SOLN METHOTREXATE SODIUM Inactive PEPCID 40 MG TABS PEPCID 40 MG TABS 517706 FAMOTIDINE Inactive COLACE 100 MG CAPS BID COLACE 100 MG CAPS 2853775 DOCUSATE SODIUM Inactive BENADRYL ALLERGY 25 MG CAPS 2 caps BENADRYL ALLERGY 25 MG CAPS 1639335 DIPHENHYDRAMINE HCL Inactive ROCEPHIN 1 GM INJ SOLR ROCEPHIN 1 GM INJ SOLR 6054920 CEFTRIAXONE SODIUM Inactive SEROQUEL 100 MG TABS SEROQUEL 100 MG TABS 114970 QUETIAPINE FUMARATE Inactive TAMSULOSIN HCL 0.4 MG CAPS 1 cap 30min after the same meal each day, once a day TAMSULOSIN HCL 0.4 MG CAPS 903440 TAMSULOSIN HCL Inactive HUMIRA PEN 40 MG/0.8ML KIT 1 pen subcutaneous q 14 days HUMIRA PEN 40 MG/0.8ML KIT ADALIMUMAB Inactive KEFLEX 500 MG CAPS 1 tablet three times a day KEFLEX 500 MG CAPS 849046 CEPHALEXIN Inactive TAMSULOSIN HCL 0.4 MG CAPS 1 tab daily TAMSULOSIN HCL 0.4 MG CAPS 390402 TAMSULOSIN HCL Inactive Advance Directives Directive Description [...] Measured Encounters Code Encounter Date Provider Facility CPT-97121 Level 3 Est. Patient 02:50:42 CDT Leonila Mckeon MD [facility] CPT-32207 Level 3 Est. Patient 15:47:48 CDT Leonila Mckeon MD [facility] CPT-88047 Level 3 Est. Patient 18:22:46 CDT Leonila Mckeon MD [facility] CPT-40853 Level 3 Est. Patient 07:54:29 CDT Leonila Mckeon MD [facility] CPT-26569 Level 3 Est. Patient 19:49:47 CDT Leonila Mckeon MD [facility] CPT-60930 Level 3 Est. Patient 16:58:22 CDT Leonila Mckeon MD [facility] [place] Procedures Code Procedure Name Date Entry Date Standard Description CPT-20770 Postop F/U Visit 17:25:50 CDT CPT-96862 Abd single AP View 13:20:43 CDT CPT-05163 Postop F/U Visit 15:06:29 CDT CPT-69167 Abd single AP View 08:57:17 CDT CPT-41322 Cystoscopy 19:49:47 CDT CPT-41333 Bladder Scan 19:49:47 CDT CPT-75125 Urine Dip (Floor Use Only) 16:58:22 CDT
--- OUTSIDE RECORDS SUMMARY | 2018-02-24 06:50 | XMS REPORT | Clinical Summary ---
Author Author Admin, E Organization [facility] Address Unknown Phone Unavailable Allergies, Adverse [...] Name NDC Status Provider Patient Instruction SYNTHROID 0.175 MG TAB 1 tablet by mouth daily LEVOTHYROXINE SODIUM 80109495127 Active Leonila Mckeon MD Active TAMSULOSIN HCL 0.4 MG CAPS Take one tablet daily TAMSULOSIN HCL 28896129423 Active Yvonne Brown Active TAMSULOSIN HCL 0.4 MG CAPS 1 cap 30min after the same meal each day, once a day TAMSULOSIN HCL 03837864346 No Longer Active Leonila Mckeon MD Active SEROQUEL 100 MG TABS QUETIAPINE FUMARATE 66063978969 No Longer Active Leonila Mckeon MD Active ROCEPHIN 1 GM INJ SOLR CEFTRIAXONE SODIUM 17437523970 No Longer Active Leonila Mckeon MD Active BENADRYL ALLERGY 25 MG CAPS 2 caps DIPHENHYDRAMINE HCL 42300942928 No Longer Active Leonila Mckeon MD Active COLACE 100 MG CAPS BID DOCUSATE SODIUM 23134740822 No Longer Active Leonila Mckeon MD Active PEPCID 40 MG TABS FAMOTIDINE 44985974955 No Longer Active Leonila Mckeon MD Active TAMSULOSIN HCL 0.4 MG CAPS 1 tab daily TAMSULOSIN HCL 46473717050 No Longer Active Leonila Mckeon MD Active METHOTREXATE SODIUM 25 MG/ML SOLN 1 ml injection 1 x weekly METHOTREXATE SODIUM 56921838253 No Longer Active Leonila Mckeon MD Active FLAGYL 500 MG TAB 1 tablet by mouth bid METRONIDAZOLE 61825041098 No Longer Active Leonila Mckeon MD Active KEFLEX 500 MG CAPS 1 tablet three times a day CEPHALEXIN 29954882802 No Longer Active Steph GORE Active HUMIRA PEN 40 MG/0.8ML KIT 1 pen subcutaneous q 14 days ADALIMUMAB 88173648360 No Longer Active Leonila Mckeon MD Active FLAGYL 500 MG TAB 1 tablet by mouth bid FLAGYL 500 MG TAB 332165 METRONIDAZOLE Inactive METHOTREXATE SODIUM 25 MG/ML SOLN 1 ml injection 1 x weekly METHOTREXATE SODIUM 25 MG/ML SOLN METHOTREXATE SODIUM Inactive PEPCID 40 MG TABS PEPCID 40 MG TABS 036776 FAMOTIDINE Inactive COLACE 100 MG CAPS BID COLACE 100 MG CAPS 3402781 DOCUSATE SODIUM Inactive BENADRYL ALLERGY 25 MG CAPS 2 caps BENADRYL ALLERGY 25 MG CAPS 0880422 DIPHENHYDRAMINE HCL Inactive ROCEPHIN 1 GM INJ SOLR ROCEPHIN 1 GM INJ SOLR 0456011 CEFTRIAXONE SODIUM Inactive SEROQUEL 100 MG TABS SEROQUEL 100 MG TABS 349280 QUETIAPINE FUMARATE Inactive TAMSULOSIN HCL 0.4 MG CAPS 1 cap 30min after the same meal each day, once a day TAMSULOSIN HCL 0.4 MG CAPS 060802 TAMSULOSIN HCL Inactive HUMIRA PEN 40 MG/0.8ML KIT 1 pen subcutaneous q 14 days HUMIRA PEN 40 MG/0.8ML KIT ADALIMUMAB Inactive KEFLEX 500 MG CAPS 1 tablet three times a day KEFLEX 500 MG CAPS 537524 CEPHALEXIN Inactive TAMSULOSIN HCL 0.4 MG CAPS 1 tab daily TAMSULOSIN HCL 0.4 MG CAPS 694800 TAMSULOSIN HCL Inactive Advance Directives Directive Description Start Date PERMISSION TO SHARE Vital Signs Date Name Value Unit Range Description blood pressure, diastolic 70 mm[Hg] BP dunne blood pressure, systolic 115 mm[Hg] BP sys pulse rate E&M 70 /min Heart rate temperature E&M 98.1 [degF] Body temperature weight E&M 229 [lb_av] Weight Measured Encounters Code Encounter Date Provider Facility CPT-72592 Level 3 Est. Patient 02:50:42 CDT Leonila Mckeon MD [facility] CPT-11031 Level 3 Est. Patient 15:47:48 CDT Leonila Mckeon MD [facility] CPT-12306 Level 3 Est. Patient 18:22:46 CDT Leonila Mckeon MD [facility] CPT-22461 Level 3 Est. Patient 07:54:29 CDT Leonila Mckeon MD [facility] CPT-89582 Level 3 Est. Patient 19:49:47 CDT Leonila Mckeon MD [facility] CPT-11822 Level 3 Est. Patient 16:58:22 CDT Leonila Mckeon MD [facility] Procedures Code Procedure Name Date Entry Date Standard Description CPT-56278 Abd single AP View 13:20:43 CDT CPT-55697 Postop F/U Visit 15:06:29 CDT CPT-62306 Abd single AP View 08:57:17 CDT CPT-10496 Cystoscopy 19:49:47 CDT CPT-31698 Bladder Scan 19:49:47 CDT CPT-38853 Urine Dip (Floor Use Only) 16:58:22 CDT
--- OUTSIDE RECORDS SUMMARY | 2018-02-24 06:50 | XMS REPORT | Clinical Summary ---
Author Author Admin, E Organization [facility] [employer] [place] Address Unknown Phone Unavailable Allergies, Adverse Reactions, [...] each day, once a day TAMSULOSIN HCL 69839108581 No Longer Active Leonila Mckeon MD Active SEROQUEL 100 MG TABS QUETIAPINE FUMARATE 22928131391 No Longer Active Leonila Mckeon MD Active ROCEPHIN 1 GM INJ SOLR CEFTRIAXONE SODIUM 65605989275 No Longer Active Leonila Mckeon MD Active BENADRYL ALLERGY 25 MG CAPS 2 caps DIPHENHYDRAMINE HCL 58948167492 No Longer Active Leonila Mckeon MD Active COLACE 100 MG CAPS BID DOCUSATE SODIUM 12562109071 No Longer Active Leonila Mckeon MD Active PEPCID 40 MG TABS FAMOTIDINE 76882002970 No Longer Active Leonila Mckeon MD Active TAMSULOSIN HCL 0.4 MG CAPS 1 tab daily TAMSULOSIN HCL 16123562150 Active Lenoila Mckeon MD Active METHOTREXATE SODIUM 25 MG/ML SOLN 1 ml injection 1 x weekly METHOTREXATE SODIUM 86623531111 No Longer Active Leonila Mckeon MD Active FLAGYL 500 MG TAB 1 tablet by mouth bid METRONIDAZOLE 21499132371 No Longer Active Leonila Mckeon MD Active KEFLEX 500 MG CAPS 1 tablet three times a day CEPHALEXIN 32029148226 No Longer Active Steph GORE Active HUMIRA PEN 40 MG/0.8ML KIT 1 pen subcutaneous q 14 days ADALIMUMAB 24972772874 No Longer Active Leonila Mckeon MD Active FLAGYL 500 MG TAB 1 tablet by mouth bid FLAGYL 500 MG TAB 524416 METRONIDAZOLE Inactive METHOTREXATE SODIUM 25 MG/ML SOLN 1 ml injection 1 x weekly METHOTREXATE SODIUM 25 MG/ML SOLN METHOTREXATE SODIUM Inactive PEPCID 40 MG TABS PEPCID 40 MG TABS 211424 FAMOTIDINE Inactive COLACE 100 MG CAPS BID COLACE 100 MG CAPS 8413824 DOCUSATE SODIUM Inactive BENADRYL ALLERGY 25 MG CAPS 2 caps BENADRYL ALLERGY 25 MG CAPS 9886806 DIPHENHYDRAMINE HCL Inactive ROCEPHIN 1 GM INJ SOLR ROCEPHIN 1 GM INJ SOLR 7097092 CEFTRIAXONE SODIUM Inactive SEROQUEL 100 MG TABS SEROQUEL 100 MG TABS 957987 QUETIAPINE FUMARATE Inactive TAMSULOSIN HCL 0.4 MG CAPS 1 cap 30min after the same meal each day, once a day TAMSULOSIN HCL 0.4 MG CAPS 762843 TAMSULOSIN HCL Inactive HUMIRA PEN 40 MG/0.8ML KIT 1 pen subcutaneous q 14 days HUMIRA PEN 40 MG/0.8ML KIT ADALIMUMAB Inactive KEFLEX 500 MG CAPS 1 tablet three times a day KEFLEX 500 MG CAPS 544247 CEPHALEXIN Inactive Advance Directives Directive Description Start [...] No Encounters Code Encounter Date Provider Facility CPT-60342 Level 3 Est. Patient 15:47:48 CDT Leonila Mckeon MD [facility] CPT-93403 Level 3 Est. Patient 18:22:46 CDT Leonila Mckeon MD [facility]-24384 Level 3 Est. Patient 07:54:29 CDT Leonila Mckeon MD [facility]-72169 Level 3 Est. Patient 19:49:47 CDT Leonila Mckeon MD [facility] CPT-06824 Level 3 Est. Patient 16:58:22 CDT Leonila Mckeon MD [facility] Procedures Code Procedure Name Date Entry Date Standard Description CPT-62179 Abd single AP View 13:20:43 CDT CPT-87262 Postop F/U Visit 15:06:29 CDT CPT-46765 Abd single AP View 08:57:17 CDT CPT-21283 Cystoscopy 19:49:47 CDT CPT-02454 Bladder Scan 19:49:47 CDT CPT-31274 Urine Dip (Floor Use Only) 16:58:22 CDT
--- OUTSIDE RECORDS SUMMARY | 2018-02-24 06:50 | XMS REPORT | Clinical Summary ---
Author Author Admin, E Organization [facility] Address Unknown Phone Unavailable Allergies, Adverse [...] 1 tablet by mouth daily LEVOTHYROXINE SODIUM 63003339151 Active Leonila Mckeon MD Active TAMSULOSIN HCL 0.4 MG CAPS Take one tablet daily TAMSULOSIN HCL 42802198848 Active Yvonne Brown Active TAMSULOSIN HCL 0.4 MG CAPS 1 cap 30min after the same meal each day, once a day TAMSULOSIN HCL 90872576487 No Longer Active Leonila Mckeon MD Active SEROQUEL 100 MG TABS QUETIAPINE FUMARATE 26426529940 No Longer Active Leonila Mckeon MD Active ROCEPHIN 1 GM INJ SOLR CEFTRIAXONE SODIUM 27259334862 No Longer Active Leonila Mckeon MD Active BENADRYL ALLERGY 25 MG CAPS 2 caps DIPHENHYDRAMINE HCL 08274562418 No Longer Active Leonila Mckeon MD Active COLACE 100 MG CAPS BID DOCUSATE SODIUM 07109121708 No Longer Active Leonila Mckeon MD Active PEPCID 40 MG TABS FAMOTIDINE 24827747693 No Longer Active Leonila Mckeon MD Active TAMSULOSIN HCL 0.4 MG CAPS 1 tab daily TAMSULOSIN HCL 48291838275 No Longer Active Leonila Mckeon MD Active METHOTREXATE SODIUM 25 MG/ML SOLN 1 ml injection 1 x weekly METHOTREXATE SODIUM 57367897196 No Longer Active Leonila Mckeon MD Active FLAGYL 500 MG TAB 1 tablet by mouth bid METRONIDAZOLE 84950982713 No Longer Active Leonila Mckeon MD Active KEFLEX 500 MG CAPS 1 tablet three times a day CEPHALEXIN 39551988276 No Longer Active Steph GORE Active HUMIRA PEN 40 MG/0.8ML KIT 1 pen subcutaneous q 14 days ADALIMUMAB 93731308662 No Longer Active Leonila Mckeon MD Active FLAGYL 500 MG TAB 1 tablet by mouth bid FLAGYL 500 MG TAB 827767 METRONIDAZOLE Inactive METHOTREXATE SODIUM 25 MG/ML SOLN 1 ml injection 1 x weekly METHOTREXATE SODIUM 25 MG/ML SOLN METHOTREXATE SODIUM Inactive PEPCID 40 MG TABS PEPCID 40 MG TABS 533808 FAMOTIDINE Inactive COLACE 100 MG CAPS BID COLACE 100 MG CAPS 4428565 DOCUSATE SODIUM Inactive BENADRYL ALLERGY 25 MG CAPS 2 caps BENADRYL ALLERGY 25 MG CAPS 2607758 DIPHENHYDRAMINE HCL Inactive ROCEPHIN 1 GM INJ SOLR ROCEPHIN 1 GM INJ SOLR 6889527 CEFTRIAXONE SODIUM Inactive SEROQUEL 100 MG TABS SEROQUEL 100 MG TABS 719315 QUETIAPINE FUMARATE Inactive TAMSULOSIN HCL 0.4 MG CAPS 1 cap 30min after the same meal each day, once a day TAMSULOSIN HCL 0.4 MG CAPS 693818 TAMSULOSIN HCL Inactive HUMIRA PEN 40 MG/0.8ML KIT 1 pen subcutaneous q 14 days HUMIRA PEN 40 MG/0.8ML KIT ADALIMUMAB Inactive KEFLEX 500 MG CAPS 1 tablet three times a day KEFLEX 500 MG CAPS 873187 CEPHALEXIN Inactive TAMSULOSIN HCL 0.4 MG CAPS 1 tab daily TAMSULOSIN HCL 0.4 MG CAPS 042009 TAMSULOSIN HCL Inactive Advance Directives Directive Description Start Date PERMISSION TO SHARE Vital Signs Date Name Value Unit Range Description blood pressure, diastolic 70 mm[Hg] BP dunne blood pressure, systolic 115 mm[Hg] BP sys pulse rate E&M 70 /min Heart rate temperature E&M 98.1 [degF] Body temperature weight E&M 229 [lb_av] Weight Measured Encounters Code Encounter Date Provider Facility CPT-18697 Level 3 Est. Patient 02:50:42 CDT Leonila Mckeon MD [facility] CPT-02555 Level 3 Est. Patient 15:47:48 CDT Leonila Mckeon MD [facility] CPT-35609 Level 3 Est. Patient 18:22:46 CDT Leonila Mckeon MD [facility] CPT-69437 Level 3 Est. Patient 07:54:29 CDT Leonila Mckeon MD [facility] CPT-65919 Level 3 Est. Patient 19:49:47 CDT Leonila Mckeon MD [facility] CPT-51743 Level 3 Est. Patient 16:58:22 CDT Leonila Mckeon MD [facility] Procedures Code Procedure Name Date Entry Date Standard Description CPT-45721 Abd single AP View 13:20:43 CDT CPT-60407 Postop F/U Visit 15:06:29 CDT CPT-70373 Abd single AP View 08:57:17 CDT CPT-64616 Cystoscopy 19:49:47 CDT CPT-78533 Bladder Scan 19:49:47 CDT CPT-75991 Urine Dip (Floor Use Only) 16:58:22 CDT
--- OUTSIDE RECORDS SUMMARY | 2018-02-24 06:50 | XMS REPORT | Clinical Summary ---
Author Author Admin, E Organization [facility] Address Unknown Phone Unavailable Allergies, Adverse [...] 1 tablet by mouth daily LEVOTHYROXINE SODIUM 43356036008 Active Leonila Mckeon MD Active TAMSULOSIN HCL 0.4 MG CAPS Take one tablet daily TAMSULOSIN HCL 50540127821 Active Yvonne Brown Active TAMSULOSIN HCL 0.4 MG CAPS 1 cap 30min after the same meal each day, once a day TAMSULOSIN HCL 48533280543 No Longer Active Leonila Mckeon MD Active SEROQUEL 100 MG TABS QUETIAPINE FUMARATE 89699580289 No Longer Active Leonila Mckeon MD Active ROCEPHIN 1 GM INJ SOLR CEFTRIAXONE SODIUM 22543048948 No Longer Active Leonila Mckeon MD Active BENADRYL ALLERGY 25 MG CAPS 2 caps DIPHENHYDRAMINE HCL 56616481192 No Longer Active Leonila Mckeon MD Active COLACE 100 MG CAPS BID DOCUSATE SODIUM 87699009119 No Longer Active Leonila Mckeon MD Active PEPCID 40 MG TABS FAMOTIDINE 29292327133 No Longer Active Leonila Mckeon MD Active TAMSULOSIN HCL 0.4 MG CAPS 1 tab daily TAMSULOSIN HCL 03885920668 No Longer Active Leonila Mckeon MD Active METHOTREXATE SODIUM 25 MG/ML SOLN 1 ml injection 1 x weekly METHOTREXATE SODIUM 89235468597 No Longer Active Leonila Mckeon MD Active FLAGYL 500 MG TAB 1 tablet by mouth bid METRONIDAZOLE 54258955405 No Longer Active Leonila Mckeon MD Active KEFLEX 500 MG CAPS 1 tablet three times a day CEPHALEXIN 11080623446 No Longer Active Steph GORE Active HUMIRA PEN 40 MG/0.8ML KIT 1 pen subcutaneous q 14 days ADALIMUMAB 92844852074 No Longer Active Leonila Mckeon MD Active FLAGYL 500 MG TAB 1 tablet by mouth bid FLAGYL 500 MG TAB 184595 METRONIDAZOLE Inactive METHOTREXATE SODIUM 25 MG/ML SOLN 1 ml injection 1 x weekly METHOTREXATE SODIUM 25 MG/ML SOLN METHOTREXATE SODIUM Inactive PEPCID 40 MG TABS PEPCID 40 MG TABS 078100 FAMOTIDINE Inactive COLACE 100 MG CAPS BID COLACE 100 MG CAPS 3617476 DOCUSATE SODIUM Inactive BENADRYL ALLERGY 25 MG CAPS 2 caps BENADRYL ALLERGY 25 MG CAPS 3289635 DIPHENHYDRAMINE HCL Inactive ROCEPHIN 1 GM INJ SOLR ROCEPHIN 1 GM INJ SOLR 8770321 CEFTRIAXONE SODIUM Inactive SEROQUEL 100 MG TABS SEROQUEL 100 MG TABS 501123 QUETIAPINE FUMARATE Inactive TAMSULOSIN HCL 0.4 MG CAPS 1 cap 30min after the same meal each day, once a day TAMSULOSIN HCL 0.4 MG CAPS 031859 TAMSULOSIN HCL Inactive HUMIRA PEN 40 MG/0.8ML KIT 1 pen subcutaneous q 14 days HUMIRA PEN 40 MG/0.8ML KIT ADALIMUMAB Inactive KEFLEX 500 MG CAPS 1 tablet three times a day KEFLEX 500 MG CAPS 805843 CEPHALEXIN Inactive TAMSULOSIN HCL 0.4 MG CAPS 1 tab daily TAMSULOSIN HCL 0.4 MG CAPS 195466 TAMSULOSIN HCL Inactive Advance Directives Directive Description Start Date PERMISSION TO SHARE Vital Signs Date Name Value Unit Range Description blood pressure, diastolic - 8462-4 70 mm[Hg] BP dunne blood pressure, systolic - 8480-6 115 mm[Hg] BP sys pulse rate E&M - 8867-4 70 /min Heart rate temperature E&M 98.1 [degF] Body temperature weight E&M - 3141-9 229 [lb_av] Weight Measured Encounters Code Encounter Date Provider Facility CPT-50057 Level 3 Est. Patient 02:50:42 CDT Leonila Mckeon MD [facility] CPT-50050 Level 3 Est. Patient 15:47:48 CDT Leonila Mckeon MD [facility] CPT-62748 Level 3 Est. Patient 18:22:46 CDT Leonila Mckeon MD [facility] CPT-23669 Level 3 Est. Patient 07:54:29 CDT Leonila Mckeon MD [facility] CPT-07681 Level 3 Est. Patient 19:49:47 CDT Leonila Mckeon MD [facility] CPT-08909 Level 3 Est. Patient 16:58:22 CDT Leonila Mckeon MD [facility] Procedures Code Procedure Name Date Entry Date Standard Description CPT-21254 Abd single AP View 13:20:43 CDT CPT-11778 Postop F/U Visit 15:06:29 CDT CPT-71838 Abd single AP View 08:57:17 CDT CPT-18121 Cystoscopy 19:49:47 CDT CPT-67812 Bladder Scan 19:49:47 CDT CPT-71603 Urine Dip (Floor Use Only) 16:58:22 CDT
--- OUTSIDE RECORDS SUMMARY | 2018-02-24 06:51 | XMS REPORT | Clinical Summary ---
Author Author Admin, E Organization [facility] Address Unknown Phone Unavailable Allergies, Adverse Reactions, [...] 1 tablet by mouth daily LEVOTHYROXINE SODIUM 39473741970 Active Leonila Mckeon MD Active TAMSULOSIN HCL 0.4 MG CAPS Take one tablet daily TAMSULOSIN HCL 74798546587 Active Yvonne Brown Active TAMSULOSIN HCL 0.4 MG CAPS 1 cap 30min after the same meal each day, once a day TAMSULOSIN HCL 09889362330 No Longer Active Leonila Mckeon MD Active SEROQUEL 100 MG TABS QUETIAPINE FUMARATE 22004872350 No Longer Active Leonila Mckeon MD Active ROCEPHIN 1 GM INJ SOLR CEFTRIAXONE SODIUM 44795948271 No Longer Active Leonila Mckeon MD Active BENADRYL ALLERGY 25 MG CAPS 2 caps DIPHENHYDRAMINE HCL 93666256027 No Longer Active Leonila Mckeon MD Active COLACE 100 MG CAPS BID DOCUSATE SODIUM 12621906245 No Longer Active Leonila Mckeon MD Active PEPCID 40 MG TABS FAMOTIDINE 64170527035 No Longer Active Leonila Mckeon MD Active TAMSULOSIN HCL 0.4 MG CAPS 1 tab daily TAMSULOSIN HCL 72360321296 No Longer Active Leonila Mckeon MD Active METHOTREXATE SODIUM 25 MG/ML SOLN 1 ml injection 1 x weekly METHOTREXATE SODIUM 20632753855 No Longer Active Leonila Mckeon MD Active FLAGYL 500 MG TAB 1 tablet by mouth bid METRONIDAZOLE 60433607073 No Longer Active Leonila Mckeon MD Active KEFLEX 500 MG CAPS 1 tablet three times a day CEPHALEXIN 70005662297 No Longer Active Steph GORE Active HUMIRA PEN 40 MG/0.8ML KIT 1 pen subcutaneous q 14 days ADALIMUMAB 31013022814 No Longer Active Leonila Mckeon MD Active FLAGYL 500 MG TAB 1 tablet by mouth bid FLAGYL 500 MG TAB 711937 METRONIDAZOLE Inactive METHOTREXATE SODIUM 25 MG/ML SOLN 1 ml injection 1 x weekly METHOTREXATE SODIUM 25 MG/ML SOLN METHOTREXATE SODIUM Inactive PEPCID 40 MG TABS PEPCID 40 MG TABS 545048 FAMOTIDINE Inactive COLACE 100 MG CAPS BID COLACE 100 MG CAPS 3303303 DOCUSATE SODIUM Inactive BENADRYL ALLERGY 25 MG CAPS 2 caps BENADRYL ALLERGY 25 MG CAPS 0641527 DIPHENHYDRAMINE HCL Inactive ROCEPHIN 1 GM INJ SOLR ROCEPHIN 1 GM INJ SOLR 4494713 CEFTRIAXONE SODIUM Inactive SEROQUEL 100 MG TABS SEROQUEL 100 MG TABS 674602 QUETIAPINE FUMARATE Inactive TAMSULOSIN HCL 0.4 MG CAPS 1 cap 30min after the same meal each day, once a day TAMSULOSIN HCL 0.4 MG CAPS 458551 TAMSULOSIN HCL Inactive HUMIRA PEN 40 MG/0.8ML KIT 1 pen subcutaneous q 14 days HUMIRA PEN 40 MG/0.8ML KIT ADALIMUMAB Inactive KEFLEX 500 MG CAPS 1 tablet three times a day KEFLEX 500 MG CAPS 122291 CEPHALEXIN Inactive TAMSULOSIN HCL 0.4 MG CAPS 1 tab daily TAMSULOSIN HCL 0.4 MG CAPS 634752 TAMSULOSIN HCL Inactive Advance Directives Directive Description [...] Measured Encounters Code Encounter Date Provider Facility CPT-30772 Level 3 Est. Patient 02:50:42 CDT Leonila Mckeon MD [facility] CPT-07445 Level 3 Est. Patient 15:47:48 CDT Leonila Mckeon MD [facility] CPT-72357 Level 3 Est. Patient 18:22:46 CDT Leonila Mckeon MD [facility] CPT-29129 Level 3 Est. Patient 07:54:29 CDT Leonila Mckeon MD [facility] CPT-03485 Level 3 Est. Patient 19:49:47 CDT Leonila Mckeon MD [facility] CPT-21496 Level 3 Est. Patient 16:58:22 CDT Leonila Mckeon MD [facility] Procedures Code Procedure Name Date Entry Date Standard Description CPT-63711 Abd single AP View 13:20:43 CDT CPT-78088 Postop F/U Visit 15:06:29 CDT CPT-39799 Abd single AP View 08:57:17 CDT CPT-10672 Cystoscopy 19:49:47 CDT CPT-33002 Bladder Scan 19:49:47 CDT CPT-43496 Urine Dip (Floor Use Only) 16:58:22 CDT
--- OUTSIDE RECORDS SUMMARY | 2018-02-24 06:51 | XMS REPORT | Clinical Summary ---
Author Author Admin, E Organization [facility] [employer] [place] Address Unknown Phone Unavailable Allergies, Adverse Reactions, [...] Patient Instruction TAMSULOSIN HCL 0.4 MG CAPS Take one tablet daily TAMSULOSIN HCL 85345524027 Active Yvonne Brown Active TAMSULOSIN HCL 0.4 MG CAPS 1 cap 30min after the same meal each day, once a day TAMSULOSIN HCL 56255845630 No Longer Active Leonila Mckeon MD Active SEROQUEL 100 MG TABS QUETIAPINE FUMARATE 22046123276 No Longer Active Leonila Mckeon MD Active ROCEPHIN 1 GM INJ SOLR CEFTRIAXONE SODIUM 12575673012 No Longer Active Leonila Mckeon MD Active BENADRYL ALLERGY 25 MG CAPS 2 caps DIPHENHYDRAMINE HCL 45003466005 No Longer Active Leonila Mckeon MD Active COLACE 100 MG CAPS BID DOCUSATE SODIUM 05585108949 No Longer Active Leonila Mckeon MD Active PEPCID 40 MG TABS FAMOTIDINE 31131721164 No Longer Active Leonila Mckeon MD Active TAMSULOSIN HCL 0.4 MG CAPS 1 tab daily TAMSULOSIN HCL 27011247051 No Longer Active Leonila Mckeon MD Active METHOTREXATE SODIUM 25 MG/ML SOLN 1 ml injection 1 x weekly METHOTREXATE SODIUM 00261058102 No Longer Active Leonila Mckeon MD Active FLAGYL 500 MG TAB 1 tablet by mouth bid METRONIDAZOLE 70269804320 No Longer Active Leonila Mckeon MD Active KEFLEX 500 MG CAPS 1 tablet three times a day CEPHALEXIN 18280305362 No Longer Active Steph GORE Active HUMIRA PEN 40 MG/0.8ML KIT 1 pen subcutaneous q 14 days ADALIMUMAB 21783575752 No Longer Active Leonila Mckeon MD Active FLAGYL 500 MG TAB 1 tablet by mouth bid FLAGYL 500 MG TAB 189809 METRONIDAZOLE Inactive METHOTREXATE SODIUM 25 MG/ML SOLN 1 ml injection 1 x weekly METHOTREXATE SODIUM 25 MG/ML SOLN METHOTREXATE SODIUM Inactive PEPCID 40 MG TABS PEPCID 40 MG TABS 317323 FAMOTIDINE Inactive COLACE 100 MG CAPS BID COLACE 100 MG CAPS 7942400 DOCUSATE SODIUM Inactive BENADRYL ALLERGY 25 MG CAPS 2 caps BENADRYL ALLERGY 25 MG CAPS 9987276 DIPHENHYDRAMINE HCL Inactive ROCEPHIN 1 GM INJ SOLR ROCEPHIN 1 GM INJ SOLR 3882533 CEFTRIAXONE SODIUM Inactive SEROQUEL 100 MG TABS SEROQUEL 100 MG TABS 455003 QUETIAPINE FUMARATE Inactive TAMSULOSIN HCL 0.4 MG CAPS 1 cap 30min after the same meal each day, once a day TAMSULOSIN HCL 0.4 MG CAPS 252797 TAMSULOSIN HCL Inactive HUMIRA PEN 40 MG/0.8ML KIT 1 pen subcutaneous q 14 days HUMIRA PEN 40 MG/0.8ML KIT ADALIMUMAB Inactive KEFLEX 500 MG CAPS 1 tablet three times a day KEFLEX 500 MG CAPS 710538 CEPHALEXIN Inactive TAMSULOSIN HCL 0.4 MG CAPS 1 tab daily TAMSULOSIN HCL 0.4 MG CAPS 026283 TAMSULOSIN HCL Inactive Advance Directives Directive Description Start Date PERMISSION TO SHARE Encounters Code Encounter Date Provider Facility CPT-95936 Level 3 Est. Patient 15:47:48 CDT Leonila Mckeon MD [facility] CPT-21192 Level 3 Est. Patient 18:22:46 CDT Leonila Mckeon MD [facility] CPT-49049 Level 3 Est. Patient 07:54:29 CDT Leonila Mckeon MD [facility] CPT-49636 Level 3 Est. Patient 19:49:47 CDT Leonila Mckeon MD [facility] CPT-35995 Level 3 Est. Patient 16:58:22 CDT Leonila Mckeon MD [facility] Procedures Code Procedure Name Date Entry Date Standard Description CPT-53540 Abd single AP View 13:20:43 CDT CPT-21852 Postop F/U Visit 15:06:29 CDT CPT-64993 Abd single AP View 08:57:17 CDT CPT-60048 Cystoscopy 19:49:47 CDT CPT-61117 Bladder Scan 19:49:47 CDT CPT-32516 Urine Dip (Floor Use Only) 16:58:22 CDT
--- OUTSIDE RECORDS SUMMARY | 2018-02-24 06:51 | XMS REPORT | Clinical Summary ---
Author Author Admin, E Organization [facility] [employer] [place] Address Unknown Phone Unavailable Allergies, Adverse Reactions, [...] each day, once a day TAMSULOSIN HCL 27145501246 No Longer Active Leonila Mckeon MD Active SEROQUEL 100 MG TABS QUETIAPINE FUMARATE 10988624855 No Longer Active Leonila Mckeon MD Active ROCEPHIN 1 GM INJ SOLR CEFTRIAXONE SODIUM 34355547415 No Longer Active Leonila Mckeon MD Active BENADRYL ALLERGY 25 MG CAPS 2 caps DIPHENHYDRAMINE HCL 58214778119 No Longer Active Leonila Mckeon MD Active COLACE 100 MG CAPS BID DOCUSATE SODIUM 62381996090 No Longer Active Leonila Mckeon MD Active PEPCID 40 MG TABS FAMOTIDINE 93233471845 No Longer Active Leonila Mckeon MD Active TAMSULOSIN HCL 0.4 MG CAPS 1 tab daily TAMSULOSIN HCL 48614041625 No Longer Active Leonila Mckeon MD Active METHOTREXATE SODIUM 25 MG/ML SOLN 1 ml injection 1 x weekly METHOTREXATE SODIUM 53375485095 No Longer Active Leonila Mckeon MD Active FLAGYL 500 MG TAB 1 tablet by mouth bid METRONIDAZOLE 74060278307 No Longer Active Leonila Mckeon MD Active KEFLEX 500 MG CAPS 1 tablet three times a day CEPHALEXIN 34722441789 No Longer Active Steph GORE Active HUMIRA PEN 40 MG/0.8ML KIT 1 pen subcutaneous q 14 days ADALIMUMAB 44188505482 No Longer Active Leonila Mckeon MD Active FLAGYL 500 MG TAB 1 tablet by mouth bid FLAGYL 500 MG TAB 949317 METRONIDAZOLE Inactive METHOTREXATE SODIUM 25 MG/ML SOLN 1 ml injection 1 x weekly METHOTREXATE SODIUM 25 MG/ML SOLN METHOTREXATE SODIUM Inactive PEPCID 40 MG TABS PEPCID 40 MG TABS 796784 FAMOTIDINE Inactive COLACE 100 MG CAPS BID COLACE 100 MG CAPS 3396982 DOCUSATE SODIUM Inactive BENADRYL ALLERGY 25 MG CAPS 2 caps BENADRYL ALLERGY 25 MG CAPS 1975704 DIPHENHYDRAMINE HCL Inactive ROCEPHIN 1 GM INJ SOLR ROCEPHIN 1 GM INJ SOLR 2380830 CEFTRIAXONE SODIUM Inactive SEROQUEL 100 MG TABS SEROQUEL 100 MG TABS 665227 QUETIAPINE FUMARATE Inactive TAMSULOSIN HCL 0.4 MG CAPS 1 cap 30min after the same meal each day, once a day TAMSULOSIN HCL 0.4 MG CAPS 041920 TAMSULOSIN HCL Inactive HUMIRA PEN 40 MG/0.8ML KIT 1 pen subcutaneous q 14 days HUMIRA PEN 40 MG/0.8ML KIT ADALIMUMAB Inactive KEFLEX 500 MG CAPS 1 tablet three times a day KEFLEX 500 MG CAPS 539234 CEPHALEXIN Inactive TAMSULOSIN HCL 0.4 MG CAPS 1 tab daily TAMSULOSIN HCL 0.4 MG CAPS 194034 TAMSULOSIN HCL Inactive Advance Directives Directive Description [...] urinalysis, routine Clean Catch culture status Yes urobilinogen, urine, semiquantitative (dipstick) 0.2 nitrite, urine, semiquantitative negative leukocyte esterase, urine, by dipstick 2+ appearance, urine clear urine color yellow protein, urine, semiquantitative (dipstick) negative ketones, urine, by test strip negative bilirubin, urine negative glucose, urine, semiquantitative negative Office Visit: Follow up tamsulosin - [...] No Encounters Code Encounter Date Provider Facility CPT-49210 Level 3 Est. Patient 15:47:48 CDT Leonila Mckeon MD [facility] CPT-47353 Level 3 Est. Patient 18:22:46 CDT Leonila Mckeon MD [facility] CPT-83331 Level 3 Est. Patient 07:54:29 CDT Leonila Mckeon MD [facility] CPT-78726 Level 3 Est. Patient 19:49:47 CDT Leonila Mckeon MD [facility] CPT-59272 Level 3 Est. Patient 16:58:22 CDT Leonila Mckeon MD [facility] Procedures Code Procedure Name Date Entry Date Standard Description CPT-18438 Abd single AP View 13:20:43 CDT CPT-37647 Postop F/U Visit 15:06:29 CDT CPT-98725 Abd single AP View 08:57:17 CDT CPT-08247 Cystoscopy 19:49:47 CDT CPT-95428 Bladder Scan 19:49:47 CDT CPT-81820 Urine Dip (Floor Use Only) 16:58:22 CDT
--- OUTSIDE RECORDS SUMMARY | 2018-02-24 06:51 | XMS REPORT | Clinical Summary ---
Author Author Admin, E Organization [facility] Address Unknown Phone Unavailable Allergies, Adverse Reactions, Alerts Allergy Name Reaction Description Start Date Severity Status Provider CARLOS Donald Active Leonila Mckeon MD Conditions or Problems [...] Instruction TAMSULOSIN HCL 0.4 MG CAPS 1 tab daily TAMSULOSIN HCL 63680027665 Active Leonila Mckeon MD Active PEPCID 40 MG TABS FAMOTIDINE 82455899317 Active Leonila Mckeon MD Active COLACE 100 MG CAPS BID DOCUSATE SODIUM 18467999004 Active Leonila Mckeon MD Active BENADRYL ALLERGY 25 MG CAPS 2 caps DIPHENHYDRAMINE HCL 17783489477 Active Leonila Mckeon MD Active ROCEPHIN 1 GM INJ SOLR CEFTRIAXONE SODIUM 50341632397 Active Leonila Mckeon MD Active SEROQUEL 100 MG TABS QUETIAPINE FUMARATE 11798731792 Active Leonila Mckeon MD Active METHOTREXATE SODIUM 25 MG/ML SOLN 1 ml injection 1 x weekly METHOTREXATE SODIUM 92878209811 No Longer Active Leonila Mckeon MD Active FLAGYL 500 MG TAB 1 tablet by mouth bid METRONIDAZOLE 57837492497 No Longer Active Leonila Mckeon MD Active KEFLEX 500 MG CAPS 1 tablet three times a day CEPHALEXIN 85112823720 No Longer Active Steph GORE Active TAMSULOSIN HCL 0.4 MG CAPS 1 cap 30min after the same meal each day, once a day TAMSULOSIN HCL 15558384402 Active Leonila Mckeon MD Active HUMIRA PEN 40 MG/0.8ML KIT 1 pen subcutaneous q 14 days ADALIMUMAB 07846044954 No Longer Active Leonila Mckeon MD Active FLAGYL 500 MG TAB 1 tablet by mouth bid FLAGYL 500 MG TAB 685231 METRONIDAZOLE Inactive METHOTREXATE SODIUM 25 MG/ML SOLN 1 ml injection 1 x weekly METHOTREXATE SODIUM 25 MG/ML SOLN METHOTREXATE SODIUM Inactive HUMIRA PEN 40 MG/0.8ML KIT 1 pen subcutaneous q 14 days HUMIRA PEN 40 MG/0.8ML KIT ADALIMUMAB Inactive KEFLEX 500 MG CAPS 1 tablet three times a day KEFLEX 500 MG CAPS 721107 CEPHALEXIN Inactive Advance Directives Directive Description Start Date PERMISSION TO SHARE Encounters Code Encounter Date Provider Facility CPT-76091 Level 3 Est. Patient 15:47:48 CDT Leonila Mckeon MD [facility] CPT-92536 Level 3 Est. Patient 18:22:46 CDT Leonila Mckeon MD [facility] CPT-41320 Level 3 Est. Patient 07:54:29 CDT Leonila Mckeon MD [facility] CPT-52527 Level 3 Est. Patient 19:49:47 CDT Leonila Mckeon MD [facility] CPT-31580 Level 3 Est. Patient 16:58:22 CDT Leonila Mckeon MD [facility] Procedures Code Procedure Name Date Entry Date Standard Description CPT-91411 Abd single AP View 13:20:43 CDT CPT-90124 Postop F/U Visit 15:06:29 CDT CPT-35162 Abd single AP View 08:57:17 CDT CPT-49742 Cystoscopy 19:49:47 CDT CPT-83354 Bladder Scan 19:49:47 CDT CPT-24671 Urine Dip (Floor Use Only) 16:58:22 CDT
--- OUTSIDE RECORDS SUMMARY | 2018-02-24 06:51 | XMS REPORT | Clinical Summary ---
Author Author Admin, E Organization [facility] [employer] Address Unknown Phone Unavailable Allergies, Adverse Reactions, [...] each day, once a day TAMSULOSIN HCL 68299378810 No Longer Active Leonila Mckeon MD Active SEROQUEL 100 MG TABS QUETIAPINE FUMARATE 39773190067 No Longer Active Leonila Mckeon MD Active ROCEPHIN 1 GM INJ SOLR CEFTRIAXONE SODIUM 46348605469 No Longer Active Leonila Mckeon MD Active BENADRYL ALLERGY 25 MG CAPS 2 caps DIPHENHYDRAMINE HCL 29754196410 No Longer Active Leonila Mckeon MD Active COLACE 100 MG CAPS BID DOCUSATE SODIUM 46006016939 No Longer Active Leonila Mckeon MD Active PEPCID 40 MG TABS FAMOTIDINE 95511078541 No Longer Active Leonila Mckeon MD Active TAMSULOSIN HCL 0.4 MG CAPS 1 tab daily TAMSULOSIN HCL 15921583941 No Longer Active Leonila Mckeon MD Active METHOTREXATE SODIUM 25 MG/ML SOLN 1 ml injection 1 x weekly METHOTREXATE SODIUM 08817108432 No Longer Active Leonila Mckeon MD Active FLAGYL 500 MG TAB 1 tablet by mouth bid METRONIDAZOLE 37951677879 No Longer Active Leonila Mckeon MD Active KEFLEX 500 MG CAPS 1 tablet three times a day CEPHALEXIN 03365642821 No Longer Active Steph GORE Active HUMIRA PEN 40 MG/0.8ML KIT 1 pen subcutaneous q 14 days ADALIMUMAB 14783738724 No Longer Active Leonila Mckeon MD Active FLAGYL 500 MG TAB 1 tablet by mouth bid FLAGYL 500 MG TAB 357996 METRONIDAZOLE Inactive METHOTREXATE SODIUM 25 MG/ML SOLN 1 ml injection 1 x weekly METHOTREXATE SODIUM 25 MG/ML SOLN METHOTREXATE SODIUM Inactive PEPCID 40 MG TABS PEPCID 40 MG TABS 065920 FAMOTIDINE Inactive COLACE 100 MG CAPS BID COLACE 100 MG CAPS 6106563 DOCUSATE SODIUM Inactive BENADRYL ALLERGY 25 MG CAPS 2 caps BENADRYL ALLERGY 25 MG CAPS 1818198 DIPHENHYDRAMINE HCL Inactive ROCEPHIN 1 GM INJ SOLR ROCEPHIN 1 GM INJ SOLR 9809131 CEFTRIAXONE SODIUM Inactive SEROQUEL 100 MG TABS SEROQUEL 100 MG TABS 555635 QUETIAPINE FUMARATE Inactive TAMSULOSIN HCL 0.4 MG CAPS 1 cap 30min after the same meal each day, once a day TAMSULOSIN HCL 0.4 MG CAPS 998028 TAMSULOSIN HCL Inactive HUMIRA PEN 40 MG/0.8ML KIT 1 pen subcutaneous q 14 days HUMIRA PEN 40 MG/0.8ML KIT ADALIMUMAB Inactive KEFLEX 500 MG CAPS 1 tablet three times a day KEFLEX 500 MG CAPS 039301 CEPHALEXIN Inactive TAMSULOSIN HCL 0.4 MG CAPS 1 tab daily TAMSULOSIN HCL 0.4 MG CAPS 560818 TAMSULOSIN HCL Inactive Advance Directives Directive Description Start Date PERMISSION TO SHARE Encounters Code Encounter Date Provider Facility CPT-07644 Level 3 Est. Patient 15:47:48 CDT Leonila Mckeon MD [facility] CPT-67169 Level 3 Est. Patient 18:22:46 CDT Loenila Mckeon MD [facility]-43214 Level 3 Est. Patient 07:54:29 CDT Leonila Mckeon MD [facility] CPT-45678 Level 3 Est. Patient 19:49:47 CDT Leonila Mckeon MD [facility] CPT-59987 Level 3 Est. Patient 16:58:22 CDT Leonila Mckeon MD [facility] Procedures Code Procedure Name Date Entry Date Standard Description CPT-79992 Abd single AP View 13:20:43 CDT CPT-78164 Postop F/U Visit 15:06:29 CDT CPT-59908 Abd single AP View 08:57:17 CDT CPT-15286 Cystoscopy 19:49:47 CDT CPT-63744 Bladder Scan 19:49:47 CDT CPT-53053 Urine Dip (Floor Use Only) 16:58:22 CDT
--- OUTSIDE RECORDS SUMMARY | 2018-02-24 06:52 | XMS REPORT | Clinical Summary ---
Author Author Admin, [facility] Organization [facility] Address Unknown Phone Unavailable Allergies, Adverse Reactions, [...] Active Leonila Mckeon MD Calculus of ureter Medication List Medication Instructions Start Date Stop Date Generic Name NDC Status Provider Patient Instruction PEPCID 40 MG TABS FAMOTIDINE 41404620760 Active Leonila Mckeon MD Active COLACE 100 MG CAPS BID DOCUSATE SODIUM 09280087367 Active Leonila Mckeon MD Active BENADRYL ALLERGY 25 MG CAPS 2 caps DIPHENHYDRAMINE HCL 18094405178 Active Leonila Mckeon MD Active ROCEPHIN 1 GM INJ SOLR CEFTRIAXONE SODIUM 92219125062 Active Leonila Mckeon MD Active SEROQUEL 100 MG TABS QUETIAPINE FUMARATE 15714563575 Active Leonila Mckeon MD Active METHOTREXATE SODIUM 25 MG/ML SOLN 1 ml injection 1 x weekly METHOTREXATE SODIUM 33518576875 No Longer Active Leonila Mckeon MD Active FLAGYL 500 MG TAB 1 tablet by mouth bid METRONIDAZOLE 21347251726 No Longer Active Leonila Mckeon MD Active KEFLEX 500 MG CAPS 1 tablet three times a day CEPHALEXIN 82130140777 No Longer Active Steph GORE Active TAMSULOSIN HCL 0.4 MG CAPS 1 cap 30min after the same meal each day, once a day TAMSULOSIN HCL 35017017133 Active Steph GORE Active HUMIRA PEN 40 MG/0.8ML KIT 1 pen subcutaneous q 14 days ADALIMUMAB 47671141362 No Longer Active Leonila Mckeon MD Active FLAGYL 500 MG TAB 1 tablet by mouth bid FLAGYL 500 MG TAB 126961 METRONIDAZOLE Inactive METHOTREXATE SODIUM 25 MG/ML SOLN 1 ml injection 1 x weekly METHOTREXATE SODIUM 25 MG/ML SOLN 314914 METHOTREXATE SODIUM Inactive HUMIRA PEN 40 MG/0.8ML KIT 1 pen subcutaneous q 14 days HUMIRA PEN 40 MG/0.8ML KIT ADALIMUMAB Inactive KEFLEX 500 MG CAPS 1 tablet three times a day KEFLEX 500 MG CAPS 601210 CEPHALEXIN Inactive Encounters Code Encounter Date Provider Facility CPT-90998 Level 3 Est. Patient 18:22:46 CDT Leonila Mckeon MD [facility] CPT-06567 Level 3 Est. Patient 07:54:29 CDT Leonila Mckeon MD [facility] CPT-30886 Level 3 Est. Patient 19:49:47 CDT Leonila Mckeon MD [facility] CPT-70104 Level 3 Est. Patient 16:58:22 CDT Leonila Mckeon MD [facility] Procedures Code Procedure Name Date Entry Date Standard Description CPT-45670 Abd single AP View 13:20:43 CDT CPT-73368 Postop F/U Visit 15:06:29 CDT CPT-58315 Abd single AP View 08:57:17 CDT CPT-40791 Cystoscopy 19:49:47 CDT CPT-74444 Bladder Scan 19:49:47 CDT CPT-16855 Urine Dip (Floor Use Only) 16:58:22 CDT
--- OUTSIDE RECORDS SUMMARY | 2018-02-24 06:52 | XMS REPORT | Clinical Summary ---
Author Author Admin, [facility] Organization [facility] Address Unknown Phone Unavailable Allergies, Adverse Reactions, [...] Patient Instruction PEPCID 40 MG TABS FAMOTIDINE 10329514813 Active Leonila Mckeon MD Active COLACE 100 MG CAPS BID DOCUSATE SODIUM 87104168809 Active Leonila Mckeon MD Active BENADRYL ALLERGY 25 MG CAPS 2 caps DIPHENHYDRAMINE HCL 46372047666 Active Leonila Mckeon MD Active ROCEPHIN 1 GM INJ SOLR CEFTRIAXONE SODIUM 98002309681 Active Leonila Mckeon MD Active SEROQUEL 100 MG TABS QUETIAPINE FUMARATE 41442770546 Active Leonila Mckeon MD Active METHOTREXATE SODIUM 25 MG/ML SOLN 1 ml injection 1 x weekly METHOTREXATE SODIUM 62149292521 No Longer Active Leonila Mckeon MD Active FLAGYL 500 MG TAB 1 tablet by mouth bid METRONIDAZOLE 02186100376 No Longer Active Leonila Mckeon MD Active KEFLEX 500 MG CAPS 1 tablet three times a day CEPHALEXIN 33274666431 No Longer Active Steph GORE Active TAMSULOSIN HCL 0.4 MG CAPS 1 cap 30min after the same meal each day, once a day TAMSULOSIN HCL 63999548907 Active Leonila Mckeon MD Active HUMIRA PEN 40 MG/0.8ML KIT 1 pen subcutaneous q 14 days ADALIMUMAB 16460248910 No Longer Active Leonila Mckeon MD Active FLAGYL 500 MG TAB 1 tablet by mouth bid FLAGYL 500 MG TAB 785675 METRONIDAZOLE Inactive METHOTREXATE SODIUM 25 MG/ML SOLN 1 ml injection 1 x weekly METHOTREXATE SODIUM 25 MG/ML SOLN 046967 METHOTREXATE SODIUM Inactive HUMIRA PEN 40 MG/0.8ML KIT 1 pen subcutaneous q 14 days HUMIRA PEN 40 MG/0.8ML KIT ADALIMUMAB Inactive KEFLEX 500 MG CAPS 1 tablet three times a day KEFLEX 500 MG CAPS 859814 CEPHALEXIN Inactive Vital Signs Date Name Value Unit Range Description blood pressure, diastolic 85 mm[Hg] BP dunne blood pressure, systolic 139 mm[Hg] BP sys pulse rate E&M 72 /min Heart rate temperature E&M 97.6 [degF] Body temperature weight E&M 240 [lb_av] Weight Measured Diagnostic Results Date Name Value Unit Range Description Office Visit: Right flank pain - Chemistry RBC, urine, dipstick non-hemolyzed trace protein, total urine random negative mg/dL Office Visit: Right flank pain - Urinalysis urinalysis, routine Clean Catch ketones, urine, by test strip negative bilirubin, urine negative glucose, urine, semiquantitative negative pH, urine, semiquantitative 7.5 specific gravity, urine 1.005 urine color yellow appearance, urine clear leukocyte esterase, urine, by dipstick negative nitrite, urine, semiquantitative negative urobilinogen, urine, semiquantitative (dipstick) 0.2 protein, urine, semiquantitative (dipstick) negative Encounters Code Encounter Date Provider Facility CPT-36191 Level 3 Est. Patient 18:22:46 CDT Leonila Mckeon MD [facility] CPT-25026 Level 3 Est. Patient 07:54:29 CDT Leonila Mckeon MD [facility] CPT-61269 Level 3 Est. Patient 19:49:47 CDT Leonila Mckeon MD [facility] CPT-76913 Level 3 Est. Patient 16:58:22 CDT Leonila Mckeon MD [facility] Procedures Code Procedure Name Date Entry Date Standard Description CPT-54553 Abd single AP View 13:20:43 CDT CPT-82426 Postop F/U Visit 15:06:29 CDT CPT-08904 Abd single AP View 08:57:17 CDT CPT-90527 Cystoscopy 19:49:47 CDT CPT-25293 Bladder Scan 19:49:47 CDT CPT-57132 Urine Dip (Floor Use Only) 16:58:22 CDT
--- OUTSIDE RECORDS SUMMARY | 2018-02-24 06:52 | XMS REPORT | Clinical Summary ---
Author Author Admin, [facility] Organization [facility] Address Unknown Phone Unavailable Allergies, Adverse Reactions, [...] Patient Instruction PEPCID 40 MG TABS FAMOTIDINE 19123967256 Active Leonila Mckeon MD Active COLACE 100 MG CAPS BID DOCUSATE SODIUM 34709218881 Active Leonila Mckeon MD Active BENADRYL ALLERGY 25 MG CAPS 2 caps DIPHENHYDRAMINE HCL 55245689474 Active Leonila Mckeon MD Active ROCEPHIN 1 GM INJ SOLR CEFTRIAXONE SODIUM 04326384808 Active Leonila Mckeon MD Active SEROQUEL 100 MG TABS QUETIAPINE FUMARATE 72978525054 Active Leonila Mckeon MD Active METHOTREXATE SODIUM 25 MG/ML SOLN 1 ml injection 1 x weekly METHOTREXATE SODIUM 88364757915 No Longer Active Leonila Mckeon MD Active FLAGYL 500 MG TAB 1 tablet by mouth bid METRONIDAZOLE 48991938743 No Longer Active Leonila Mckeon MD Active KEFLEX 500 MG CAPS 1 tablet three times a day CEPHALEXIN 43108305673 No Longer Active Steph GORE Active TAMSULOSIN HCL 0.4 MG CAPS 1 cap 30min after the same meal each day, once a day TAMSULOSIN HCL 78761028206 Active Steph GORE Active HUMIRA PEN 40 MG/0.8ML KIT 1 pen subcutaneous q 14 days ADALIMUMAB 95824213397 No Longer Active Leonila Mckeon MD Active FLAGYL 500 MG TAB 1 tablet by mouth bid FLAGYL 500 MG TAB 540925 METRONIDAZOLE Inactive METHOTREXATE SODIUM 25 MG/ML SOLN 1 ml injection 1 x weekly METHOTREXATE SODIUM 25 MG/ML SOLN 815870 METHOTREXATE SODIUM Inactive HUMIRA PEN 40 MG/0.8ML KIT 1 pen subcutaneous q 14 days HUMIRA PEN 40 MG/0.8ML KIT ADALIMUMAB Inactive KEFLEX 500 MG CAPS 1 tablet three times a day KEFLEX 500 MG CAPS 462846 CEPHALEXIN Inactive Encounters Code Encounter Date Provider Facility CPT-81573 Level 3 Est. Patient 18:22:46 CDT Leonila Mckeon MD [facility] CPT-11253 Level 3 Est. Patient 07:54:29 CDT Leonila Mckeon MD [facility] CPT-68322 Level 3 Est. Patient 19:49:47 CDT Leonila Mckeon MD [facility] CPT-30881 Level 3 Est. Patient 16:58:22 CDT Leonila Mckeon MD [facility] Procedures Code Procedure Name Date Entry Date Standard Description CPT-90969 Abd single AP View 13:20:43 CDT CPT-62721 Postop F/U Visit 15:06:29 CDT CPT-84351 Abd single AP View 08:57:17 CDT CPT-78378 Cystoscopy 19:49:47 CDT CPT-33835 Bladder Scan 19:49:47 CDT CPT-13136 Urine Dip (Floor Use Only) 16:58:22 CDT
--- OUTSIDE RECORDS SUMMARY | 2018-02-24 06:52 | XMS REPORT | Clinical Summary ---
Author Author Admin, [facility] Organization [facility] Address Unknown Phone Unavailable Allergies, Adverse Reactions, [...] Patient Instruction PEPCID 40 MG TABS FAMOTIDINE 61519202468 Active Leonila Mckeon MD Active COLACE 100 MG CAPS BID DOCUSATE SODIUM 27165910911 Active Leonila Mckeon MD Active BENADRYL ALLERGY 25 MG CAPS 2 caps DIPHENHYDRAMINE HCL 53174997362 Active Leonila Mckeon MD Active ROCEPHIN 1 GM INJ SOLR CEFTRIAXONE SODIUM 63891999522 Active Leonila Mckeon MD Active SEROQUEL 100 MG TABS QUETIAPINE FUMARATE 99996784786 Active Leonila Mckeon MD Active METHOTREXATE SODIUM 25 MG/ML SOLN 1 ml injection 1 x weekly METHOTREXATE SODIUM 71035634237 No Longer Active Leonila Mckeon MD Active FLAGYL 500 MG TAB 1 tablet by mouth bid METRONIDAZOLE 49967066117 No Longer Active Leonila Mckeon MD Active KEFLEX 500 MG CAPS 1 tablet three times a day CEPHALEXIN 05469335597 No Longer Active Steph GORE Active TAMSULOSIN HCL 0.4 MG CAPS 1 cap 30min after the same meal each day, once a day TAMSULOSIN HCL 31131783221 Active Steph GORE Active HUMIRA PEN 40 MG/0.8ML KIT 1 pen subcutaneous q 14 days ADALIMUMAB 53693754838 No Longer Active Leonila Mckeon MD Active FLAGYL 500 MG TAB 1 tablet by mouth bid FLAGYL 500 MG TAB 902487 METRONIDAZOLE Inactive METHOTREXATE SODIUM 25 MG/ML SOLN 1 ml injection 1 x weekly METHOTREXATE SODIUM 25 MG/ML SOLN 690065 METHOTREXATE SODIUM Inactive HUMIRA PEN 40 MG/0.8ML KIT 1 pen subcutaneous q 14 days HUMIRA PEN 40 MG/0.8ML KIT ADALIMUMAB Inactive KEFLEX 500 MG CAPS 1 tablet three times a day KEFLEX 500 MG CAPS 316173 CEPHALEXIN Inactive Encounters Code Encounter Date Provider Facility CPT-46498 Level 3 Est. Patient 18:22:46 CDT Leonila Mckeon MD [facility] CPT-92301 Level 3 Est. Patient 07:54:29 CDT Leonila Mckeon MD [facility] CPT-46876 Level 3 Est. Patient 19:49:47 CDT Leonila Mckeon MD [facility] CPT-32084 Level 3 Est. Patient 16:58:22 CDT Leonila Mckeon MD [facility] Procedures Code Procedure Name Date Entry Date Standard Description CPT-83428 Abd single AP View 13:20:43 CDT CPT-08182 Postop F/U Visit 15:06:29 CDT CPT-36361 Abd single AP View 08:57:17 CDT CPT-47154 Cystoscopy 19:49:47 CDT CPT-20247 Bladder Scan 19:49:47 CDT CPT-06929 Urine Dip (Floor Use Only) 16:58:22 CDT
--- OUTSIDE RECORDS SUMMARY | 2018-02-24 06:52 | XMS REPORT | Clinical Summary ---
Author Author Admin, E Organization [facility] [employer] Address Unknown Phone Unavailable Allergies, Adverse Reactions, [...] Active Leonila Mckeon MD Urinary calculus, unspecified Medication List Medication Instructions Start Date Stop Date Generic Name NDC Status Provider Patient Instruction KEFLEX 500 MG CAPS 1 tablet three times a day CEPHALEXIN 79932453372 No Longer Active Steph GORE Active TAMSULOSIN HCL 0.4 MG CAPS 1 cap 30min after the same meal each day, once a day TAMSULOSIN HCL 48826266582 Active Steph GORE Active FLAGYL 500 MG TAB 1 tablet by mouth bid METRONIDAZOLE 16948162187 Active Leonila Mckeon MD Active HUMIRA PEN 40 MG/0.8ML KIT 1 pen subcutaneous q 14 days ADALIMUMAB 01176120865 No Longer Active Leonila Mckeon MD Active METHOTREXATE SODIUM 25 MG/ML SOLN 1 ml injection 1 x weekly METHOTREXATE SODIUM 13927600542 Active Leonila Mckeon MD Active HUMIRA PEN 40 MG/0.8ML KIT 1 pen subcutaneous q 14 days HUMIRA PEN 40 MG/0.8ML KIT ADALIMUMAB Inactive KEFLEX 500 MG CAPS 1 tablet three times a day KEFLEX 500 MG CAPS 268188 CEPHALEXIN Inactive Encounters Code Encounter Date Provider Facility CPT-91529 Level 3 Est. Patient 07:54:29 CDT Leonila Mckeon MD [facility] CPT-07913 Level 3 Est. Patient 19:49:47 CDT Leonila Mckeon MD [facility] CPT-57375 Level 3 Est. Patient 16:58:22 CDT Leonila Mckeon MD [facility] Procedures Code Procedure Name Date Entry Date Standard Description CPT-43367 Abd single AP View 13:20:43 CDT CPT-09705 Postop F/U Visit 15:06:29 CDT CPT-21192 Abd single AP View 08:57:17 CDT CPT-86138 Cystoscopy 19:49:47 CDT CPT-47342 Bladder Scan 19:49:47 CDT CPT-70566 Urine Dip (Floor Use Only) 16:58:22 CDT
--- OUTSIDE RECORDS SUMMARY | 2018-02-24 06:53 | XMS REPORT | Clinical Summary ---
Author Author Admin, [facility] Organization [facility] Address Unknown Phone Unavailable Allergies, Adverse Reactions, [...] Patient Instruction PEPCID 40 MG TABS FAMOTIDINE 72027751048 Active Leonila Mckeon MD Active COLACE 100 MG CAPS BID DOCUSATE SODIUM 72715435176 Active Leonila Mckeon MD Active BENADRYL ALLERGY 25 MG CAPS 2 caps DIPHENHYDRAMINE HCL 38994566277 Active Leonila Mckeon MD Active ROCEPHIN 1 GM INJ SOLR CEFTRIAXONE SODIUM 02020252737 Active Leonila Mckeon MD Active SEROQUEL 100 MG TABS QUETIAPINE FUMARATE 80124868321 Active Leonila Mckeon MD Active METHOTREXATE SODIUM 25 MG/ML SOLN 1 ml injection 1 x weekly METHOTREXATE SODIUM 26026025153 No Longer Active Leonila Mckeon MD Active FLAGYL 500 MG TAB 1 tablet by mouth bid METRONIDAZOLE 38191345580 No Longer Active Leonila Mckeon MD Active KEFLEX 500 MG CAPS 1 tablet three times a day CEPHALEXIN 55874577047 No Longer Active Steph GORE Active TAMSULOSIN HCL 0.4 MG CAPS 1 cap 30min after the same meal each day, once a day TAMSULOSIN HCL 64342635730 Active Steph GORE Active HUMIRA PEN 40 MG/0.8ML KIT 1 pen subcutaneous q 14 days ADALIMUMAB 06377880248 No Longer Active Leonila Mckeon MD Active FLAGYL 500 MG TAB 1 tablet by mouth bid FLAGYL 500 MG TAB 384948 METRONIDAZOLE Inactive METHOTREXATE SODIUM 25 MG/ML SOLN 1 ml injection 1 x weekly METHOTREXATE SODIUM 25 MG/ML SOLN 750073 METHOTREXATE SODIUM Inactive HUMIRA PEN 40 MG/0.8ML KIT 1 pen subcutaneous q 14 days HUMIRA PEN 40 MG/0.8ML KIT ADALIMUMAB Inactive KEFLEX 500 MG CAPS 1 tablet three times a day KEFLEX 500 MG CAPS 928010 CEPHALEXIN Inactive Encounters Code Encounter Date Provider Facility CPT-07061 Level 3 Est. Patient 18:22:46 CDT Leonila Mckeon MD [facility] CPT-75193 Level 3 Est. Patient 07:54:29 CDT Leonila Mckeon MD [facility] CPT-97807 Level 3 Est. Patient 19:49:47 CDT Leonila Mckeon MD [facility] CPT-74766 Level 3 Est. Patient 16:58:22 CDT Leonila Mckeon MD [facility] Procedures Code Procedure Name Date Entry Date Standard Description CPT-10944 Abd single AP View 13:20:43 CDT CPT-46874 Postop F/U Visit 15:06:29 CDT CPT-06741 Abd single AP View 08:57:17 CDT CPT-55854 Cystoscopy 19:49:47 CDT CPT-61978 Bladder Scan 19:49:47 CDT CPT-14204 Urine Dip (Floor Use Only) 16:58:22 CDT
--- OUTSIDE RECORDS SUMMARY | 2018-02-24 06:53 | XMS REPORT | Continuity of Care Document ---
Demographics x Preferred Language Unknown Marital Status Unknown Buddhist Affiliation Unknown Race Unknown Ethnic Group Unknown Author Author [facility] Organization [facility] Address Unknown Phone Unavailable Allergies Active Description Code Type Severity Reaction Onset Reported/Identified Relationship to Patient Clinical Status Yes aspirin Drug Allergy N/A N/A 11/09/2013 Yes No Known Medication Allergies NKMA N/A N/A 06/05/2016 Yes HAYFEVER Environmental Allergy Unknown Unknown 06/14/2016 Yes No Known Drug Category Allergy Drug Allergy Unknown Unknown 2016 Yes No Known Drug Allergies [id number] Drug Allergy Unknown N/A 02/12/2018 Medications Medication Packaging Start Date Stop Date Route Dosage Sig tamsulosin(tamsulosin 0.4 mg oral capsule) 1 caps 06/05/2016 Oral 0.4 mg 0.4 mg=1 caps, Oral, Daily, 0 Refill(s) Lactated Ringers Injection(Lactated Ringers Injection 1,000 mL) 1,000 mL 06/06/2016 06/06/2016 IV 10 mL/hr, IV midazolam(Versed) 4 mL 06/06/2016 06/06/2016 IV Push 4 mg 4 mg=4 mL, IV Push, Once lidocaine(lidocaine 1% injectable solution) 1 mL 06/06/2016 06/06/2016 SubCutaneous 1 mL, SubCutaneous, Once, PRN: Other (See Comment) metoclopramide(Reglan) 2 mL 201606/08/2016 IV Push 10 mg 10 mg=2 mL, IV Push, q6hr, PRN: Nausea or Vomiting ondansetron(Zofran) 2 mL 201606/08/2016 IV Push 4 mg 4 mg=2 mL, IV Push, q6hr, PRN: Nausea or Vomiting HYDROmorphone(Dilaudid) 1 mL 201606/08/2016 IV Push 1 mg 1 mg=1 mL, IV Push, q2hr, PRN: Pain oxyCODONE-acetaminophen(Percocet 5/325 oral tablet) 06/06/2016 06/08/2016 Oral 1-2 tabs, Oral, q4hr, PRN: Pain Moderate (4-6) oxyCODONE(oxyCODONE) 2 tabs 201606/08/2016 Oral 10 mg 10 mg=2 tabs, Oral, q4hr, PRN: Pain Severe (7-10) acetaminophen(acetaminophen) 2 tabs 06/06/2016 06/08/2016 Oral 1,000 mg 1,000 mg=2 tabs, Oral, q6hr tamsulosin(tamsulosin) 1 caps 06/0606/08/2016 Oral 0.4 mg 0.4 mg=1 caps, Oral, Daily HYDROmorphone(Dilaudid) 0.5 mL 06/06/2016 IV Push 0.5 mg 0.5 mg=0.5 mL, IV Push, q10min, PRN: Pain pneumococcal 23-polyvalent vaccine(pneumococcal 23-polyvalent vaccine) 0.5 mL 06/06/20162016 IntraMuscular 0.5 mL, IntraMuscular, As Indicated Lactated Ringers Injection(Lactated Ringers Injection 1,000 mL) 1,000 mL 06/07/2016 06/07/2016 IV 10 mL/hr, IV midazolam(Versed) 2 mL 06/07/2016 06/07/2016 IV Push 2 mg 2 mg=2 mL, IV Push, Once fentaNYL(Sublimaze) 1 mL 201606/07/2016 IV Push 50 mcg 50 mcg=1 mL, IV Push, Once calcium carbonate(Tums) 2 tabs 06/08/2016 Oral 1,000 mg 1,000 mg=2 tabs, Oral, QID HYDROmorphone(Dilaudid) 0.4 mL 06/07/2016 IV Push 0.4 mg 0.4 mg=0.4 mL, IV Push, q5min, PRN: Pain calcitriol(Rocaltrol) 2 caps 201606/08/2016 Oral 0.5 mcg 0.5 mcg=2 caps, Oral, BID calcitriol(Rocaltrol 0.25 mcg oral capsule) 2 caps 06/08/2016 Oral 0.5 mcg 0.5 mcg=2 caps, Oral, BID, 120 caps, 0 Refill(s) oxyCODONE-acetaminophen(Percocet 5/325 oral tablet) 06/08/2016 Oral 1-2 tabs, Oral, q4hr, PRN: Pain Moderate (4-6), 0 Refill(s) calcium carbonate(Tums 500 mg oral tablet, chewable) 2 tabs 06/08/2016 Oral 1, 000 mg 1,000 mg=2 tabs, Oral, QID, 240 tabs, 0 Refill(s) Tums 200 mg calcium (500 mg) chewable tablet Ampule 06/14/2016 200 mg calcium (500 mg) 2 (two) by Oral route daily calcitriol 0.25 mcg capsule Ampule 06/14/2016 0.25 mcg 2 (two) by Oral route daily Synthroid 125 mcg tablet Tablet 01/201709/26/2016 125 mcg 1 (one) Tablet by Oral route daily for 30 days Synthroid 150 mcg tablet Tablet 07/201611/18/2016 150 mcg 1 (one) Tablet by Oral route daily for 30 days Synthroid 200 mcg tablet Tablet 11/201601/22/2017 200 mcg 1 (one) Tablet by Oral route daily for 30 days Problems Date Dx Coded Attending Type Code Diagnosis Diagnosed By 01/07/2013 FRANCIS PHELPS DO 592.1 CALCULUS OF URETER 01/07/2013 OTIS KEMP MD 592.1 CALCULUS OF URETER 01/07/2013 ROLDAN RAMOS MD 592.1 CALCULUS OF URETER 01/07/2013 OTIS KEMP MD 592.1 CALCULUS OF URETER 01/07/2013 OTIS KEMP MD 592.1 CALCULUS OF URETER 01/07/2013 YUDI BORREGO MD 592.1 CALCULUS OF URETER 01/07/2013 OTIS KEMP MD 592.1 CALCULUS OF URETER 01/07/2013 OTIS KEMP MD 592.1 CALCULUS OF URETER 01/12/2013 FRANCIS PHELPS DO 555.9 CROHNS DISEASE NOS 01/12/2013 OTIS KEMP MD 555.9 CROHNS DISEASE NOS 01/12/2013 ROLDAN RAMOS MD 555.9 CROHNS DISEASE NOS 01/12/2013 OTIS KEMP MD 555.9 CROHNS DISEASE NOS 01/12/2013 OTIS KEMP MD 555.9 CROHNS DISEASE NOS 01/12/2013 YUDI BORREGO MD 555.9 CROHNS DISEASE NOS 01/12/2013 OTIS KEMP MD 555.9 CROHNS DISEASE NOS 01/12/2013 OTIS KEMP MD 555.9 CROHNS DISEASE NOS 05/18/2013 OTIS KEMP MD 381.81 EUSTACHIAN TUBE DYSFUNCTION 05/18/2013 OTIS KEMP MD 382.00 ACUTE OTITIS MEDIA (LEFT) 05/18/2013 ROLDAN RAMOS MD 381.81 EUSTACHIAN TUBE DYSFUNCTION 05/18/2013 ROLDAN RAMOS MD A 382.00 ACUTE OTITIS MEDIA (LEFT) 05/18/2013 OTIS KEMP MD 381.81 EUSTACHIAN TUBE DYSFUNCTION 05/18/2013 OTIS KEMP MD 382.00 ACUTE OTITIS MEDIA (LEFT) 05/18/2013 OTIS KEMP MD 381.81 EUSTACHIAN TUBE DYSFUNCTION 05/18/2013 OTIS KEMP MD 382.00 ACUTE OTITIS MEDIA (LEFT) 05/18/2013 YUDI BORREGO MD 381.81 EUSTACHIAN TUBE DYSFUNCTION 05/18/2013 YUDI BORREGO MD 382.00 ACUTE OTITIS MEDIA (LEFT) 05/18/2013 OTIS KEMP MD 381.81 EUSTACHIAN TUBE DYSFUNCTION 05/18/2013 OTIS KEMP MD 382.00 ACUTE OTITIS MEDIA (LEFT) 05/18/2013 OTIS KEMP MD 381.81 EUSTACHIAN TUBE DYSFUNCTION 05/18/2013 OTIS KEMP MD 382.00 ACUTE OTITIS MEDIA (LEFT) 06/02/2013 OTIS KEMP MD 380.4 CERUMEN IMPACTION 06/02/2013 ROLDAN RAMOS MD A 380.4 CERUMEN IMPACTION 06/02/2013 OTIS KEMP MD 380.4 CERUMEN IMPACTION 06/02/2013 OTIS KEMP MD 380.4 CERUMEN IMPACTION 06/02/2013 YUDI BORREGO MD 380.4 CERUMEN IMPACTION 06/02/2013 OTIS KEMP MD 380.4 CERUMEN IMPACTION 06/02/2013 OTIS KEMP MD 380.4 CERUMEN IMPACTION 08/24/2013 OTIS KEMP MD 239.6 NEOPLASM OF UNSPECIFIED NATURE OF BRAIN 08/24/2013 SHEIKH RACHEL, ROLDAN A 239.6 NEOPLASM OF UNSPECIFIED NATURE OF BRAIN 08/24/2013 OTIS KEMP MD 239.6 NEOPLASM OF UNSPECIFIED NATURE OF BRAIN 08/24/2013 OTIS KEMP MD 239.6 NEOPLASM OF UNSPECIFIED NATURE OF BRAIN 08/24/2013 YUDI BORREGO MD 239.6 NEOPLASM OF UNSPECIFIED NATURE OF BRAIN 08/24/2013 OTIS KEMP MD 239.6 NEOPLASM OF UNSPECIFIED NATURE OF BRAIN 08/24/2013 OTIS KEMP MD 239.6 NEOPLASM OF UNSPECIFIED NATURE OF BRAIN 08/25/2013 KEY NORIEGA 327.23 OBST SLEEP APNEA 11/09/2013 OTIS KEMP MD 213.9 BENIGN NEOPLASM OF BONE AND ARTICULAR CARTILAGE SITE UNSPECIFIED 11/09/2013 OTIS KEMP MD 426.53 OTHER BILATERAL BUNDLE BRANCH BLOCK 11/09/2013 OTIS KEMP MD 427.89 SINUS BRADYCARDIA 11/09/2013 OTIS KEMP MD 213.9 BENIGN NEOPLASM OF BONE AND ARTICULAR CARTILAGE SITE UNSPECIFIED 11/09/2013 OTIS KEMP MD 426.53 OTHER BILATERAL BUNDLE BRANCH BLOCK 11/09/2013 OTIS KEMP MD 427.89 SINUS BRADYCARDIA 11/09/2013 YUDI BORREGO MD 213.9 BENIGN NEOPLASM OF BONE AND ARTICULAR CARTILAGE SITE UNSPECIFIED 11/09/2013 YUDI BORREGO MD 426.53 OTHER BILATERAL BUNDLE BRANCH BLOCK 11/09/2013 YUDI BORREGO MD 427.89 SINUS BRADYCARDIA 11/09/2013 OTIS KEMP MD 213.9 BENIGN NEOPLASM OF BONE AND ARTICULAR CARTILAGE SITE UNSPECIFIED 11/09/2013 OTIS KEMP MD 426.53 OTHER BILATERAL BUNDLE BRANCH BLOCK 11/09/2013 OTIS KEMP MD 427.89 SINUS BRADYCARDIA 11/09/2013 OTIS KEMP MD 213.9 BENIGN NEOPLASM OF BONE AND ARTICULAR CARTILAGE SITE UNSPECIFIED 11/09/2013 OTIS KEMP MD 426.53 OTHER BILATERAL BUNDLE BRANCH BLOCK 11/09/2013 OTIS KEMP MD 427.89 SINUS BRADYCARDIA 01/05/2014 OTIS KEMP MD 461.9 SINUSITIS ACUTE 01/05/2014 YUDI BORREGO MD 461.9 SINUSITIS ACUTE 01/05/2014 OTIS KEMP MD 461.9 SINUSITIS ACUTE 01/05/2014 OTIS KEMP MD 461.9 SINUSITIS ACUTE 01/06/2014 OTIS KEMP MD 298.9 UNSPECIFIED PSYCHOSIS 01/06/2014 OTIS KEMP MD 780.60 Fever 01/06/2014 YUDI BORREGO MD 298.9 UNSPECIFIED PSYCHOSIS 01/06/2014 YUDI BORREGO MD 780.60 Fever 01/06/2014 OTIS KEMP MD 298.9 UNSPECIFIED PSYCHOSIS 01/06/2014 OTIS KEMP MD 780.60 Fever 01/06/2014 OTIS KEMP MD 298.9 UNSPECIFIED PSYCHOSIS 01/06/2014 OTIS KEMP MD 780.60 Fever 01/29/2014 YUDI BORREGO MD 599.70 HEMATURIA 01/29/2014 OTIS KEMP MD 599.70 HEMATURIA 01/29/2014 OTIS KEMP MD 599.70 HEMATURIA 03/31/2014 OTIS KEMP MD 110.3 DERMATOPHYTOSIS OF GROIN AND PERIANAL AREA 03/31/2014 OTIS KEMP MD 191.9 MALIGNANT NEOPLASM OF BRAIN UNSPECIFIED SITE 03/31/2014 OTIS KEMP MD 324.0 INTRACRANIAL ABSCESS 03/31/2014 OTIS KEMP MD 110.3 DERMATOPHYTOSIS OF GROIN AND PERIANAL AREA 03/31/2014 OTIS KEMP MD 191.9 MALIGNANT NEOPLASM OF BRAIN UNSPECIFIED SITE 03/31/2014 OTIS KEMP MD 324.0 INTRACRANIAL ABSCESS 07/02/2014 OTIS KEMP MD 592.0 CALCULUS OF KIDNEY 05/28/2016 Kemp Otis Reason E83.52 Hypercalcemia 06/13/2016 Santhosh, Jeff Final C73 Malignant neoplasm of thyroid gland 06/13/2016 Santhosh, Jeff Reason D34 Benign neoplasm of thyroid gland 06/13/2016 Santhosh,, Jeff Final 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 06/13/2016 Santhosh, Jeff Final E11.9 Type 2 diabetes mellitus without complications 06/13/2016 Trevizo,, Jeff Final F17.210 Nicotine dependence, cigarettes, uncomplicated 06/13/2016 Trevizo,, Jeff Final F32.9 Major depressive disorder, single episode, unspecified 06/13/2016 Trevizo,, Jeff Final F41.9 Anxiety disorder, unspecified 06/13/2016 Trevizo,, Jeff Final Z23 Encounter for immunization 06/13/2016 Trevizo,, Jeff Final Z79.899 Other senior care (current) drug therapy 06/14/2016 Trevizo, Jeff A C73 Malignant neoplasm of thyroid gland Trevizo, Jeff A 06/14/2016 Trevizo, Jeff A D34 Benign neoplasm of thyroid gland Trevizo, Jeff A 06/14/2016 Trevizo, Jeff A 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 Trevizo, Jeff A 06/14/2016 Trevizo, Jeff A C73 Malignant neoplasm of thyroid gland Trevizo, Jeff A 06/14/2016 Trevizo, Jeff A D34 Benign neoplasm of thyroid gland Trevizo, Jeff A 06/15/2016 Trevizo, Jeff A C73 Malignant neoplasm of thyroid gland Trevizo, Jeff A 06/15/2016 Trevizo, Jeff A D34 Benign neoplasm of thyroid gland Trevizo, Jeff A 06/15/2016 Trevizo, Jeff A 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 Trevizo, Jeff A 06/15/2016 Trevizo, Jeff A C73 Malignant neoplasm of thyroid gland Trevizo, Jeff A 06/15/2016 Trevizo, Jeff A D34 Benign neoplasm of thyroid gland Trevizo, Jeff A 06/20/2016 Trevioz, Jeff A E21.3 Hyperparathyroidism, unspecified Trevizo, Jeff A 06/20/2016 Trevizo, Jeff A E66.3 Overweight Trevizo, Jeff A 06/20/2016 Trevizo, Ejff A E83.52 Hypercalcemia Trevizo, Jeff A 06/20/2016 Trevizo, Jeff A F17.21 Nicotine dependence, cigarettes Trevizo, Jeff A 06/20/2016 Trevizo, Jeff A V67.09 FOLLOW UP EXAMINATION, FOLLOWING OTHER SURGERY Trevizo, Jeff A 06/20/2016 Trevizo, Jeff A Z09 Encounter for follow-up examination after completed treatment for conditions other than malignant neoplasm Trevizo, Jeff A 06/22/2016 Trevizo, Jeff A E21.3 Hyperparathyroidism, unspecified Trevizo, Jeff A 06/22/2016 Trevizo, Jeff A E66.3 Overweight Trevizo, Jeff A 06/22/2016 Trevizo, Jeff A E83.52 Hypercalcemia Trevizo, Jeff A 06/22/2016 Trevizo, Jeff A F17.21 Nicotine dependence, cigarettes Trevizo, Jeff A 06/26/2016 Trevizo, Jeff A E21.3 Hyperparathyroidism, unspecified Trevizo, Jeff A 06/26/2016 Trevizo, Jeff A E66.3 Overweight Trevizo, Jeff A 06/26/2016 Trevizo, Jeff A E83.52 Hypercalcemia Trevizo, Jeff A 06/26/2016 Trevizo, Jeff A F17.210 Nicotine dependence, cigarettes, uncomplicated Trevizo, Jeff A 09/05/2016 Trevizo, Jeff A C73 Malignant neoplasm of thyroid gland Trevizo, Jeff A 09/05/2016 Trevizo, Jeff A D34 Benign neoplasm of thyroid gland Trevizo, Jeff A 09/05/2016 Trevizo, Jeff A 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 Trevizo, Jeff A 12/02/2017 Mike RAMOS, Leonila Carmona Z87.442 Hx of kidney stones Procedures Code Description [place] [address] ROUTINE VENIPUNCTURE 01/12/2013 08036 UA LONG DIP 01/12/2013 37640 CBC 01/13/2013 42329 EAR LAVAGE 06/02/2013 33928 MRI BRAIN W/O & W/DYE 06/08/2013 70748 POLYSOMNOGRAPHY, 4 OR MORE 08/25/2013 NEUROLOGY ROLDAN RAMOS 08/25/2013 CARDIOLOG DAWSON TAY 11/16/2013 08085 CBC 01/06/2014 07212 UA LONG DIP 01/29/[address] ABDOMEN & PELVIS W/ & W/ O CONTRAST 01/29/2014 Urology Mathew Mckeon 02/09/2014 07980 UA LONG DIP 07/02/[address] ABDOMEN & PELVIS W/O CONTRAST 07/03/2014 49121 Thyroidectomy, removal of all remaining thyroid tissue following previous r 06/07/2016 76251 Total thyroid lobectomy, unilateral; with or without isthmusectomy Jeff Trevizo 06/14/2016 34282 Parathyroidectomy or exploration of parathyroid(s); Jeff Trevizo 06/14/2016 13407 Thyroidectomy, removal of all remaining thyroid tissue following previous removal of a portion of Jeff Trevizo 06/14/2016 64277 Office or other outpatient visit for the evaluation and management of a new patient, which requires TrevizoJeff John 06/20/2016 26785 Postoperative follow-up visit, normally included in the surgical package, to indicate that an evalua Jeff Trevizo 06/21/2016 07497 Office or other outpatient visit for the evaluation and management of a new patient, which requires Jeff Trevizo 07/05/2016 27942 Parathyroidectomy or exploration of parathyroid(s); Trevizo Jeff John 09/04/2016 58046 Total thyroid lobectomy, unilateral; with or without isthmusectomy Jeff Trevizo 09/21/2016 94063 Thyroidectomy, removal of all remaining thyroid tissue following previous removal of a portion of Jeff Trevizo 11/28/2016 Results Test Result Range ABO and Rh - 06/06/16 06:32 ABO and Rh NA Antibody Screen - 06/06/16 06:32 Antibody Screen NA Surg. Parathyroid Horm. - 06/06/16 07:20 Surg. Parathyroid Horm. 181.2 pg/mL Calcium - 06/06/16 12:59 Calcium 9.5 mg/dL 8.6-10.0 Calcium - 06/07/16 01:07 Calcium 8.4 mg/dL 8.6-10.0 Calcium - 06/07/16 07:18 Calcium 8.0 mg/dL 8.6-10.0 Glucose NPT - 06/07/16 10:21 Glucose NPT 102 mg/dL 70-100 Surgical Pathology - 06/08/16 10:05 Document View Attached Image NRG Document View Attached Image NRG Calcium - 06/08/16 13:26 Calcium 8.4 mg/dL 8.6-10.0 Calcium - 06/14/16 18:31 Calcium 9.4 mg/dL 8.9-10.5 TSH - 03/08/17 16:35 TSH 0.13 mIU/L 0.40-4.50 CULTURE, ANAEROBIC AND AEROBIC - 03/20/17 14:30 CULTURE, ANAEROBIC BACTERIA W/GRAM STAIN SEE NOTE NRG CULTURE, AEROBIC BACTERIA SEE NOTE NRG CBC - 03/26/17 16:33 WHITE BLOOD CELL COUNT 7.4 Thousand/uL 3.8-10.8 RED BLOOD CELL COUNT 5.03 Million/uL 4.20-5.80 HEMOGLOBIN 15.7 g/dL 13.2-17.1 HEMATOCRIT 44.9 % 38.5-50.0 MCV 89.3 fL 80.0-100.0 MCH 31.2 pg 27.0-33.0 MCHC 35.0 g/dL 32.0-36.0 RDW 12.7 % 11.0-15.0 PLATELET COUNT 259 Thousand/uL 140-400 MPV 9.9 fL 7.5-12.5 ABSOLUTE NEUTROPHILS 4773 cells/uL 8401-6251 ABSOLUTE LYMPHOCYTES 1569 cells/uL 850-3900 ABSOLUTE MONOCYTES 592 cells/uL 200-950 ABSOLUTE EOSINOPHILS 363 cells/uL 15-500 ABSOLUTE BASOPHILS 104 cells/uL 0-200 NEUTROPHILS 64.5 % NRG LYMPHOCYTES 21.2 % NRG MONOCYTES 8.0 % NRG EOSINOPHILS 4.9 % NRG BASOPHILS 1.4 % NRG TSH - 06/12/17 16:54 TSH 0.11 mIU/L 0.40-4.50 TSH - 11/11/17 09:04 TSH 0.02 mIU/L 0.40-4.50 CBC w/MANUAL DIFF - 01/01/18 11:29 WHITE BLOOD CELL COUNT 9.2 Thousand/uL 3.8-10.8 RED BLOOD CELL COUNT 5.35 Million/uL 4.20-5.80 HEMOGLOBIN 16.4 g/dL 13.2-17.1 HEMATOCRIT 47.8 % 38.5-50.0 MCV 89.3 fL 80.0-100.0 MCH 30.7 pg 27.0-33.0 MCHC 34.3 g/dL 32.0-36.0 RDW 12.0 % 11.0-15.0 PLATELET COUNT 299 Thousand/uL 140-400 MPV 10.4 fL 7.5-12.5 ABSOLUTE NEUTROPHILS 6900 cells/uL 0950-1831 ABSOLUTE MONOCYTES 580 cells/uL 200-950 ABSOLUTE EOSINOPHILS 285 cells/uL 15-500 ABSOLUTE BASOPHILS 92 cells/uL 0-200 NEUTROPHILS 75.0 % NRG LYMPHOCYTES 14.6 % NRG MONOCYTES 6.3 % NRG EOSINOPHILS 3.1 % NRG BASOPHILS 1.0 % NRG ABSOLUTE LYMPHOCYTES 1343 cells/uL 850-3900 PLATELET ESTIMATION ADEQUATE ADEQUATE COMMENT(S) NRG Methicillin resistant Staphylococcus aureus (MRSA) screening culture - 12:30 Methicillin resistant Staphylococcus aureus (MRSA) screening culture NEG NRG Encounters ACCT No. Visit Date/Time Discharge Status Pt. Type Provider Facility Loc./Unit Complaint [id number] 08/24/2013 20:36:00 08/25/2013 05:50:00 DIS Outpatient KEY NORIEGA [facility] 2F [id number] 06/06/2016 00:00:00 Document Registration [id number] 12/04/2017 01:36:40 ACT Document Registration [id number] 12/02/2017 15:15:02 [place] [id number] 02/12/2018 15:40:00 02/12/2018 23:59:59 CLS Outpatient OTIS KEMP MD [facility] [address] [id number] 01/01/2018 10:20:00 Document Registration [id number] 11/11/2017 09:00:00 Document Registration [id number] 06/12/2017 16:00:00 Document Registration [id number] 03/26/2017 15:40:00 Document Registration [id number] 03/20/2017 11:40:00 Document Registration [id number] 03/08/2017 14:20:00 Document Registration [id number] 06/06/2016 05:36:00 06/08/2016 15:38:00 DIS Outpatient Trevizo Brent [facility] on [address] VCHF F7SW Hyperparathyroidism [id number] 05/23/2016 07:01:00 05/23/2016 23:59:00 DIS Outpatient Kemp Brian [facility] on [address] VCJ Nuc Med Hypercalcemia [id number] 06/09/2016 05:17:11 Document Registration [id number] 06/08/2016 05:16:58 Document Registration [id number] 06/07/2016 05:17:10 Document Registration [id number] 06/06/2016 05:17:08 Document Registration [id number] 07/02/2014 10:48:00 07/02/2014 23:59:59 CLS Outpatient OTIS KEMP MD [id number] 03/31/2014 15:40:00 03/31/2014 23:59:59 CLS Outpatient OTIS KEMP MD [id number] 01/29/2014 11:07:00 01/29/2014 23:59:59 CLS Outpatient YUDI BORREGO MD [id number] 01/06/2014 08:47:00 01/06/2014 23:59:59 CLS Outpatient OTIS KEMP MD [id number] 11/09/2013 09:49:00 11/09/2013 23:59:59 CLS Outpatient TOIS KEMP MD [id number] 08/25/2013 12:56:00 08/25/2013 23:59:59 CLS Outpatient ROLDAN RAMOS MD [id number] 06/02/2013 14:22:00 06/02/2013 23:59:59 CLS Outpatient OTIS KEMP MD [id number] 01/12/2013 11:00:00 01/12/2013 23:59:59 CLS Outpatient MATTIE CARSON FRANCIS Kaycee [id number] 02/12/2018 11:57:00 02/12/2018 12:58:00 DIS Outpatient LADY DPM, TRISTIN Q [facility] PREOP HALLUX RIGIDUS [id number] 02/24/2018 06:19:00 ACT Outpatient LADY DPM, TRISTIN Q [facility] SDC HALLUX RIGIDUS LT [id number] 06/26/2016 09:47:09 06/26/2016 23:59:59 CLS Outpatient Jeff Trevizo
[2018-02-24] MEDS ORDERED: MIDAZOLAM 2 MG/2 ML (VERSED) VIAL ONE (06:57)
[2018-02-24] MEDS ORDERED: DEXAMETHASONE 10 MG/ML (DECADRON) 1 ML VIAL ONE ×2 (06:57→08:48)
[2018-02-24] MEDS ORDERED: LIDOCAINE PF 2% 2 ML (XYLOCAINE) VIAL ONE (06:57)
[2018-02-24] MEDS ORDERED: fentaNYL INJECTION 100 MCG/2 ML AMP ONE (06:57)
[2018-02-24] MEDS ORDERED: proPOfol 200 MG/20 ML (DIPRIVAN) VIAL IV ONE ×2 (06:57→07:45)
[2018-02-24] MEDS ORDERED: ONDANSETRON 4 MG/2 ML (SDV) Z0FRAN ONE (06:57)
[2018-02-24] MEDS ORDERED: SEVOFLURANE (ULTANE) 15 ML INHAL SOLN ONE (06:57)
[2018-02-24] MEDS ORDERED: CATHETER FLUSH 10 ML SYR IV PRN (07:00)
[2018-02-24] MEDS ORDERED: BUPIVACAINE 0.5% 30 ML (SENSORCAINE) VIAL ONE (07:15)
--- NOTE | 2018-02-24 07:29 | Progress Note-Pre Operative ---
Pre-Operative Progress Note H&P Reviewed The H&P was reviewed, patient examined and no changes noted. Date Seen by Provider: Feb 24, 2018 Time Seen by Provider: 07: Date H&P Reviewed: Feb 24, 2018 Time H&P Reviewed: :29 Pre-Operative Diagnosis: Hallux rigidus left TRISTIN NARAYANAN DPM Feb 24, 2018 7:29 am
[2018-02-24] MEDS ORDERED: GLYCOPYRROLATE 0.2 MG/ML (ROBINUL) 2 ML VIAL ONE (08:06)
--- NOTE | 2018-02-24 09:03 | Progress Note-Post Operative ---
Post-Operative Progess Note Surgeon (s)/Saddle And Side Wire Stitcher (s) Surgeon TRISTIN NARAYANAN DPM Saddle And Side Wire Stitcher: none Pre-Operative Diagnosis Hallux rigidus left Post-Operative Diagnosis same Procedure & Operative Findings Date of Procedure 02/24/18 Procedure Performed/Findings Cheilectomy with Cartiva Implant, left Anesthesia Type General Estimated Blood Loss Estimated blood loss (mL): minimal Specimens/Packing Specimens Removed none TRISTIN NARAYANAN DPM Feb 24, 2018 9:03 am
[2018-02-24] MEDS ORDERED: LACTATED RINGERS 1,000 ML IV SCH (09:04)
[2018-02-24] MEDS ORDERED: CEPH500C PO (09:06)
[2018-02-24] MEDS ORDERED: ACHD5005 PO (09:06)
[2018-02-24] MEDS ORDERED: morphine INJ 10 MG/ML 1ML (SYR OR VIAL) IVP ONE (09:15)
[2018-02-24] MEDS ORDERED: ONDANSETRON 4 MG/2 ML (SDV) Z0FRAN IVP PRN (09:15)
[2018-02-24] MEDS ORDERED: HYDROcodone/APAP 5 MG/325 MG (LORTAB) TAB PO PRN (09:15)
[2018-02-24 09:55] VITALS: BP 141/86
[2018-02-24 10:00] VITALS: BP 141/86
[2018-02-24 10:25] VITALS: BP 133/82
[2018-02-24 10:55] VITALS: BP 136/81
--- NOTE | 2018-02-24 11:10 | Diagnostic Imaging Report ---
INDICATION: Foot surgery. COMPARISON: None. FINDINGS: Two intraoperative image intensifier views of the left foot were obtained. Images provided show irregularity of the adjacent articular surfaces of the first metatarsophalangeal joint space. Findings are consistent with placement of implant. Please note, interpreting radiologist was not present during the procedure. Total fluoroscopy time was 2.2 seconds. IMPRESSION: Fluoroscopic guidance provided during surgery as described above. Dictated by: Dictated on workstation # [id number]
--- NOTE | 2018-02-24 13:27 | OPERATIVE REPORT ---
DATE OF SERVICE: 02/24/2018 SURGEON: Marina Narayanan DPM PREOPERATIVE DIAGNOSIS: Hallux rigidus, left. POSTOPERATIVE DIAGNOSIS: Hallux rigidus, left. PROCEDURE: Cheilectomy, left foot with Cartiva implant. WOUND CLASS: Clean. ANESTHESIA: General. HEMOSTASIS: Pneumatic thigh tourniquet at 300 mmHg. INDICATIONS: This 62-year-old male presents complaining of painful left great toe joint. Conservative therapy is met with unsatisfactory results and the patient is agreeable to surgical intervention after risks and complications were discussed at length. No guarantees were extended to the patient and he is willing to proceed. DESCRIPTION OF PROCEDURE: The patient was brought back to the operating room table, placed in secure supine position. A general anesthetic was then induced. Appropriate timeout was performed. A pneumatic thigh tourniquet was placed on the left lower extremity over several layers of padding. The left foot was then prepped and draped in normal sterile manner. The left first ray was anesthetized utilizing 6 mL of 0.5% Marcaine injected in a local infusion in a Henderson type block. The left foot was then elevated and allowed to exsanguinate after which the tourniquet was inflated to 300 mmHg. Attention was then directed to the dorsal aspect of the first metatarsophalangeal joint where a 6 cm longitudinal linear incision was created. The incisions were deepened in the same plane with great care to identify and retract all vital neurovascular structures. A longitudinal capsulotomy was performed exposing the dorsal, medial and lateral osteophytes of the first metatarsophalangeal joint involving the head of the first metatarsal and base of the proximal phalanx. These osteophytes were reduced with a combination of a rongeur and power instrumentation including a sagittal saw and power bur. Once the periarticular joint was cleaned, there remained approximately 50% of the articular cartilage to the head of the first metatarsal. The dorsal lateral aspect of the articular cartilage was denuded of appropriate hyaline cartilage. The dorsal half of the base of the proximal phalanx was also denuded devoid of hyaline cartilage. It was then decided that a Cartiva implant would be appropriate. A guidewire was then applied to the central portion of the first metatarsal head and driven proximally. A drill hole was made to the first metatarsal head allowing for a 10 mm Cartiva implant. The placement was confirmed with C-arm. The implant was approximately 3 to 4 mm proud to the surface of the first metatarsal head. Excellent range of motion was witnessed on the table. For dorsiflexion, there was approximately 40 degrees of dorsiflexion appreciated. The wound was flushed with copious amounts of normal saline and closure was then performed in layers. Deep closure was performed with 3-0 Vicryl, superficial with 4-0 Vicryl, skin closed with 4-0 Prolene in a horizontal mattress type stitch. Postoperative injection consisted of 11 mL of 0.5% Marcaine injected in a Henderson block. Also, 10 mg of dexamethasone was also injected into the first intermetatarsal space. Postoperative dressing consisted of Betadine soaked Adaptic, sterile 4 x 4, sterile Kerlix, all secured with a Coban wrap. The patient tolerated the anesthesia and procedure well, was transported from the operating room to the recovery area with vital signs stable and vascular status intact to all digits of the left foot. He was given a prescription for Keflex as well as Vicodin. The patient is to follow up in my office in 10 days' period of time or sooner if necessary. Job ID: [id number] DocumentID: [id number] Dictated Date: 02/24/2018 09:12:45 Pay Clerk Date: 02/24/2018 13:27:18 Dictated By: MARINA NARAYANAN DPM
--- NOTE | 2018-02-24 14:49 | Anesthesia-General Post-Op ---
General Patient Condition Mental Status/LOC: Same as Preop Cardiovascular: Satisfactory Nausea/Vomiting: Absent Respiratory: Satisfactory Pain: Controlled Complications: Absent Post Op Complications Complications None Follow Up Care/Instructions Patient Instructions None needed. Anesthesia/Patient Condition Patient Condition Patient is doing well, no complaints, stable vital signs, no apparent adverse anesthesia problems. No complications reported per nursing. MELCHOR SPRINGER CRNA Feb 24, 2018 14:49
== END 2018-02-24 11:10 | disposition home or self-care (01) ==
LOC: SDC 06:19
PROVIDERS: ATTEND Podiatrist Foot & Ankle Surgery
DX: M20.22 Hallux rigidus, left foot (principal); F17.210 Nicotine dependence, cigarettes, uncomplicated; F32.9 Major depressive disorder, single episode, unspecified; F41.9 Anxiety disorder, unspecified; Z79.899 Other long term (current) drug therapy